=== PATIENT | female | born 1970 | race Caucasian/White ===

== ENCOUNTER 2019-03-19 10:24 | Observation (INO) | payer OTHER ==
[2019-03-19] MEDS ORDERED: SODIUM CHLORIDE 0.9% 1,000 ML IV STA (11:52)
[2019-03-19] MEDS ORDERED: SODIUM CHLORIDE 0.9% 500 ML 500 ML IV STA (11:52)
[2019-03-19] MEDS ORDERED: ONDANSETRON 4 MG/2 ML VIAL IVP STA (11:52)
[2019-03-19] MEDS ORDERED: PANTOPRAZOLE 40 MG/10 ML VIAL IVP STA (11:52)
[2019-03-19] MEDS ORDERED: HYDROmorphone 0.5 MG/0.5 ML SYRINGE IVP STA (11:59)
[2019-03-19 12:10] LABS: Appearance,Urine Cloudy (Clear); Bacteria,Urine Rare /hpf; Bilirubin,Urine Negative (Negative); Blood,Urine Negative (Negative); Color,Urine Yellow; Glucose,Urine (UA) 4+ (Negative); Ketones,Urine 1+ (Negative); Leukocyte Esterase,Urine Negative (Negative); Mucus,Urine Occasional /hpf; Nitrite,Urine Negative (Negative); Protein,Urine Negative (Negative); Specific Gravity,Urine 1.034 (1.001-1.035); Squamous Epithelial Cell,Urine 2 /hpf (0-4); Urobilinogen,Urine <2.0 mg/dL (<2.0)
[2019-03-19 12:21] LABS: Basophils % (A) 0 %; Eosinophils % (A) 0 %; HCT 47.5 % (34.0-46.0); HGB 15.7 gm/dL (11.4-16.0); Lymphocytes # (A) 0.5 k/uL (1.0-4.8); Lymphocytes % (A) 5 %; MCH 28.5 pg (25.0-35.0); MCV 86.3 fL (80.0-100.0); Mean Platelet Volume 8.6; Monocytes # (A) 0.2 k/uL (0-1.0); Monocytes % (A) 2 %; Neutrophils # (A) 7.9 k/uL (1.3-7.7); Neutrophils % (A) 92 %; Platelet Count 178 k/uL (150-450); RBC 5.51 m/uL (3.80-5.40); RDW 14.3 % (11.5-15.5); WBC 8.7 k/uL (3.8-10.6)
--- NOTE | 2019-03-19 12:24 | ED ---
Nausea/Vomiting/Diarrhea HPI - General Chief complaint: Nausea/Vomiting/Diarrhea Stated complaint: N/V/D Time Seen by Provider: 03/19/19 11:15 Source: patient, RN notes reviewed, old records reviewed Mode of arrival: wheelchair Limitations: no limitations - History of Present Illness Initial comments: This is a 48-year-old female the ER for evaluation she presents today for evaluation regards to nausea vomiting. Severe nausea vomiting abdominal pain. No current diarrhea. No fevers. All 5 hours of similar complaints. Patient is unable to keep down anything here in the ER with active vomiting here in the ER. Patient denies travel history or sick contacts. Bowel pain is improved is related to vomiting per patient. MD complaint: nausea, vomiting -: days(s) Description of Vomiting: food contents, watery Description of Diarrhea: water, mucous Associated Abdominal Pain: Yes Location: diffuse Radiation: none Severity: mild Quality: cramping, aching Consistency: intermittent Improves with: none Worsens with: none Context: sick contacts Associated Symptoms: denies other symptoms - Related Data Home Medications Medication Instructions Recorded Confirmed Clindamycin HCl 600 mg PO ONCE PRN 05/28/15 03/19/19 Cyclobenzaprine [Flexeril] 10 mg PO HS PRN 05/28/15 03/19/19 Insulin Aspart [NovoLOG Flexpen] See Protocol SQ AC-TID 05/28/15 03/19/19 Latanoprost 1 drop BOTH EYES HS 05/28/15 03/19/19 Levothyroxine Sodium [Synthroid] 50 mcg PO DAILY 05/28/15 03/19/19 Omeprazole 20 mg PO DAILY 05/28/15 03/19/19 Pregabalin [Lyrica] 75 mg PO BID 05/28/15 03/19/19 Propranolol [Inderal] 40 mg PO BID 05/28/15 03/19/19 DULoxetine HCL [Cymbalta] 30 mg PO HS 03/19/19 03/19/19 Insulin Degludec [Tresiba 120 units SQ HS 03/19/19 03/19/19 Flextouch U-200] metFORMIN HCL ER [Glucophage Xr] 500 mg PO PC-SUPPER 03/19/19 03/19/19 Allergies Allergy/AdvReac Type Severity Reaction Status Date / Time ciprofloxacin [From Cipro] Allergy Itching Verified 03/19/19 11:13 ciprofloxacin HCl Allergy Itching Verified 03/19/19 11:13 [From Cipro] erythromycin base Allergy Swelling Verified 03/19/19 11:13 Penicillins Allergy CHEST PAIN Verified 03/19/19 11:13 AND RASH codeine AdvReac Nausea & Verified 03/19/19 11:13 Vomiting morphine AdvReac HARD TIME Verified 03/19/19 11:13 WAKING UP AND B/P DROPS VERY LOW sulfamethoxazole AdvReac Nausea & Verified 03/19/19 11:13 [From Bactrim] Vomiting tramadol HCl [From Ultram] AdvReac Nausea & Verified 03/19/19 11:13 Vomiting trimethoprim [From Bactrim] AdvReac Nausea & Verified 03/19/19 11:13 Vomiting Review of Systems ROS Statement: Those systems with pertinent positive or pertinent negative responses have been documented in the HPI. ROS Other: All systems not noted in ROS Statement are negative. Past Medical History Past Medical History: Diabetes Mellitus, Hyperlipidemia, Seizure Disorder, Thyroid Disorder Additional Past Medical History / Comment(s): endometriostis, History of Any Multi-Drug Resistant Organisms: None Reported Past Surgical History: Cholecystectomy Additional Past Surgical History / Comment(s): breast reduction, bladder suspension Past Psychological History: Depression Smoking Status: Never smoker Past Alcohol Use History: Occasional Past Drug Use History: None Reported General Exam Limitations: no limitations General appearance: alert, in no apparent distress Head exam: Present: atraumatic, normocephalic, normal inspection Eye exam: Present: normal appearance, PERRL, EOMI. Absent: scleral icterus, conjunctival injection, periorbital swelling ENT exam: Present: normal exam, mucous membranes dry Neck exam: Present: normal inspection. Absent: tenderness, meningismus, lymphadenopathy Respiratory exam: Present: normal lung sounds bilaterally. Absent: respiratory distress, wheezes, rales, rhonchi, stridor Cardiovascular Exam: Present: normal rhythm, tachycardia, normal heart sounds. Absent: systolic murmur, diastolic murmur, rubs, gallop, clicks GI/Abdominal exam: Present: soft, normal bowel sounds. Absent: distended, tenderness, guarding, rebound, rigid Extremities exam: Present: normal inspection, full ROM, normal capillary refill. Absent: tenderness, pedal edema, joint swelling, calf tenderness Back exam: Present: normal inspection Neurological exam: Present: alert, oriented X3, CN II-XII intact Psychiatric exam: Present: normal affect, normal mood Skin exam: Present: warm, dry, intact, normal color. Absent: rash Course Vital Signs 03/19/19 03/19/19 10:52 11:45 Temperature 99.0 F Pulse Rate 114 H 103 H Respiratory 18 20 Rate Blood Pressure 119/73 125/75 O2 Sat by Pulse 95 95 Oximetry - Reevaluation(s) Reevaluation #1: 03/19/19 13:45 Medical record is reviewed Reevaluation #2: 03/19/19 13:45 Improvement in symptoms Medical Decision Making - Medical Decision Making 78 female the ER was significant nausea vomiting. Patient be admitted for intractable nausea vomiting here in the emergency room. Patient denies significant abdominal pain currently pain is improved. Patient has history of back pain secondary to chronic back pain. No fevers. Labwork shows dehydration and patient will be admitted - Lab Data Result diagrams: 03/19/19 12:00 03/19/19 12:00 Lab Results 03/19/19 03/19/19 03/19/19 Range/Units 11:50 12:00 12:00 WBC 8.7 (3.8-10.6) k/uL RBC 5.51 H (3.80-5.40) m/uL Hgb 15.7 (11.4-16.0) gm/dL Hct 47.5 H (34.0-46.0) % MCV 86.3 (80.0-100.0) fL MCH 28.5 (25.0-35.0) pg MCHC 33.0 (31.0-37.0) g/dL RDW 14.3 (11.5-15.5) % Plt Count 178 (150-450) k/uL Neutrophils % 92 % Lymphocytes % 5 % Monocytes % 2 % Eosinophils % 0 % Basophils % 0 % Neutrophils # 7.9 H (1.3-7.7) k/uL Lymphocytes # 0.5 L (1.0-4.8) k/uL Monocytes # 0.2 (0-1.0) k/uL Eosinophils # 0.0 (0-0.7) k/uL Basophils # 0.0 (0-0.2) k/uL Sodium 142 (137-145) mmol/L Potassium 4.0 (3.5-5.1) mmol/L Chloride 105 (98-107) mmol/L Carbon Dioxide 24 (22-30) mmol/L Anion Gap 13 mmol/L BUN 14 (7-17) mg/dL Creatinine 0.72 (0.52-1.04) mg/dL Est GFR (CKD-EPI)AfAm >90 (>60 ml/min/1.73 sqM) Est GFR (CKD-EPI)NonAf >90 (>60 ml/min/1.73 sqM) Glucose 258 H (74-99) mg/dL Plasma Lactic Acid Ilia (0.7-2.0) mmol/L Calcium 9.5 (8.4-10.2) mg/dL Phosphorus 3.8 (2.5-4.5) mg/dL Magnesium 1.6 (1.6-2.3) mg/dL Total Bilirubin 2.4 H (0.2-1.3) mg/dL AST 26 (14-36) U/L ALT 31 (9-52) U/L Alkaline Phosphatase 105 (38-126) U/L Creatine Kinase 47 (30-135) U/L Troponin I (0.000-0.034) ng/mL Total Protein 7.0 (6.3-8.2) g/dL Albumin 4.6 (3.5-5.0) g/dL Lipase (23-300) U/L Urine Color Yellow Urine Appearance Cloudy H (Clear) Urine pH 5.0 (5.0-8.0) Ur Specific [place] 1.034 (1.001-1.035) Urine Protein Negative (Negative) Urine Glucose (UA) 4+ H (Negative) Urine Ketones 1+ H (Negative) Urine Blood Negative (Negative) Urine Nitrite Negative (Negative) Urine Bilirubin Negative (Negative) Urine Urobilinogen <2.0 (<2.0) mg/dL Ur Leukocyte Esterase Negative (Negative) Urine WBC 1 (0-5) /hpf Ur Squamous Epith Cells 2 (0-4) /hpf Urine Bacteria Rare H (None) /hpf Urine Mucus Occasional H (None) /hpf 03/19/19 03/19/19 03/19/19 Range/Units 12:00 12:00 12:00 WBC (3.8-10.6) k/uL RBC (3.80-5.40) m/uL Hgb (11.4-16.0) gm/dL Hct (34.0-46.0) % MCV (80.0-100.0) fL MCH (25.0-35.0) pg MCHC (31.0-37.0) g/dL RDW (11.5-15.5) % Plt Count (150-450) k/uL Neutrophils % % Lymphocytes % % Monocytes % % Eosinophils % % Basophils % % Neutrophils # (1.3-7.7) k/uL Lymphocytes # (1.0-4.8) k/uL Monocytes # (0-1.0) k/uL Eosinophils # (0-0.7) k/uL Basophils # (0-0.2) k/uL Sodium (137-145) mmol/L Potassium (3.5-5.1) mmol/L Chloride (98-107) mmol/L Carbon Dioxide (22-30) mmol/L Anion Gap mmol/L BUN (7-17) mg/dL Creatinine (0.52-1.04) mg/dL Est GFR (CKD-EPI)AfAm (>60 ml/min/1.73 sqM) Est GFR (CKD-EPI)NonAf (>60 ml/min/1.73 sqM) Glucose (74-99) mg/dL Plasma Lactic Acid Ilia 2.5 H* (0.7-2.0) mmol/L Calcium (8.4-10.2) mg/dL Phosphorus (2.5-4.5) mg/dL Magnesium (1.6-2.3) mg/dL Total Bilirubin (0.2-1.3) mg/dL AST (14-36) U/L ALT (9-52) U/L Alkaline Phosphatase (38-126) U/L Creatine Kinase (30-135) U/L Troponin I <0.012 (0.000-0.034) ng/mL Total Protein (6.3-8.2) g/dL Albumin (3.5-5.0) g/dL Lipase 94 (23-300) U/L Urine Color Urine Appearance (Clear) Urine pH (5.0-8.0) Ur Specific [place] (1.001-1.035) Urine Protein (Negative) Urine Glucose (UA) (Negative) Urine Ketones (Negative) Urine Blood (Negative) Urine Nitrite (Negative) Urine Bilirubin (Negative) Urine Urobilinogen (<2.0) mg/dL Ur Leukocyte Esterase (Negative) Urine WBC (0-5) /hpf Ur Squamous Epith Cells (0-4) /hpf Urine Bacteria (None) /hpf Urine Mucus (None) /hpf - EKG Data -: EKG Interpreted by Me (EKG shows sinus rhythm rate of 97, SD 186, QRS 90, QTc 467) Disposition Clinical Impression: Dehydration, Gastroenteritis, Nausea & vomiting Disposition: ADMITTED IP TO THIS HOSP Condition: Fair Is patient prescribed a controlled substance at d/c from ED?: No Referrals: Nataly Jones DO [Primary Care Provider] - 1-2 days
[2019-03-19 12:34] LABS: ALT 31 U/L (9-52); AST 26 U/L (14-36); African American GFR (CKD) >90 (>60 ml/min/1.73 sqM); Albumin 4.6 g/dL (3.5-5.0); Alkaline Phosphatase 105 U/L (38-126); Anion Gap 13 mmol/L; Blood Urea Nitrogen 14 mg/dL (7-17); Calcium 9.5 mg/dL (8.4-10.2); Carbon Dioxide 24 mmol/L (22-30); Chloride 105 mmol/L (98-107); Creatine Kinase 47 U/L (30-135); Glucose 258 mg/dL (74-99); Magnesium 1.6 mg/dL (1.6-2.3); Phosphorus 3.8 mg/dL (2.5-4.5); Sodium 142 mmol/L (137-145); Total Bilirubin 2.4 mg/dL (0.2-1.3)
--- NOTE | 2019-03-19 12:39 | XR ---
EXAMINATION TYPE: XR chest 2V DATE OF EXAM: 03/19/2019 COMPARISON: Chest x-ray February 22, 2013 HISTORY: Weakness. TECHNIQUE: Frontal and lateral views of the chest are obtained. FINDINGS: There is mild chronic parenchymal change without suspicious focal air space opacity, pleur al effusion, or pneumothorax seen. The cardiac silhouette size is stable and upper limits of normal. The osseous structures are intact. Cholecystectomy clips are seen on lateral view. IMPRESSION: No acute cardiopulmonary process. No significant change from prior.
[2019-03-19] MEDS ORDERED: ONDANSETRON 4 MG/2 ML VIAL IVP PRN (13:47)
[2019-03-19] MEDS ORDERED: HYDROmorphone 1 MG/ML 1 ML SYRINGE IVP PRN (13:47)
[2019-03-19] MEDS ORDERED: diphenhydrAMINE 50 MG/ML 1 ML VIAL IVP STA (13:47)
[2019-03-19] MEDS ORDERED: METOCLOPRAMIDE 5 MG/ML 2 ML VIAL IVP STA (13:47)
--- NOTE | 2019-03-19 14:44 | CT ---
EXAMINATION TYPE: CT abdomen pelvis w con DATE OF EXAM: 03/19/2019 HISTORY: Nausea, vomiting and diarrhea. CT DLP: 907.4mGycm Automated Exposure Control for Dose Reduction was Utilized. CONTRAST: CT scan of the abdomen and pelvis is performed with IV Contrast, patient injected with 100 mL of Isov ue M300. COMPARISON: CT abdomen and pelvis May 15, 2015 FINDINGS: LUNG BASES: Bibasilar linear scarring and/or atelectasis. LIVER/GB: Cholecystectomy clips are redemonstrated. PANCREAS: No significant abnormality is seen. SPLEEN: No significant abnormality is seen. ADRENALS: No significant abnormality is seen. KIDNEYS: There is stable 4 mm calculus mid pole level left kidney axial image 38. There is symmetric cortical medullary uptake and excretion without hydronephrosis seen bilaterally. A few small simple a ppearing thin-walled cysts are scattered throughout the right kidney laterally. Scattered bilateral p elvic phleboliths are redemonstrated. No intraluminal calculus and bladder is seen. BOWEL: Evaluation bowel suboptimal secondary to lack of enteric contrast. No suspicious small or larg e bowel dilatation. Mild wall thickening proximal to mid transverse colon through the rectum presumed product of poor distention, mild colitis is not entirely excluded UTERUS/ADNEXA: No gross abnormality seen. LYMPH NODES: No greater than 1cm abdominal or pelvic lymph nodes are appreciated. OSSEOUS STRUCTURES: Multilevel facet arthropathy mid to lower lumbar spine. OTHER: No significant additional abnormality is seen. IMPRESSION: No significant new or acute finding is seen to account for patient's clinical symptoms.
[2019-03-19] MEDS ORDERED: CYCLOBENZAPRINE 10 MG TAB PO PRN (15:02)
[2019-03-19] MEDS ORDERED: ACETAMINOPHEN TAB 325 MG TAB PO PRN (15:07)
--- NOTE | 2019-03-19 15:23 | P.HPIM ---
History of Present Illness H&P Date: 03/19/19 Chief Complaint: Vomiting and diarrhea 1 day This is a 48-year-old female, a patient of [facility]. She has a known past medical history of diabetes mellitus, hyperlipidemia, hypothyroidism, seizure disorder in which she is no longer on any medications and last seizure was 3-4 years ago. Patient presents to the emergency room with complaints of vomiting and diarrhea that started yesterday. She is unable to keep any fluids or foods down. She does have family members at home with similar symptoms. Patient had a low-grade temp of 99.3 heart rate of 114 and lactic level of 2.5 magnesium is 1.6. She's been given IV fluids Protonix and IV Zofran in the ER. Stool studies have been ordered. Computed tomography scan the abdomen and pelvis is negative. Chest x-ray is negative. UTI negative for infection. EKG normal sinus rhythm with a prolonged QT interval with QTC 467. Patient admits to having some chills. Denies any chest pain or shortness of breath. Denies any urinary symptoms. Complains of some epigastric discomfort. LFTs and lipase are normal. Review of Systems Please refer to HPI otherwise unremarkable Past Medical History Past Medical History: Diabetes Mellitus, Hyperlipidemia, Seizure Disorder, Thyroid Disorder Additional Past Medical History / Comment(s): endometriostis, History of Any Multi-Drug Resistant Organisms: None Reported Past Surgical History: Cholecystectomy Additional Past Surgical History / Comment(s): breast reduction, bladder suspension Past Psychological History: Depression Smoking Status: Never smoker Past Alcohol Use History: Occasional Past Drug Use History: None Reported Medications and Allergies Home Medications Medication Instructions Recorded Confirmed Type Clindamycin HCl 600 mg PO ONCE PRN 05/28/15 03/19/19 History Cyclobenzaprine [Flexeril] 10 mg PO HS PRN 05/28/15 03/19/19 History Insulin Aspart [NovoLOG Flexpen] See Protocol SQ AC-TID 05/28/15 03/19/19 History Latanoprost 1 drop BOTH EYES HS 05/28/15 03/19/19 History Levothyroxine Sodium [Synthroid] 50 mcg PO DAILY 05/28/15 03/19/19 History Omeprazole 20 mg PO DAILY 05/28/15 03/19/19 History Pregabalin [Lyrica] 75 mg PO BID 05/28/15 03/19/19 History Propranolol [Inderal] 40 mg PO BID 05/28/15 03/19/19 History DULoxetine HCL [Cymbalta] 30 mg PO HS 03/19/19 03/19/19 History Insulin Degludec [Tresiba 120 units SQ HS 03/19/19 03/19/19 History Flextouch U-200] metFORMIN HCL ER [Glucophage Xr] 500 mg PO PC-SUPPER 03/19/19 03/19/19 History Allergies Allergy/AdvReac Type Severity Reaction Status Date / Time ciprofloxacin [From Cipro] Allergy Itching Verified 03/19/19 15:03 ciprofloxacin HCl Allergy Itching Verified 03/19/19 15:03 [From Cipro] erythromycin base Allergy Swelling Verified 03/19/19 15:03 Penicillins Allergy CHEST PAIN Verified 03/19/19 15:03 AND RASH codeine AdvReac Nausea & Verified 03/19/19 15:03 Vomiting morphine AdvReac HARD TIME Verified 03/19/19 15:03 WAKING UP AND B/P DROPS VERY LOW sulfamethoxazole AdvReac Nausea & Verified 03/19/19 15:03 [From Bactrim] Vomiting tramadol HCl [From Ultram] AdvReac Nausea & Verified 03/19/19 15:03 Vomiting trimethoprim [From Bactrim] AdvReac Nausea & Verified 03/19/19 15:03 Vomiting Physical Exam Vitals: Vital Signs Temp Pulse Resp BP Pulse Ox 03/19/19 14:57 99.0 F 82 18 110/69 99 03/19/19 13:30 99.3 F 95 18 109/69 95 03/19/19 11:45 103 H 20 125/75 95 03/19/19 10:52 99.0 F 114 H 18 119/73 95 Intake and Output 03/19/19 03/19/19 03/19/19 06:59 14:59 22:59 Other: Weight 81.647 kg Head normocephalic Neck supple Lungs clear to auscultation bilaterally no wheezing or crackles Heart regular rate and rhythm S1-S2, no rub or gallop Abdomen is soft epigastric tenderness nondistended positive bowel sounds no hepatosplenomegaly Extremities no edema Neuro alert and orientated to 3 Results CBC & Chem 7: 03/19/19 12:00 03/19/19 12:00 Labs: Abnormal Lab Results - Last 24 Hours (Table) 03/19/19 03/19/19 03/19/19 Range/Units 11:50 12:00 12:00 RBC 5.51 H (3.80-5.40) m/uL Hct 47.5 H (34.0-46.0) % Neutrophils # 7.9 H (1.3-7.7) k/uL Lymphocytes # 0.5 L (1.0-4.8) k/uL Glucose 258 H (74-99) mg/dL Plasma Lactic Acid Ilia (0.7-2.0) mmol/L Total Bilirubin 2.4 H (0.2-1.3) mg/dL Urine Appearance Cloudy H (Clear) Urine Glucose (UA) 4+ H (Negative) Urine Ketones 1+ H (Negative) Urine Bacteria Rare H (None) /hpf Urine Mucus Occasional H (None) /hpf 03/19/19 Range/Units 12:00 RBC (3.80-5.40) m/uL Hct (34.0-46.0) % Neutrophils # (1.3-7.7) k/uL Lymphocytes # (1.0-4.8) k/uL Glucose (74-99) mg/dL Plasma Lactic Acid Ilia 2.5 H* (0.7-2.0) mmol/L Total Bilirubin (0.2-1.3) mg/dL Urine Appearance (Clear) Urine Glucose (UA) (Negative) Urine Ketones (Negative) Urine Bacteria (None) /hpf Urine Mucus (None) /hpf Assessment and Plan Assessment: 1. Intractable vomiting and diarrhea 1 day: Computed tomography scan abdomen and pelvis is negative. Continue IV Protonix and IV Zofran as needed. continue with IV fluid hydration. Check stool studies 2. Elevated lactic acid level likely related to dehydration: Continue with IV fluids. Repeat lactic acid level. 3. Diabetes mellitus type 2: Add sliding scale coverage. Check hemoglobin A1c. Resume patient's home insulin. Hold metformin during patient's hospitalization. 4. Hypomagnesemia magnesium level I.6. We'll give magnesium supplement. Repeat magnesium level in a.m. 5. Hypothyroidism continue Synthroid 6. Past history of a seizure disorder. Seizure medications were discontinued by her neurologist. Patient hasn't not had any seizure activity over the last 3-4 years. Medications discontinued 3-4 years ago. 7. EKG normal sinus rhythm with prolonged QT interval QTC of 467. Repeat EKG in a.m. GI prophylaxis Protonix and DVT prophylaxis Lovenox Time with Patient: Greater than 30 (Greater than 50% of the total time spent in counseling and coordination of care.I performed an examination of the patient and discussed their management with the physician Executive Assistant To General Counsel. I have reviewed the Physician Executive Assistant To General Counsel's notes and agree with the documented findings and plan of care)
[2019-03-19] MEDS ORDERED: MAGNESIUM SULFATE-D5W PMX 1 GM in DEXTROSE/WATER 1 100ML.BAG IVPB ONE (15:30)
[2019-03-19 18:10] LABS: Glucose,Whole Blood 141 mg/dL (75-99)
[2019-03-19] MEDS: INSULIN ASPART (NovoLOG) 100 UNIT/ML VIAL SQ SCH ×2 (18:24→21:51)
[2019-03-19] MEDS ORDERED: LATANOPROST 0.005% OPHTH DROPS 2.5 ML BTL BOTH EYES SCH (21:00)
[2019-03-19] MEDS ORDERED: INSULIN DETEMIR (LEVEMIR) 100 UNIT/ML SYR SQ SCH ×2 (21:00)
[2019-03-19] MEDS ORDERED: DULoxetine HCL 30 MG CAPSULE.DR PO SCH (21:00)
[2019-03-19 21:28] LABS: Glucose,Whole Blood 81 mg/dL (75-99)
[2019-03-19] MEDS: PROPRANOLOL 40 MG TAB PO SCH (21:55)
[2019-03-19] MEDS: PREGABALIN 75 MG CAP PO SCH (21:55)
[2019-03-20 01:21] LABS: Hemoglobin A1C 8.6 % (4.0-6.0)
[2019-03-20] MEDS: ACETAMINOPHEN TAB 500 MG TAB PO PRN ×2 (05:14→12:25)
[2019-03-20] MEDS ORDERED: LEVOTHYROXINE 50 MCG TAB PO SCH (06:30)
[2019-03-20 06:57] LABS: Glucose,Whole Blood 73 mg/dL (75-99)
[2019-03-20] MEDS: INSULIN ASPART (NovoLOG) 100 UNIT/ML VIAL SQ SCH ×2 (07:15→12:21)
[2019-03-20] MEDS: PROPRANOLOL 40 MG TAB PO SCH (08:53)
[2019-03-20] MEDS: PREGABALIN 75 MG CAP PO SCH (08:53)
[2019-03-20] MEDS ORDERED: PANTOPRAZOLE 40 MG/10 ML VIAL IVP SCH (09:00)
[2019-03-20] MEDS ORDERED: ENOXAPARIN 40 MG/0.4 ML SYRINGE SQ SCH (09:00)
[2019-03-20 09:35] VITALS: RESP 16
[2019-03-20 11:42] LABS: ALT 38 U/L (9-52); AST 27 U/L (14-36); African American GFR (CKD) >90 (>60 ml/min/1.73 sqM); Albumin 3.2 g/dL (3.5-5.0); Alkaline Phosphatase 74 U/L (38-126); Anion Gap 5 mmol/L; Blood Urea Nitrogen 9 mg/dL (7-17); Calcium 8.4 mg/dL (8.4-10.2); Carbon Dioxide 26 mmol/L (22-30); Chloride 110 mmol/L (98-107); Glucose 146 mg/dL (74-99); Magnesium 1.9 mg/dL (1.6-2.3); Potassium 3.5 mmol/L (3.5-5.1); Sodium 141 mmol/L (137-145); Total Bilirubin 2.6 mg/dL (0.2-1.3); Total Protein 5.3 g/dL (6.3-8.2)
[2019-03-20 11:55] LABS: Basophils % (A) 0 %; Eosinophils # (A) 0.1 k/uL (0-0.7); Eosinophils % (A) 1 %; HCT 39.4 % (34.0-46.0); Lymphocytes # (A) 1.3 k/uL (1.0-4.8); Lymphocytes % (A) 25 %; MCHC 31.8 g/dL (31.0-37.0); MCV 87.9 fL (80.0-100.0); Mean Platelet Volume 8.2; Monocytes # (A) 0.3 k/uL (0-1.0); Monocytes % (A) 6 %; Neutrophils # (A) 3.3 k/uL (1.3-7.7); Neutrophils % (A) 66 %; Platelet Count 147 k/uL (150-450); RBC 4.48 m/uL (3.80-5.40); RDW 14.2 % (11.5-15.5)
[2019-03-20 12:05] LABS: HGB 12.5 gm/dL (11.4-16.0)
[2019-03-20 12:17] LABS: Glucose,Whole Blood 140 mg/dL (75-99)
[2019-03-20 12:39] VITALS: BP 104/65; PULSE 72; TEMP 97.7
[2019-03-20] MEDS ORDERED: POTASSIUM CHLORIDE ER 20 MEQ TAB.ER PO STA (13:12)
--- NOTE | 2019-03-20 13:16 | P.DS ---
Providers Date of admission: 03/19/19 13:46 Expected date of discharge: 03/20/19 Attending physician: Osbaldo Noel Primary care physician: Nataly Jones [facility] Course: Discharge diagnosis 1. Intractable vomiting and diarrhea 1 day: Symptoms haven't resolved. Likely secondary to a viral gastroenteritis or food poisoning. Patient treated with IV fluids, Protonix and Zofran as needed. Computed tomography scan abdomen and pelvis is negative. Tolerated advancement of diet. 2. Elevated lactic acid level likely related to dehydration: Resolved with IV fluids 3. Diabetes mellitus type 2: Hemoglobin A1c 8.6. Continue with home insulin 4. Hypomagnesemia : Magnesium level I.9 at discharge improved with supplement 5. Hypothyroidism continue Synthroid 6. Past history of a seizure disorder. Seizure medications were discontinued by her neurologist. Patient hasn't not had any seizure activity over the last 3-4 years. Medications discontinued 3-4 years ago. 7. EKG normal sinus rhythm with prolonged QT interval QTC of 467. Repeat EKG showing a normal QTC Of 457 no longer having a prolonged QT interval 8. Hypokalemia potassium 3.5 at discharge. Patient received K-Dur 20 milliequivalents prior to discharge Hospital course This is a 48-year-old female, a patient of [facility]. She has a known past medical history of diabetes mellitus, hyperlipidemia, hypothyroidism, seizure disorder in which she is no longer on any medications and last seizure was 3-4 years ago. Patient presents to the emergency room with complaints of vomiting and diarrhea that started yesterday. She is unable to keep any fluids or foods down. She does have family members at home with similar symptoms. Patient had a low-grade temp of 99.3 heart rate of 114 and lactic level of 2.5 magnesium is 1.6. She's been given IV fluids Protonix and IV Zofran in the ER. Stool studies have been ordered. Computed tomography scan the abdomen and pelvis is negative. Chest x-ray is negative. UTI negative for infection. EKG normal sinus rhythm with a prolonged QT interval with QTC 467. Patient admits to having some chills. Denies any chest pain or shortness of breath. Denies any urinary symptoms. Complains of some epigastric discomfort. LFTs and lipase are normal. 03/20/2019 patient's symptoms have resolved. No longer having any diarrhea and therefore was unable to collect stool study. Vomiting also has resolved. She was treated with IV fluids, IV Protonix and Zofran as needed. Is no longer require the Zofran has tolerated advancement of diet. Symptoms resolved. Computed tomography scan of the abdomen showing no acute changes. Patient's epigastric level has also normalized. Patient's symptoms have improved she is medically stable for discharge. We'll have her follow-up with PCP in 1 week. Recommend checking BMP and magnesium level in 1 week. I performed an examination of the patient and discussed their management with the physician Supervisory Clerk. I have reviewed the Physician Supervisory Clerk's notes and agree with the documented findings and plan of care Patient Condition at Discharge: Stable Plan - Discharge Summary New Discharge Prescriptions: New Omeprazole 20 mg PO DAILY #30 tablet.dr Continue Propranolol [Inderal] 40 mg PO BID Cyclobenzaprine [Flexeril] 10 mg PO HS PRN PRN Reason: MUSCLE SPASMS Pregabalin [Lyrica] 75 mg PO BID Levothyroxine Sodium [Synthroid] 50 mcg PO DAILY Latanoprost 1 drop BOTH EYES HS Insulin Aspart [NovoLOG Flexpen] See Protocol SQ AC-TID Clindamycin HCl 600 mg PO ONCE PRN PRN Reason: DENTAL APPOINTMENTS metFORMIN HCL ER [Glucophage Xr] 500 mg PO PC-SUPPER Insulin Degludec [Tresiba Flextouch U-200] 100 units SQ HS DULoxetine HCL [Cymbalta] 30 mg PO HS Discontinued Omeprazole 20 mg PO DAILY Discharge Medication List Clindamycin HCl 600 mg PO ONCE PRN 05/28/15 [History] Cyclobenzaprine [Flexeril] 10 mg PO HS PRN 05/28/15 [History] Insulin Aspart [NovoLOG Flexpen] See Protocol SQ AC-TID 05/28/15 [History] Latanoprost 1 drop BOTH EYES HS 05/28/15 [History] Levothyroxine Sodium [Synthroid] 50 mcg PO DAILY 05/28/15 [History] Pregabalin [Lyrica] 75 mg PO BID 05/28/15 [History] Propranolol [Inderal] 40 mg PO BID 05/28/15 [History] DULoxetine HCL [Cymbalta] 30 mg PO HS 03/19/19 [History] Insulin Degludec [Tresiba Flextouch U-200] 100 units SQ HS 03/19/19 [History] metFORMIN HCL ER [Glucophage Xr] 500 mg PO PC-SUPPER 03/19/19 [History] Omeprazole 20 mg PO DAILY #30 tablet. 03/20/19 [Rx] Follow up Appointment(s)/Referral(s): Nataly Jones DO [Primary Care Provider] - 1 Week Activity/Diet/Wound Care/Special Instructions: Diet: bland and advance as tolerated over the next 3 days Activity: as tolerated Discharge Disposition: HOME SELF-CARE
== END 2019-03-20 14:17 | disposition home or self-care (01) ==
LOC: EC 10:24 → 6PED 13:46
PROVIDERS: ADMIT Internal Medicine; ATTEND Internal Medicine
DX: R11.2 Nausea with vomiting, unspecified (principal); E86.0 Dehydration; E83.42 Hypomagnesemia; R10.9 Unspecified abdominal pain; R19.7 Diarrhea, unspecified; R74.0 Nonspecific elevation of levels of transaminase and lactic acid dehydrogenase [LDH]; E11.9 Type 2 diabetes mellitus without complications; E03.9 Hypothyroidism, unspecified; E87.6 Hypokalemia; R68.83 Chills (without fever); E78.5 Hyperlipidemia, unspecified; F32.9 Major depressive disorder, single episode, unspecified; M54.9 Dorsalgia, unspecified; G89.29 Other chronic pain; Z79.4 Long term (current) use of insulin; Z79.890 Hormone replacement therapy; Z79.899 Other long term (current) drug therapy; Z88.0 Allergy status to penicillin; Z88.1 Allergy status to other antibiotic agents; Z88.2 Allergy status to sulfonamides; Z88.5 Allergy status to narcotic agent; Z90.49 Acquired absence of other specified parts of digestive tract; Z87.42 Personal history of other diseases of the female genital tract; Z86.69 Personal history of other diseases of the nervous system and sense organs
CPT/HCPCS: 96361 ×3; 96372; 96376; 96365; 96375; 99285; 36415; 93005 ×2; 80053 ×2; 82550; 83605; 83690; 83735 ×2; 84100; 84484; 85025 ×2; 81001; 83036; 71046; 74177; G0378 ×2; J1200; J2765; J2405; J1650; J3475; C9113 ×2; J1170; Q9967

== ENCOUNTER 2019-07-03 18:52 | Emergency (ER) | payer OTHER ==
[2019-07-03 19:27] VITALS: RESP 18
[2019-07-03] MEDS ORDERED: HYDROmorphone 0.5 MG/0.5 ML SYRINGE IVP STA (19:39)
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
[2019-07-03 20:28] LABS: Glucose,Whole Blood 113 mg/dL (75-99)
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
[2019-07-03] MEDS ORDERED: ONDANSETRON 4 MG/2 ML VIAL IVP STA (21:04)
[2019-07-03 22:28] VITALS: BP 115/83; PULSE 64; TEMP 97.5
== END 2019-07-03 22:28 | disposition home or self-care (01) ==
LOC: EC 18:52
DX: S16.1XXA Strain of muscle, fascia and tendon at neck level, initial encounter (principal); R51 Headache; E11.9 Type 2 diabetes mellitus without complications; G40.909 Epilepsy, unspecified, not intractable, without status epilepticus; H40.9 Unspecified glaucoma; F32.9 Major depressive disorder, single episode, unspecified; Z88.0 Allergy status to penicillin; Z88.1 Allergy status to other antibiotic agents; Z88.2 Allergy status to sulfonamides; Z88.5 Allergy status to narcotic agent; Z79.4 Long term (current) use of insulin; Z79.899 Other long term (current) drug therapy; V59.49XA Driver of pick-up truck or van injured in collision with other motor vehicles in traffic accident, initial encounter; Y92.410 Unspecified street and highway as the place of occurrence of the external cause
CPT/HCPCS: 36415; 72125; 70450; 99285; 96374; 96375; J2405; J1170

== ENCOUNTER 2019-07-31 07:04 | Emergency (ER) | payer OTHER ==
[2019-07-31] MEDS ORDERED: FAMOTIDINE 20 MG/2 ML VIAL IV STA (07:19)
[2019-07-31] MEDS ORDERED: diphenhydrAMINE 50 MG/ML 1 ML VIAL IVP STA (07:19)
[2019-07-31] MEDS ORDERED: methylPREDNISolone SOD SUCCI 125 MG/2 ML VIAL IV STA (07:20)
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
[2019-07-31 07:32] VITALS: RESP 18
[2019-07-31 08:00] LABS: Basophils % (A) 0 %; Eosinophils # (A) 0.1 k/uL (0-0.7); Eosinophils % (A) 1 %; HCT 48.4 % (34.0-46.0); HGB 16.2 gm/dL (11.4-16.0); Lymphocytes # (A) 2.3 k/uL (1.0-4.8); Lymphocytes % (A) 20 %; MCH 29.4 pg (25.0-35.0); MCHC 33.4 g/dL (31.0-37.0); MCV 87.9 fL (80.0-100.0); Mean Platelet Volume 6.6; Monocytes # (A) 0.2 k/uL (0-1.0); Monocytes % (A) 2 %; Neutrophils # (A) 9.1 k/uL (1.3-7.7); Neutrophils % (A) 77 %; Platelet Count 269 k/uL (150-450); RBC 5.51 m/uL (3.80-5.40); RDW 13.2 % (11.5-15.5); WBC 11.8 k/uL (3.8-10.6)
[2019-07-31 08:09] LABS: Albumin 3.8 g/dL (3.5-5.0); Calcium 9.2 mg/dL (8.4-10.2); Potassium 3.5 mmol/L (3.5-5.1); Total Bilirubin 1.8 mg/dL (0.2-1.3); Total Protein 6.3 g/dL (6.3-8.2)
[2019-07-31] MEDS ORDERED: SODIUM CHLORIDE 0.9% 500 ML 500 ML IV STA (08:49)
--- NOTE | 2019-07-31 08:58 | CT ---
EXAMINATION TYPE: CT brain tab wo con DATE OF EXAM: 07/31/2019 COMPARISON: 07/03/2019 HISTORY: 48-year-old female with head pain, confusion, altered mental status post fall CT DLP: 1459.3 mGycm Automated exposure control for dose reduction was used. Technique: Examination of the head was done in axial plane without intravenous contrast. Coronal and sagittal reconstructions performed. CT of the cervical spine was obtained in axial plane without intravenous injection of contrast mater ial. Coronal and sagittal reformatted images were obtained from the axial views for evaluation of f ractures, spinal alignment and canal. FINDINGS: Head: There is no evidence of acute intracranial hemorrhage, acute ischemic changes, mass, mass-effect, or extra-axial fluid collection. There is no effacement of cerebral sulci or basal subarachnoid cister ns. There is no hydrocephalus. There is no midline shift. Weller-white matter distinction is preserv ed. Benign basal ganglionic calcifications. Mastoid air cells well pneumatized. Orbits and globes are int act. No calvarial fracture. Paranasal sinuses and mastoid air cells well pneumatized. Rightward nasal sep david deviation. Cervical spine: Small amount of venous air within the left supraclavicular fossa likely relating to peripheral line p lacement. The alignment of the cervical spine is normal on coronal and reformatted images. There is n o cranial vertebral abnormality. Fracture of the cervical spine is not seen. Assessment of the spinal canal from C4-C5 and below is limited due to artifact from patient's shoulders. Mild degenerative di sc disease mid to lower cervical spine. No significant neuroforaminal stenosis seen. Sagittal and cor onal reformatted images confirm above findings. COMBINED IMPRESSION: 1. No acute intracranial abnormality seen. 2. No acute fracture or malalignment of the cervical spine.
--- NOTE | 2019-07-31 09:28 | XR ---
EXAMINATION TYPE: AP view pelvis and 2 views left hip DATE OF EXAM: 07/31/2019 COMPARISON: NONE HISTORY: 48-year-old female with fall and left hip pain FINDINGS: Mild marginal spurring along the acetabular margin. No acute fracture, subluxation, or dislocation is seen. Multiple pelvic phleboliths. IMPRESSION: No acute osseous abnormality seen.
--- NOTE | 2019-07-31 09:30 | XR ---
EXAMINATION TYPE: XR chest 2V DATE OF EXAM: 07/31/2019 COMPARISON: 03/19/2019 HISTORY: Weakness and hypoxemia TECHNIQUE: Frontal and lateral views of the chest are obtained. FINDINGS: New somewhat nodular density in the right lower lung. Strand-like left basilar atelectasis is seen. No suspicious focal consolidation, pleural effusion or pneumothorax. Cardiomediastinal silh ouette is upper limits of normal size. Cholecystectomy clips are seen. IMPRESSION: New somewhat nodular density in the right lower lung. Short-term follow-up chest x-ray w ith good inspiration is recommended as this nodular density was not seen on the exam of 03/19/2019 and therefore may simply represent atelectasis versus small pulmonary nodule. Linear atelectasis at the left lung base is also seen, subsegmental.
[2019-07-31 10:10] VITALS: BP 117/79; PULSE 66; TEMP 97.4
== END 2019-07-31 10:10 | disposition home or self-care (01) ==
LOC: EC 07:04
DX: R60.0 Localized edema (principal); T50.905A Adverse effect of unspecified drugs, medicaments and biological substances, initial encounter; R68.89 Other general symptoms and signs; R53.83 Other fatigue; E11.9 Type 2 diabetes mellitus without complications; H40.9 Unspecified glaucoma; G40.909 Epilepsy, unspecified, not intractable, without status epilepticus; F32.9 Major depressive disorder, single episode, unspecified; Z88.0 Allergy status to penicillin; Z88.1 Allergy status to other antibiotic agents; Z88.2 Allergy status to sulfonamides; Z88.5 Allergy status to narcotic agent; Z79.4 Long term (current) use of insulin; Z79.891 Long term (current) use of opiate analgesic; Z79.899 Other long term (current) drug therapy
CPT/HCPCS: 99285; 96374; 96375 ×2; 36415; 93005; 80053; 82550; 83690; 83735; 84484; 85025; 73502; 71046; 72125; 70450; J1200; J2930

== ENCOUNTER 2019-11-08 06:44 | Day surgery (SDC) | payer OTHER ==
[2019-11-05 14:08] VITALS: BMI 28.1
[~2019-11-08 06:44] MED LIST: LACTATED RINGERS 1,000 ML IV SCH; LIDOCAINE 1% 20 ML VIAL (10MG/ML) FOR IV START INTRADERMA PRN
[2019-11-08 07:19] VITALS: TEMP 97.8
[2019-11-08 07:26] LABS: Glucose,Whole Blood 215 mg/dL (75-99)
[2019-11-08] MEDS ORDERED: LIDOCAINE 1% INJ 10MG/ML (20 ML MDV) ONE (07:40)
[2019-11-08] MEDS ORDERED: PROPOFOL 10 MG/ML 20 ML VIAL IV ONE (07:40)
--- NOTE | 2019-11-08 07:52 | P.GSHP ---
History of Present Illness H&P Date: 11/08/19 Chief Complaint: GERD, diarrhea This a 49-year-old female who presents today for EGD and colonoscopy. She is issues with GERD and diarrhea. Past Medical History Past Medical History: Diabetes Mellitus, Hyperlipidemia, Seizure Disorder, Thyroid Disorder Additional Past Medical History / Comment(s): endometriosis, glaucoma. taken off seizure meds. 2016 no seizure activity since History of Any Multi-Drug Resistant Organisms: None Reported Past Surgical History: Bladder Surgery, Breast Surgery, Cholecystectomy, Hysterectomy Additional Past Surgical History / Comment(s): breast reduction, bladder suspension Past Anesthesia/Blood Transfusion Reactions: No Reported Reaction Additional Past Anesthesia/Blood Transfusion Reaction / Comment(s): never had Past Psychological History: Depression Smoking Status: Never smoker Past Alcohol Use History: Rare Past Drug Use History: None Reported - Past Family History Mother Family Medical History: Coronary Artery Disease (CAD), Hypertension Father Family Medical History: Blood Disorder, Coronary Artery Disease (CAD), Myocardial Infarction ([place]) Additional Family Medical History / Comment(s): polycythemia blood disorder Medications and Allergies Home Medications Medication Instructions Recorded Confirmed Type Insulin Aspart [NovoLOG Flexpen] See Protocol SQ AC-TID PRN 05/28/15 11/08/19 History Latanoprost 1 drop BOTH EYES HS 05/28/15 11/08/19 History Pregabalin [Lyrica] 75 mg PO HS 05/28/15 11/08/19 History Propranolol [Inderal] 40 mg PO HS 05/28/15 11/08/19 History DULoxetine HCL [Cymbalta] 30 mg PO HS 03/19/19 11/08/19 History Insulin Degludec [Tresiba 100 units SQ HS 03/19/19 11/08/19 History Flextouch U-200] metFORMIN HCL ER [Glucophage Xr] 500 mg PO HS 03/19/19 11/08/19 History Magnesium 200 mg PO HS 07/03/19 11/08/19 History diphenhydrAMINE HCL [Benadryl] 25 mg PO HS 07/03/19 11/08/19 History Cyclobenzaprine [Flexeril] 10 mg PO TID PRN 11/05/19 11/08/19 History EPINEPHrine (Auto Inject) [Epipen] 0.3 mg IM ONCE PRN 11/05/19 11/08/19 History Levothyroxine Sodium [Synthroid] 50 mcg PO DAILY 11/05/19 11/08/19 History Timolol 0.25% Ophth Soln [Timoptic 1 drops BOTH EYES HS 11/08/19 11/08/19 History 0.25% Ophth Soln] Allergies Allergy/AdvReac Type Severity Reaction Status Date / Time ciprofloxacin [From Cipro] Allergy Itching Verified 11/05/19 13:55 ciprofloxacin HCl Allergy Itching Verified 11/05/19 13:55 [From Cipro] erythromycin base Allergy Swelling Verified 11/05/19 13:55 naproxen Allergy Anaphylaxis Verified 11/05/19 13:55 Penicillins Allergy CHEST PAIN Verified 11/05/19 13:55 AND RASH codeine AdvReac Nausea & Verified 11/05/19 13:55 Vomiting morphine AdvReac HARD TIME Verified 11/05/19 13:55 WAKING UP AND B/P DROPS VERY LOW sulfamethoxazole AdvReac Nausea & Verified 11/05/19 13:55 [From Bactrim] Vomiting tramadol HCl [From Ultram] AdvReac Nausea & Verified 11/05/19 13:55 Vomiting trimethoprim [From Bactrim] AdvReac Nausea & Verified 11/05/19 13:55 Vomiting Surgical - Exam Vital Signs Temp Pulse Resp BP Pulse Ox 97.8 F 107 H 20 125/92 95 11/08/19 07:13 11/08/19 07:13 11/08/19 07:13 11/08/19 07:13 11/08/19 07:13 - General well developed, well nourished, no distress - Eyes PERRL - ENT normal pinna - Neck no masses - Respiratory normal expansion - Cardiovascular Rhythm: regular - Abdomen Abdomen: soft Results - Labs Abnormal Lab Results - Last 24 Hours (Table) 11/08/19 Range/Units 07:17 POC Glucose (mg/dL) 215 H (75-99) mg/dL Assessment and Plan Assessment: GERD. We'll perform EGD and colonoscopy
--- NOTE | 2019-11-08 08:07 | P.OP ---
Date of Procedure: 11/08/19 Preoperative Diagnosis: GERD Diarrhea Postoperative Diagnosis: Antral gastritis No evidence of hiatal hernia Procedure(s) Performed: EGD Anesthesia: MAC Surgeon: Tu Pena Pathology: other (Antrum) Condition: stable Disposition: PACU Description of Procedure: The patient's placed on the endoscopy table in the lateral position. She received IV sedation. The gastroscope placed oropharynx and passed in the esophagus and into the stomach. Scope was then placed through the pylorus. The first and second portion of the duodenum appeared normal. Scope was then brought back the antrum and this is mildly inflamed. A biopsies performed. Scope was then retroflexed and remainder of the stomach appeared normal. The GE junction was at 40 cm. The distal esophagus appeared normal. There is no significant hiatal hernia. The proximal esophagus appeared normal. Scope withdrawn for patient. Next digital rectal exam was performed. There were no abnormalities. The possible colonoscope was then placed patient anus passed throughout the entire colon. The ileocecal valve was visualized. The cecum, ascending and transverse colon appeared normal. The descending and sigmoid colon appeared normal. The scope was then brought back the rectum this appeared normal. There is known to any inflammatory changes or any evidence of colitis. Scope was withdrawn for patient.
[2019-11-08 08:25] VITALS: BP 104/66; PULSE 80; RESP 16
== END 2019-11-08 09:03 | disposition home or self-care (01) ==
LOC: ORWHC2ENDO 06:44
PROVIDERS: ATTEND Surgery
DX: K29.50 Unspecified chronic gastritis without bleeding (principal); K21.9 Gastro-esophageal reflux disease without esophagitis; R19.7 Diarrhea, unspecified; E11.9 Type 2 diabetes mellitus without complications; E78.5 Hyperlipidemia, unspecified; E07.9 Disorder of thyroid, unspecified; N80.9 Endometriosis, unspecified; H40.9 Unspecified glaucoma; F32.9 Major depressive disorder, single episode, unspecified; K08.89 Other specified disorders of teeth and supporting structures; Z86.69 Personal history of other diseases of the nervous system and sense organs; Z98.890 Other specified postprocedural states; Z90.49 Acquired absence of other specified parts of digestive tract; Z90.710 Acquired absence of both cervix and uterus; Z79.4 Long term (current) use of insulin; Z79.899 Other long term (current) drug therapy; Z79.890 Hormone replacement therapy; Z88.1 Allergy status to other antibiotic agents; Z88.6 Allergy status to analgesic agent; Z88.0 Allergy status to penicillin; Z88.5 Allergy status to narcotic agent; Z88.2 Allergy status to sulfonamides; Z97.2 Presence of dental prosthetic device (complete) (partial); Z82.49 Family history of ischemic heart disease and other diseases of the circulatory system; Z83.2 Family history of diseases of the blood and blood-forming organs and certain disorders involving the immune mechanism
CPT/HCPCS: 88305; 45378; 43239; J2001; J2704

== ENCOUNTER → 2019-12-06 | Outpatient (CLI) | payer OTHER ==
[2019-12-06 11:50] LABS: African American GFR (CKD) >90 (>60 ml/min/1.73 sqM); Basophils % (A) 1 %; Blood Urea Nitrogen 16 mg/dL (7-17); Eosinophils # (A) 0.2 k/uL (0-0.7); Eosinophils % (A) 3 %; HCT 45.5 % (34.0-46.0); HGB 14.2 gm/dL (11.4-16.0); Lymphocytes % (A) 28 %; MCH 28.2 pg (25.0-35.0); MCHC 31.2 g/dL (31.0-37.0); MCV 90.5 fL (80.0-100.0); Mean Platelet Volume 8.5; Monocytes # (A) 0.3 k/uL (0-1.0); Monocytes % (A) 4 %; Neutrophils # (A) 4.6 k/uL (1.3-7.7); Neutrophils % (A) 64 %; Non-African American GFR(CKD) >90 (>60 ml/min/1.73 sqM); Platelet Count 248 k/uL (150-450); Potassium 4.3 mmol/L (3.5-5.1); RBC 5.03 m/uL (3.80-5.40); RDW 13.1 % (11.5-15.5); WBC 7.1 k/uL (3.8-10.6)
== END | disposition home or self-care (01) ==
LOC: LABPAT 10:02
PROVIDERS: ATTEND Surgery
DX: Z01.812 Encounter for preprocedural laboratory examination (principal); K21.0 Gastro-esophageal reflux disease with esophagitis; F17.200 Nicotine dependence, unspecified, uncomplicated; D64.9 Anemia, unspecified
CPT/HCPCS: 36415; 82565; 84132; 84520; 85025

== ENCOUNTER 2019-12-07 08:35 | Observation (INO) | payer OTHER ==
[~2019-12-07 08:35] MED LIST changes: +DEXAMETHASONE SOD PHOSPHATE 10 MG/ML 1 ML VIAL IV ONE; +HEPARIN SODIUM,PORCINE 5,000 UNIT/ML 1 ML VIAL SQ ONE; +HYDROmorphone 0.5 MG/0.5 ML SYRINGE IVP PRN; -LACTATED RINGERS 1,000 ML IV SCH; +LIDOCAINE 1% (10MG/ML) FOR IV START INTRADERMA PRN; -LIDOCAINE 1% 20 ML VIAL (10MG/ML) FOR IV START INTRADERMA PRN; +MIDAZOLAM 2 MG/2 ML VIAL IV PRN; +ONDANSETRON 4 MG/2 ML VIAL IVP ONE
[2019-12-07] MEDS: LACTATED RINGERS 1,000 ML IV SCH ×2 (09:06→22:10)
[2019-12-07 09:07] LABS: Glucose,Whole Blood 75 mg/dL (75-99)
[2019-12-07] MEDS ORDERED: DEXTROSE 50% SYRINGE 50 ML IVP ONE (09:48)
[2019-12-07 10:05] LABS: Glucose,Whole Blood 150 mg/dL (75-99)
--- NOTE | 2019-12-07 10:13 | P.GSHP ---
History of Present Illness H&P Date: 12/07/19 Chief Complaint: GERD This is a 49-year-old female referred from [facility] Woo np. The patient has had long-standing problems with reflux esophagitis. The patient underwent recent EGD is found have evidence of esophagitis. Patient has been well informe d on the procedure of laparoscopic Ale fundoplication. The patient is aware the risk of the conversion to the open procedure, risk of injury to the stomach, liver and spleen. The patient is also a risk of recurrent GERD and dysphagia symptoms. The patient understands there is a postoperative diet of full liquids for 2 weeks after surgery. Past Medical History Past Medical History: Diabetes Mellitus, GERD/Reflux, Hyperlipidemia, Seizure Disorder, Thyroid Disorder Additional Past Medical History / Comment(s): endometritis, glaucoma. last seizure 2007 does not take meds now History of Any Multi-Drug Resistant Organisms: None Reported Past Surgical History: Bladder Surgery, Breast Surgery, Cholecystectomy Additional Past Surgical History / Comment(s): breast reduction, bladder suspension Additional Past Anesthesia/Blood Transfusion Reaction / Comment(s): "come out a little slower" Smoking Status: Never smoker - Past Family History Mother Family Medical History: Coronary Artery Disease (CAD), CVA/TIA, Hypertension Father Family Medical History: Cancer, Coronary Artery Disease (CAD), Myocardial Infarction ([place]) Additional Family Medical History / Comment(s): polycythemia. from massive heart attack Medications and Allergies Home Medications Medication Instructions Recorded Confirmed Type Insulin Aspart [NovoLOG Flexpen] See Protocol SQ AC-TID PRN 05/28/15 12/07/19 History Latanoprost 1 drop BOTH EYES HS 05/28/15 12/07/19 History Pregabalin [Lyrica] 75 mg PO HS 05/28/15 12/07/19 History Propranolol [Inderal] 40 mg PO HS 05/28/15 12/07/19 History DULoxetine HCL [Cymbalta] 30 mg PO HS 03/19/19 12/07/19 History Insulin Degludec [Tresiba 100 units SQ HS 03/19/19 12/07/19 History Flextouch U-200] metFORMIN HCL ER [Glucophage Xr] 500 mg PO HS 03/19/19 12/07/19 History Magnesium 200 mg PO HS 07/03/19 12/07/19 History diphenhydrAMINE HCL [Benadryl] 25 mg PO HS 07/03/19 12/07/19 History EPINEPHrine (Auto Inject) [Epipen] 0.3 mg IM ONCE PRN 11/05/19 12/07/19 History Levothyroxine Sodium [Synthroid] 50 mcg PO HS 11/05/19 12/07/19 History Timolol 0.25% Ophth Soln [Timoptic 1 drops BOTH EYES DAILY 11/08/19 12/07/19 History 0.25% Ophth Soln] Soy Isofla/Blk Cohosh/Mag Bark 155 mg PO HS 12/04/19 12/07/19 History [Estroven 155 mg Capsule] Allergies Allergy/AdvReac Type Severity Reaction Status Date / Time ciprofloxacin [From Cipro] Allergy Itching Verified 12/07/19 08:53 ciprofloxacin HCl Allergy Itching Verified 12/07/19 08:53 [From Cipro] erythromycin base Allergy Swelling Verified 12/07/19 08:53 naproxen Allergy Anaphylaxis Verified 12/07/19 08:53 Penicillins Allergy CHEST PAIN Verified 12/07/19 08:53 AND RASH codeine AdvReac Nausea & Verified 12/07/19 08:53 Vomiting morphine AdvReac HARD TIME Verified 12/07/19 08:53 WAKING UP AND B/P DROPS VERY LOW sulfamethoxazole AdvReac Nausea & Verified 12/07/19 08:53 [From Bactrim] Vomiting tramadol HCl [From Ultram] AdvReac Nausea & Verified 12/07/19 08:53 Vomiting trimethoprim [From Bactrim] AdvReac Nausea & Verified 12/07/19 08:53 Vomiting Surgical - Exam Vital Signs Temp Pulse Resp BP Pulse Ox 97.4 F L 67 16 133/80 93 L 12/07/19 08:56 12/07/19 08:56 12/07/19 08:56 12/07/19 08:56 12/07/19 08:56 - General well developed, well nourished, no distress - Eyes PERRL - ENT normal pinna - Neck no masses - Respiratory normal expansion - Cardiovascular Rhythm: regular - Abdomen Abdomen: soft, non tender Results - Labs Abnormal Lab Results - Last 24 Hours (Table) 12/07/19 Range/Units 10:04 POC Glucose (mg/dL) 150 H (75-99) mg/dL Assessment and Plan Assessment: GERD. We'll perform laparoscopic Ale fundoplication.
[2019-12-07] MEDS ORDERED: NEOSTIGMINE 1 MG/ML 10 ML VIAL ONE (10:41)
[2019-12-07] MEDS ORDERED: SUCCINYLCHOLINE CHLORIDE 100 MG/5 ML SYR IV ONE (10:41)
[2019-12-07] MEDS ORDERED: KETOROLAC 30 MG/ML 1 ML VIAL ONE (10:41)
[2019-12-07] MEDS ORDERED: ePHEDrine SULFATE/0.9% NACL/PF 50 MG/5 ML SYRINGE IV ONE (10:41)
[2019-12-07] MEDS ORDERED: ROCURONIUM BROMIDE 10 MG/ML 5 ML VIAL IV ONE (10:41)
[2019-12-07] MEDS ORDERED: fentaNYL (PF) 50 MCG/ML 2 ML AMP ONE (10:41)
[2019-12-07] MEDS ORDERED: PROPOFOL 10 MG/ML 20 ML VIAL IV ONE (10:41)
[2019-12-07] MEDS ORDERED: GLYCOPYRROLATE 0.2 MG/ML 2 ML VIAL ONE (10:41)
[2019-12-07] MEDS ORDERED: MIDAZOLAM 2 MG/2 ML VIAL ONE (10:41)
[2019-12-07] MEDS ORDERED: LIDOCAINE 1% INJ 10MG/ML (20 ML MDV) ONE (10:41)
[2019-12-07] MEDS ORDERED: LACTATED RINGERS 1,000 ML IV ONE (10:56)
[2019-12-07] MEDS ORDERED: LIDOCAINE 1%-EPI 1:100,000 20 ML VIAL SQ ONE (11:11)
[2019-12-07] MEDS ORDERED: ONDANSETRON 4 MG/2 ML VIAL IVP PRN (11:49)
--- NOTE | 2019-12-07 11:49 | P.OP ---
Date of Procedure: 12/07/19 Preoperative Diagnosis: gERD Postoperative Diagnosis: Gerd Procedure(s) Performed: Laparoscopic Ale fundal plication Anesthesia: THALIA Surgeon: Tu Pena Estimated Blood Loss (ml): 5 Pathology: none sent Condition: stable Disposition: PACU Description of Procedure: HThe patient was placed on the operating table in the supine position. The patient received general anesthesia. And was placed in dorsal lithotomy position. The patient was prepped and draped in the usual sterile fashion. The skin incision sites were anesthetized with 1% local Xylocaine. The skin was incised in the left periumbilical area and then using a blade less 5 mm trocar under direct visualization panel cavity was entered. After adequate insufflation the laparoscope was then placed into the peritoneal cavity. Next a 5 mm trochars placed in the right epigastric position. Another 5 millimeter trocar the right lateral position. Another 5 millimeter trocar in the left lateral position a 5 mm trocar is placed in the left epigastric position. And then the initial 5 mm trocar was exchanged for a 10 mm trocar. The left lateral lobe liver was retracted. The hernia was seen. The crural defect was then dissected using the Harmonic scissors device. A 360 crural dissection was performed the esophagus stomach was reduced back into the peritoneal Cavity. The crural defect was then closed using 2-0 Ethibond suture. Next the fundus of the stomach was mobilized using the [place] scissors device. and then a 58- [place] bougie dilator was placed oropharynx passed into the esophagus and stomach the fundal plication wrap was then performed by grasping the fundus pos teriorly and bringing it around the esophagus and stomach fundoplication was then performed using 2-0 Ethibond suture. Care was taken that the fundal location rested over top of the intra-abdominal esophagus. There was no injury seen to the stomach or esophagus. The dilator was then withdrawn. The abdomen was irrigated there is no bleeding seen. The trochars were then withdrawn and then skin incision sites were closed using 3-0 Monocryl suture Steri-Strips are applied. Patient thought procedure well and sent to recovery room in stable condition.
[2019-12-07 13:16] LABS: Glucose,Whole Blood 106 mg/dL (75-99)
--- NOTE | 2019-12-07 14:39 | FL ---
EXAMINATION TYPE: FL esophagus cervic/pharynx DATE OF EXAM: 12/07/2019 LIMITED UGI-ESOPHAGRAM: CLINICAL HISTORY: Post Kareem fundoplication TECHNIQUE: Limited esophagram is performed utilizing Isovue 370. A total of 0.33 minutes of fluorosc opic time was utilized during procedure. FINDINGS: The patient swallowed contrast without difficulty or delay. Esophageal peristalsis and mo tility are within normal limits. There is good flow of contrast to the gastroesophageal junction. The re is some mild hesitancy at the postsurgical site. No obstruction is evident. Note is made of some mild free air present during the examination which can be postoperative. IMPRESSION: 1. Normal postop Kareem fundoplication. No extravasation or obstruction of contrast is evident.
[2019-12-07] MEDS: D5-0.45% NACL WITH KCL 20MEQ/L 1,000 ML IV SCH ×2 (14:52→22:01)
[2019-12-07] MEDS: HYDROmorphone 1 MG/ML 1 ML SYRINGE IVP PRN ×2 (16:25→22:09)
[2019-12-07 17:20] LABS: Glucose,Whole Blood 172 mg/dL (75-99)
[2019-12-07] MEDS: INSULIN ASPART (NovoLOG) 100 UNIT/ML VIAL SQ SCH ×3 (17:48→21:35)
[2019-12-07] MEDS ORDERED: PROPRANOLOL 40 MG TAB PO SCH (21:00)
[2019-12-07] MEDS ORDERED: PREGABALIN 75 MG CAP PO SCH (21:00)
[2019-12-07] MEDS ORDERED: LATANOPROST 0.005% OPHTH DROPS 2.5 ML BTL BOTH EYES SCH (21:00)
[2019-12-07] MEDS ORDERED: LEVOTHYROXINE 50 MCG TAB PO SCH (21:00)
[2019-12-07] MEDS ORDERED: MAGNESIUM OXIDE 400 MG TAB PO SCH (21:00)
[2019-12-07] MEDS ORDERED: DULoxetine HCL 30 MG CAPSULE.DR PO SCH (21:00)
[2019-12-07 21:38] LABS: Glucose,Whole Blood 239 mg/dL (75-99)
[2019-12-08 02:27] LABS: Glucose,Whole Blood 164 mg/dL (75-99)
[2019-12-08] MEDS: HYDROmorphone 1 MG/ML 1 ML SYRINGE IVP PRN (03:50)
[2019-12-08] MEDS: LACTATED RINGERS 1,000 ML IV SCH ×2 (06:57→06:58)
[2019-12-08] MEDS: D5-0.45% NACL WITH KCL 20MEQ/L 1,000 ML IV SCH (06:58)
[2019-12-08 07:35] VITALS: RESP 15
[2019-12-08] MEDS: INSULIN ASPART (NovoLOG) 100 UNIT/ML VIAL SQ SCH (07:35)
[2019-12-08 07:39] LABS: Glucose,Whole Blood 126 mg/dL (75-99)
[2019-12-08] MEDS ORDERED: TIMOLOL 0.25% OPHTH DROPS 5 ML BTL BOTH EYES SCH (09:00)
[2019-12-08] MEDS ORDERED: ENOXAPARIN 40 MG/0.4 ML SYRINGE SQ SCH (09:00)
[2019-12-08 10:32] VITALS: BMI 27.2
[2019-12-08] MEDS ORDERED: ACETAMINOPHEN TAB 500 MG TAB PO PRN (11:54)
--- NOTE | 2019-12-08 13:50 | P.PN ---
Subjective Progress Note Date: 12/08/19 CHIEF COMPLAINT: Status post Ale fundoplication HISTORY OF PRESENT ILLNESS: The patient is a 49-year-old female postop day 1 status post Ale fundoplasty, 12/07/2019. She tolerated her diet and had seen the dietitian. She feels well. ROS: No reports of nausea and vomiting. No fevers or chills. No new chest pain. No productive sputum PHYSICAL EXAM: VITAL SIGNS: Reviewed CONSTITUTIONAL: Well developed and in no acute distress. EYES: Conjuctivae without sclera icterus. Extraocular movements grossly intact. HEAD, EARS, NOSE, THROAT: Moist buccal mucosa. Head is atraumatic, normocephalic. Hears conversational speech. No nasal drainage. Edentulous. NECK: Supple. No thyroidomegaly. RESPIRATORY: Non-labored respirations and equal bilateral excursions. CARDIOVASCULAR: Palpable 2+ radial pulses. Regular rate. Regular rhythm. ABDOMEN: Incisions clean dry and intact. Soft. No peritonitis. MUSCULOSKELETAL: No gross deformity of the lower extremities noted. No clubbing. No cyanosis. SKIN: Good skin turgor. Well perfused. NEUROLOGIC: Cranial nerves I through XII grossly intact. No focal or lateralizing signs. PSYCH: Appropriate affect. Alert and oriented to person, place and time. CLINICAL LABS: Blood sugar glucose 106 at 239. IMAGES: Esophagram reviewed independently demonstrating no leaks. RADIOLOGY: Esophagram report reviewed demonstrating mild hesitancy along GE junction. ASSESSMENT: 1. Gastroesophageal reflux disease 2. Status post fundoplasty PLAN: 1. Recommend Ale diet 2. Stable for discharge 3. Education with dietitian performed. Objective - Vital Signs Vital signs: Vital Signs Temp 97.6 F 12/08/19 07:33 Pulse 92 12/08/19 07:33 Resp 15 12/08/19 07:33 BP 119/79 12/08/19 07:33 Pulse Ox 92 L 12/08/19 07:33 Intake & Output 12/07/19 12/08/19 12/08/19 18:59 06:59 18:59 Intake Total 1750 Output Total 5 Balance 1745 Weight 79 kg 79 kg Intake: IV 1750 Output: Estimated Blood Loss 5 Other: # Voids 1 - Labs Labs: Abnormal Lab Results - Last 24 Hours (Table) 12/07/19 12/07/19 12/07/19 Range/Units 13:15 17:18 21:24 POC Glucose (mg/dL) 106 H 172 H 239 H (75-99) mg/dL 12/08/19 12/08/19 Range/Units 02:21 07:27 POC Glucose (mg/dL) 164 H 126 H (75-99) mg/dL Assessment and Plan (1) Gastroesophageal reflux disease Current Visit: Yes Status: Acute Code(s): K21.9 - GASTRO-ESOPHAGEAL REFLUX DISEASE WITHOUT ESOPHAGITIS SNOMED Code(s): 792751142 (2) Status post Ale fundoplication Current Visit: Yes Status: Acute Code(s): Z98.890 - OTHER SPECIFIED POSTPROCEDURAL STATES SNOMED Code(s): 115865355 (3) Diabetes type 2, controlled Current Visit: Yes Status: Acute Code(s): E11.9 - TYPE 2 DIABETES MELLITUS WITHOUT COMPLICATIONS SNOMED Code(s): 40831629
--- NOTE | 2019-12-08 13:51 | P.DS ---
Providers Date of admission: 12/08/19 00:42 Expected date of discharge: 12/08/19 Attending physician: Tu Pena Consults: 12/07/19 11:49 Consult Physician Routine Consulting Provider: Mikey Lindsey Consult Reason/Comments: Management Do you want consulting provider notified?: Yes Primary care physician: Nataly Jones - Discharge Diagnosis(es) (1) Gastroesophageal reflux disease Current Visit: Yes Status: Acute (2) Status post Ale fundoplication Current Visit: Yes Status: Acute (3) Diabetes type 2, controlled Current Visit: Yes Status: Acute Hospital Course: CHIEF COMPLAINT: Status post Ale fundoplication HISTORY OF PRESENT ILLNESS: The patient is a 49-year-old female postop day 1 status post Ale fundoplasty, 12/07/2019. She tolerated her diet and had seen the dietitian. She feels well. ROS: No reports of nausea and vomiting. No fevers or chills. No new chest pain. No productive sputum PHYSICAL EXAM: VITAL SIGNS: Reviewed CONSTITUTIONAL: Well developed and in no acute distress. EYES: Conjuctivae without sclera icterus. Extraocular movements grossly intact. HEAD, EARS, NOSE, THROAT: Moist buccal mucosa. Head is atraumatic, normocephalic. Hears conversational speech. No nasal drainage. Edentulous. NECK: Supple. No thyroidomegaly. RESPIRATORY: Non-labored respirations and equal bilateral excursions. CARDIOVASCULAR: Palpable 2+ radial pulses. Regular rate. Regular rhythm. ABDOMEN: Incisions clean dry and intact. Soft. No peritonitis. MUSCULOSKELETAL: No gross deformity of the lower extremities noted. No clubbing. No cyanosis. SKIN: Good skin turgor. Well perfused. NEUROLOGIC: Cranial nerves I through XII grossly intact. No focal or lateralizing signs. PSYCH: Appropriate affect. Alert and oriented to person, place and time. CLINICAL LABS: Blood sugar glucose 106 at 239. IMAGES: Esophagram reviewed independently demonstrating no leaks. RADIOLOGY: Esophagram report reviewed demonstrating mild hesitancy along GE junction. ASSESSMENT: 1. Gastroesophageal reflux disease 2. Status post fundoplasty PLAN: 1. Recommend Ale diet 2. Stable for discharge 3. Education with dietitian performed. Patient Condition at Discharge: Stable Plan - Discharge Summary Discharge Rx Participant: Yes New Discharge Prescriptions: New Hydrocodone/Acetaminophen [[place] 5-325] 1 tab PO Q6HR PRN #10 tab PRN Reason: Pain No Action Propranolol [Inderal] 40 mg PO HS Pregabalin [Lyrica] 75 mg PO HS Latanoprost 1 drop BOTH EYES HS Insulin Aspart [NovoLOG Flexpen] See Protocol SQ AC-TID PRN PRN Reason: Blood Sugar - High metFORMIN HCL ER [Glucophage Xr] 500 mg PO HS Insulin Degludec [Tresiba Flextouch U-200] 100 units SQ HS DULoxetine HCL [Cymbalta] 30 mg PO HS diphenhydrAMINE HCL [Benadryl] 25 mg PO HS Magnesium 200 mg PO HS Levothyroxine Sodium [Synthroid] 50 mcg PO HS EPINEPHrine (Auto Inject) [Epipen] 0.3 mg IM ONCE PRN PRN Reason: Anaphylaxis Timolol 0.25% Ophth Soln [Timoptic 0.25% Ophth Soln] 1 drops BOTH EYES DAILY Soy Isofla/Blk Cohosh/Mag Bark [Estroven 155 mg Capsule] 155 mg PO HS Discharge Medication List Insulin Aspart [NovoLOG Flexpen] See Protocol SQ AC-TID PRN 05/28/15 [History] Latanoprost 1 drop BOTH EYES HS 05/28/15 [History] Pregabalin [Lyrica] 75 mg PO HS 05/28/15 [History] Propranolol [Inderal] 40 mg PO HS 05/28/15 [History] DULoxetine HCL [Cymbalta] 30 mg PO HS 03/19/19 [History] Insulin Degludec [Tresiba Flextouch U-200] 100 units SQ HS 03/19/19 [History] metFORMIN HCL ER [Glucophage Xr] 500 mg PO HS 03/19/19 [History] Magnesium 200 mg PO HS 07/03/19 [History] diphenhydrAMINE HCL [Benadryl] 25 mg PO HS 07/03/19 [History] EPINEPHrine (Auto Inject) [Epipen] 0.3 mg IM ONCE PRN 11/05/19 [History] Levothyroxine Sodium [Synthroid] 50 mcg PO HS 11/05/19 [History] Timolol 0.25% Ophth Soln [Timoptic 0.25% Ophth Soln] 1 drops BOTH EYES DAILY 11/08/19 [History] Soy Isofla/Blk Cohosh/Mag Bark [Estroven 155 mg Capsule] 155 mg PO HS 12/04/19 [History] Hydrocodone/Acetaminophen [[place] 5-325] 1 tab PO Q6HR PRN #10 tab 12/07/19 [Rx] Follow up Appointment(s)/Referral(s): Tu Pena MD [STAFF PHYSICIAN] - 1 Week Patient Instructions/Handouts: *Surgery [facility] - ([facility]) Luke Ale Fundiplication Post-Op Instructions Discharge Disposition: HOME SELF-CARE
[2019-12-08 18:11] VITALS: BP 126/74; PULSE 62; TEMP 97.8
--- NOTE | 2019-12-08 21:49 | CONS ---
CONSULTATION DATE OF SERVICE: 12/08/2019 REASON FOR CONSULTATION: Advice regarding diabetes and other medical issues requested by Dr. Pena. HISTORY OF PRESENT ILLNESS: This 49-year-old woman with a past medical history of multiple medical problems including history of diabetes, GERD, hyperlipidemia, history of hypothyroidism, seizure disorder, endometriosis, glaucoma, being followed by Dr. Nataly Jones in the outpatient setting underwent laparoscopic Ale fundoplication by Dr. Pena for severe GERD. There is no history of chest pain. No palpitations. No headache, loss consciousness, nausea, diarrhea, fever, rigors or chills at this time. PAST MEDICAL HISTORY: History of diabetes type 2, history of GERD, hyperlipidemia, seizure disorder, hypothyroidism, endometritis, glaucoma. MEDICATIONS: Home medications are: 1. Benadryl 25 mg q.h.s. 2. Timoptic 1 drop 1 drop daily. 4. NovoLog FlexPen t.i.d. p.r.n. 5. EpiPen 0.3 p.r.n. 6. Glucophage XR 500 mg q.h.s.. 7. Inderal 40 mg q.h.s. 8. Lyrica 75 mg p.o. q.h.s. 9. Magnesium 200 mg q.h.s. 10.Synthroid 50 mcg p.o. q.h.s. 11.Latanoprost 1 drop both eyes q.h.s. 12.Tresiba 100 units q.h.s. 13.Cymbalta 30 mg q.h.s. 14.[place] 1 tablet q.6 p.r.n. ALLERGIES: CIPRO, ERYTHROMYCIN BASE, NAPROSYN, PENICILLIN, CODEINE, MORPHINE, BACTRIM, ULTRAM. FAMILY HISTORY: History of CAD, CVA, hypertension, polycythemia, massive heart attack in the family. SOCIAL HISTORY: No history of smoking. No history of alcohol. REVIEW OF SYSTEMS: ENT: No diminished vision. No diminished hearing. CARDIOVASCULAR: No angina or palpitations. RESPIRATORY: As mentioned earlier. GASTROINTESTINAL: As mentioned earlier. no dysuria. Nervous system: No numbness or weakness. ALLERGY/IMMUNOLOGY: No asthma or hayfever. MUSCULOSKELETAL as mentioned earlier. HEMATOLOGY: No history of anemia. ENDOCRINE: History of diabetes and hypothyroidism. CONSTITUTIONAL: As mentioned earlier. DERMATOLOGY: Negative. RHEUMATOLOGY negative. PSYCHIATRY as mentioned earlier. PHYSICAL EXAMINATION: Alert and oriented times three. Pulse is 65. Blood pressure 103/64, respiration 14, temperature 97.4, pulse ox 94% on 0.5 L nasal cannula. HEENT: Conjunctivae normal. Oral mucosa moist. NECK is no jugular venous distention. No carotid bruit. No lymph node enlargement. Cardiovascular systems: S1, S2 muffled. Respiration: Breath sounds diminished in the bases. Scattered rhonchi and crackles. ABDOMEN: Soft, status post surgery. LEGS: No edema. No swelling. Nervous system: Higher functions as mentioned earlier. Moves all 4 limbs. No focal motor or sensory deficits. LYMPHATICS: No lymph nodes palpable in the neck, axillae or groin. SKIN: No ulcer, rash or bleeding. JOINTS: No active deforming arthropathy. LABS: At this time shows glucose 161, 126. Other labs are including recent hematology is normal. Chemistry is also unremarkable. ASSESSMENT: 1. Status post laparoscopic Ale fundoplication for gastroesophageal reflux disease. 2. Diabetes mellitus type 2. 3. Hyperlipidemia. 4. Seizure disorder. 5. Hypothyroidism. 6. History endometritis. 7. History of glaucoma. 8. History of seizure disorder. 9. History of bladder surgery. 10.History of cholecystectomy. 11.History of depression. RECOMMENDATIONS AND DISCUSSION: This 49-year-old woman who presented with multiple medical issues, at this time I recommend to continue the current medications, management and symptomatic treatment. Continue the home medications and monitor blood sugars closely. DVT prophylaxis. Incentive spirometry. The patient may be asked to follow up with Dr. Nataly Jones after discharge. Thank you Dr. Pena for letting us participate in the care of this patient. MMODL / IJN: [id number] / [facility] MEDICAL CENTERFernando
== END 2019-12-08 14:10 | disposition home or self-care (01) ==
LOC: OR 08:35 → 4FBP 13:14 → OR 12-08 00:42 → 4FBP 12-08 00:42
PROVIDERS: ADMIT Surgery; ATTEND Surgery
DX: K21.0 Gastro-esophageal reflux disease with esophagitis (principal); E11.9 Type 2 diabetes mellitus without complications; E78.5 Hyperlipidemia, unspecified; G40.909 Epilepsy, unspecified, not intractable, without status epilepticus; E03.9 Hypothyroidism, unspecified; H40.9 Unspecified glaucoma; Z88.0 Allergy status to penicillin; Z88.1 Allergy status to other antibiotic agents; Z88.2 Allergy status to sulfonamides; Z88.5 Allergy status to narcotic agent; Z79.4 Long term (current) use of insulin; Z79.890 Hormone replacement therapy; Z79.899 Other long term (current) drug therapy; Z90.49 Acquired absence of other specified parts of digestive tract; Z82.49 Family history of ischemic heart disease and other diseases of the circulatory system; Z82.3 Family history of stroke; Z83.2 Family history of diseases of the blood and blood-forming organs and certain disorders involving the immune mechanism
CPT/HCPCS: 74210; 43280; G0378; J2250; J1644; J1100; J2710; J0690; J2405; J2001; J1650; J3010; J1885; J1170 ×3; J0330; J2704; Q9967

== ENCOUNTER → 2020-04-23 | Outpatient (CLI) | payer OTHER ==
--- NOTE | 2020-04-23 21:58 | CT ---
EXAMINATION TYPE: CT abdomen pelvis wo con DATE OF EXAM: 04/23/2020 HISTORY: flank pain, hematuria CT DLP: 448.10 mGycm. Automated Exposure Control for Dose Reduction was Utilized. TECHNIQUE: CT scan of the abdomen and pelvis is performed without oral or IV contrast. COMPARISON: CT abdomen and pelvis March 19, 2019 FINDINGS: Within the limitations of a non-contrast study, the following observations are made. LUNG BASES: No significant abnormality is appreciated. LIVER/GB: Cholecystectomy clips are redemonstrated. PANCREAS: No significant abnormality is seen. SPLEEN: No significant abnormality is seen. ADRENALS: No significant abnormality is seen. KIDNEYS: Stable 4 to 5 mm nonobstructing calculus left kidney posteriorly upper to midpole level axia l image 58. No new renal stones or hydronephrosis seen bilaterally. BOWEL: Suboptimal evaluation bowel without enteric contrast. No suspicious small or large bowel dilat ation. GENITAL ORGANS: Uterus surgically absent or markedly atrophic. Scattered bilateral pelvic phleboliths redemonstrated. LYMPH NODES: No greater than 1cm abdominal or pelvic lymph nodes are appreciated. OSSEOUS STRUCTURES: Facet arthropathy lower lumbar spine redemonstrated. OTHER: No significant additional abnormality is seen. IMPRESSION: Stable 4 to 5 mm nonobstructing left renal calculus. No new Renal stones or hydronephrosi s noted bilaterally.
== END | disposition home or self-care (01) ==
LOC: RADCTMAIN 18:31
PROVIDERS: ATTEND Nurse Practitioner Family
DX: N20.0 Calculus of kidney (principal)
CPT/HCPCS: 74176

== ENCOUNTER 2020-07-11 16:37 | Emergency (ER) | payer OTHER ==
[2020-07-11 16:41] VITALS: TEMP 98
--- NOTE | 2020-07-11 17:24 | ED ---
Upper Extremity HPI - General Chief Complaint: Extremity Injury, Upper Stated Complaint: fall/arm injury Time Seen by Provider: 07/11/20 16:42 Source: patient, RN notes reviewed Mode of arrival: ambulatory Limitations: no limitations - History of Present Illness Initial Comments: 49-year-old female presented to the emergency Department with chief complaint of a fall right wrist fracture. Patient was seen in urgent care sent here for evaluation. Patient states that she has some tingling of her thumb which resolved. Patient denies any head injury. Patient denies any current paresthesias patient offers no elbow pain. - Related Data Home Medications Medication Instructions Recorded Confirmed Insulin Aspart [NovoLOG Flexpen] See Protocol SQ AC-TID PRN 05/28/15 12/07/19 Latanoprost 1 drop BOTH EYES HS 05/28/15 12/07/19 Pregabalin [Lyrica] 75 mg PO HS 05/28/15 12/07/19 Propranolol [Inderal] 40 mg PO HS 05/28/15 12/07/19 DULoxetine HCL [Cymbalta] 30 mg PO HS 03/19/19 12/07/19 Insulin Degludec [Tresiba 100 units SQ HS 03/19/19 12/07/19 Flextouch U-200] metFORMIN HCL ER [Glucophage Xr] 500 mg PO HS 03/19/19 12/07/19 Magnesium 200 mg PO HS 07/03/19 12/07/19 diphenhydrAMINE HCL [Benadryl] 25 mg PO HS 07/03/19 12/07/19 EPINEPHrine (Auto Inject) [Epipen] 0.3 mg IM ONCE PRN 11/05/19 12/07/19 Levothyroxine Sodium [Synthroid] 50 mcg PO HS 11/05/19 12/07/19 Timolol 0.25% Ophth Soln [Timoptic 1 drops BOTH EYES DAILY 11/08/19 12/07/19 0.25% Ophth Soln] Soy Isofla/Blk Cohosh/Mag Bark 155 mg PO HS 12/04/19 12/07/19 [Estroven 155 mg Capsule] Previous Rx's Medication Instructions Recorded Hydrocodone/Acetaminophen [[place] 1 tab PO Q6HR PRN #10 tab 12/07/19 5-325] Allergies Allergy/AdvReac Type Severity Reaction Status Date / Time ciprofloxacin [From Cipro] Allergy Itching Verified 07/11/20 16:41 ciprofloxacin HCl Allergy Itching Verified 07/11/20 16:41 [From Cipro] erythromycin base Allergy Swelling Verified 07/11/20 16:41 naproxen Allergy Anaphylaxis Verified 07/11/20 16:41 Penicillins Allergy CHEST PAIN Verified 07/11/20 16:41 AND RASH codeine AdvReac Nausea & Verified 07/11/20 16:41 Vomiting morphine AdvReac HARD TIME Verified 07/11/20 16:41 WAKING UP AND B/P DROPS VERY LOW sulfamethoxazole AdvReac Nausea & Verified 07/11/20 16:41 [From Bactrim] Vomiting tramadol HCl [From Ultram] AdvReac Nausea & Verified 07/11/20 16:41 Vomiting trimethoprim [From Bactrim] AdvReac Nausea & Verified 07/11/20 16:41 Vomiting Review of Systems ROS Statement: Those systems with pertinent positive or pertinent negative responses have been documented in the HPI. ROS Other: All systems not noted in ROS Statement are negative. Past Medical History Past Medical History: Diabetes Mellitus, GERD/Reflux, Hyperlipidemia, Seizure Disorder, Thyroid Disorder Additional Past Medical History / Comment(s): endometritis, glaucoma. last seizure 2007 does not take meds now History of Any Multi-Drug Resistant Organisms: None Reported Past Surgical History: Bladder Surgery, Breast Surgery, Cholecystectomy Additional Past Surgical History / Comment(s): breast reduction, bladder suspension Additional Past Anesthesia/Blood Transfusion Reaction / Comment(s): "come out a little slower" Past Psychological History: Depression Smoking Status: Never smoker Past Alcohol Use History: Occasional Past Drug Use History: None Reported - Past Family History Mother Family Medical History: Coronary Artery Disease (CAD), CVA/TIA, Hypertension Father Family Medical History: Cancer, Coronary Artery Disease (CAD), Myocardial Infarction ([place]) Additional Family Medical History / Comment(s): polycythemia. from massive heart attack General Exam Limitations: no limitations General appearance: alert, in no apparent distress Head exam: Present: atraumatic, normocephalic, normal inspection Respiratory exam: Present: normal lung sounds bilaterally. Absent: respiratory distress, wheezes, rales, rhonchi, stridor Cardiovascular Exam: Present: regular rate, normal rhythm, normal heart sounds. Absent: systolic murmur, diastolic murmur, rubs, gallop, clicks Extremities exam: Present: other (Splint was removed from the right wrist, there is no significant deformity patient's Reflux 2 seconds. She has equal sensation in all digits. There is no ecchymosis. No proximal forearm tenderness) Course Vital Signs 07/11/20 16:38 Temperature 98.0 F Pulse Rate 68 Respiratory 18 Rate Blood Pressure 119/75 O2 Sat by Pulse 99 Oximetry - Reevaluation(s) Reevaluation #1: 07/11/20 17:22 Patient was offered pain medication patient declined. Patient states she has multiple ALLERGIES. Procedures - Orthopedic Splinting/Casting Injury #1 Side: right Upper Extremity Injury Location: short arm, wrist Upper Extremity Immobilizer: volar splint, synthetic pre-padded splint Medical Decision Making - Medical Decision Making Splint was applied x-ray was reviewed there is distal radius fracture with mild volar displacement she has neurovascular intact was splinted and was splinted in a volar splint patient will follow-up with orthopedics. Disposition Clinical Impression: Distal radius fracture, right Disposition: HOME SELF-CARE Condition: Stable Instructions (If sedation given, give patient instructions): Arm Fracture in Adults (ED) Additional Instructions: Please return to the Emergency Department if symptoms worsen or any other concerns. Is patient prescribed a controlled substance at d/c from ED?: No Referrals: Nataly Jones DO [Primary Care Provider] - 1-2 days Josh Rodriguez DO [Doctor of Osteopathic Medicine] - 1-2 days Time of Disposition: 17:23
[2020-07-11 18:56] VITALS: BP 117/78; PULSE 64; RESP 16
== END 2020-07-11 17:45 | disposition home or self-care (01) ==
LOC: EC 16:37
DX: S52.501A Unspecified fracture of the lower end of right radius, initial encounter for closed fracture (principal); F32.9 Major depressive disorder, single episode, unspecified; E11.9 Type 2 diabetes mellitus without complications; K21.9 Gastro-esophageal reflux disease without esophagitis; E78.5 Hyperlipidemia, unspecified; E07.9 Disorder of thyroid, unspecified; G40.909 Epilepsy, unspecified, not intractable, without status epilepticus; Z79.4 Long term (current) use of insulin; Z79.890 Hormone replacement therapy; Z79.899 Other long term (current) drug therapy; Z88.0 Allergy status to penicillin; Z88.1 Allergy status to other antibiotic agents; Z88.2 Allergy status to sulfonamides; Z88.5 Allergy status to narcotic agent; W18.30XA Fall on same level, unspecified, initial encounter; Y92.009 Unspecified place in unspecified non-institutional (private) residence as the place of occurrence of the external cause
CPT/HCPCS: 29125; 99283

== ENCOUNTER → 2020-07-23 | Outpatient (CLI) | payer OTHER ==
[~2020-07-23] MED LIST changes: -DEXAMETHASONE SOD PHOSPHATE 10 MG/ML 1 ML VIAL IV ONE; -HEPARIN SODIUM,PORCINE 5,000 UNIT/ML 1 ML VIAL SQ ONE; -HYDROmorphone 0.5 MG/0.5 ML SYRINGE IVP PRN; -LIDOCAINE 1% (10MG/ML) FOR IV START INTRADERMA PRN; -MIDAZOLAM 2 MG/2 ML VIAL IV PRN; -ONDANSETRON 4 MG/2 ML VIAL IVP ONE; +REGADENOSON 0.4 MG/5 ML SYRINGE IV ONE
--- NOTE | 2020-07-23 13:36 | NM ---
EXAMINATION TYPE: NM stress lexiscan cardiolite DATE OF EXAM: 07/23/2020 COMPARISON: Prior study February 23, 2013 HISTORY: History of coronary artery disease and abnormal EKG. History of diabetes and hypercholestero lemia. TECHNIQUE: After the intravenous administration of 9 mCi Tc 99m Sestamibi - Cardiolite resting SPECT images acquired 45 minutes post injection. The patient received 0.4mg Lexiscan, 26.2 mCi Tc 99m Sestamibi - Stress images obtained [address] injection FINDINGS: Review of stress and rest SPECT images demonstrates diminished radiotracer uptake involving anterior left ventricular wall short axis and vertical long axis stress images versus rest images. Acute ische sharon is level cannot be excluded. Gated analysis shows normal overall left ventricular ejection fracti on of 59 %. IMPRESSION: Possible acute ischemia involving the anterior left ventricular wall. Need to further pro ceed by direct catheter angiogram should be based on clinical and EKG correlation. A Yellow level critical message alert has been initiated for Nataly Jones DO via the [employer] Critical Results System on 07/23/2020 1:34 PM. This message alert has been sent to Nataly [facility] DO fabian via the preferences provided by the clinician for the receipt of Radiology Critical Findings . Message ID [id number].
--- NOTE | 2020-07-23 13:54 | P.STRESS ---
- Stress Test Note Stress Test Results/Findings: Exam Performed: NM stress lexiscan cardiolite Exam Date: 07/23/20 Reason for Exam: CAD, ABN ECG Height: 5 ft 7 in Weight: 75 kg Protocol: LEXISCAN CARDIOLITE Stage: NA Duration of Exercise: NA Resting Heart Rate: 71 Resting Blood Pressure: 117/92 Maximum Achieved Heart Rate: 98 Maximum Achieved Blood Pressure: 117/92 85% PMHR: 144 100% PMHR: 169 METS: NA Technologist Comment: Stress Test Results/Findings: At baseline EKG showed normal sinus rhythm, normal axis, nonspecific T waves in V1 and V2. Patient recieved IV infusion of Lexiscan 0.4mg and at peak infusion EKG showed no significant change from baseline. Conclusions: 1. Normal EKG response to Lexiscan infusion 2. Nuclear imaging to be reported separately.
== END | disposition home or self-care (01) ==
LOC: RADNMMAIN 08:32
PROVIDERS: ATTEND Family Medicine
DX: I25.10 Atherosclerotic heart disease of native coronary artery without angina pectoris (principal)
CPT/HCPCS: 93017; 78452; A9500; J2785

== ENCOUNTER → 2020-08-15 | Outpatient (CLI) | payer OTHER ==
[2020-08-15 09:53] LABS: HCT 47.5 % (34.0-46.0); HGB 15.8 gm/dL (11.4-16.0); MCH 29.8 pg (25.0-35.0); MCHC 33.2 g/dL (31.0-37.0); MCV 89.8 fL (80.0-100.0); Mean Platelet Volume 8.3; Platelet Count 260 k/uL (150-450); RBC 5.29 m/uL (3.80-5.40); RDW 12.7 % (11.5-15.5); WBC 7.7 k/uL (3.8-10.6)
[2020-08-15 10:06] LABS: African American GFR (CKD) >90 (>60 ml/min/1.73 sqM); Anion Gap 4 mmol/L; Blood Urea Nitrogen 12 mg/dL (7-17); Carbon Dioxide 30 mmol/L (22-30); Chloride 105 mmol/L (98-107); Non-African American GFR(CKD) >90 (>60 ml/min/1.73 sqM); Potassium 4.7 mmol/L (3.5-5.1); Sodium 139 mmol/L (137-145)
== END | disposition home or self-care (01) ==
LOC: LABPAT 08:53
PROVIDERS: ATTEND Internal Medicine
DX: Z01.818 Encounter for other preprocedural examination (principal); R94.31 Abnormal electrocardiogram [ECG] [EKG]
CPT/HCPCS: 36415; 80051; 82565; 84520; 85027

== ENCOUNTER 2020-08-18 06:22 | Day surgery (SDC) | payer OTHER ==
[2020-08-14 11:10] VITALS: BMI 25.8
[~2020-08-18 06:22] MED LIST changes: +ALPRAZolam 0.25 MG TAB PO PRN; +ALPRAZolam 0.5 MG TAB PO PRN; +NITROGLYCERIN SL TABS 0.4 MG TAB SUBLINGUAL PRN; -REGADENOSON 0.4 MG/5 ML SYRINGE IV ONE; +SODIUM CHLORIDE 0.9% 1,000 ML in EMPTY BAG 1 BAG IV ONE
[2020-08-18 06:51] LABS: Glucose,Whole Blood 156 mg/dL (75-99)
[2020-08-18] MEDS ORDERED: ASPIRIN 325 MG TAB PO ONE (07:00)
[2020-08-18 07:04] VITALS: RESP 18; TEMP 98.2
[2020-08-18] MEDS ORDERED: MIDAZOLAM 2 MG/2 ML VIAL IV ONE (07:35)
[2020-08-18] MEDS ORDERED: LIDOCAINE 1% INJ 10MG/ML (20 ML MDV) SQ ONE (07:37)
[2020-08-18] MEDS ORDERED: fentaNYL (PF) 50 MCG/ML 2 ML AMP IV ONE (07:38)
[2020-08-18] MEDS: VERAPAMIL SYRINGE (5 MG/10 ML) INTRAARTER ONE ×2 (07:39→07:55)
[2020-08-18] MEDS ORDERED: IOPAMIDOL-370 125ML BTL INJ ONE (07:52)
[2020-08-18 07:53] LABS: Basophils # (A) 0.1 k/uL (0-0.2); Basophils % (A) 1 %; Eosinophils # (A) 0.3 k/uL (0-0.7); Eosinophils % (A) 4 %; HCT 45.7 % (34.0-46.0); HGB 15.2 gm/dL (11.4-16.0); Lymphocytes # (A) 2.5 k/uL (1.0-4.8); Lymphocytes % (A) 32 %; MCH 29.2 pg (25.0-35.0); MCHC 33.2 g/dL (31.0-37.0); Mean Platelet Volume 7.9; Monocytes # (A) 0.3 k/uL (0-1.0); Monocytes % (A) 4 %; Neutrophils # (A) 4.5 k/uL (1.3-7.7); Neutrophils % (A) 58 %; Platelet Count 228 k/uL (150-450); RBC 5.19 m/uL (3.80-5.40); RDW 12.5 % (11.5-15.5); WBC 7.7 k/uL (3.8-10.6)
[2020-08-18 08:00] LABS: African American GFR (CKD) >90 (>60 ml/min/1.73 sqM); Anion Gap 9 mmol/L; Blood Urea Nitrogen 11 mg/dL (7-17); Calcium 9.8 mg/dL (8.4-10.2); Carbon Dioxide 25 mmol/L (22-30); Chloride 107 mmol/L (98-107); Glucose 182 mg/dL (74-99); Non-African American GFR(CKD) >90 (>60 ml/min/1.73 sqM); Potassium 4.3 mmol/L (3.5-5.1); Sodium 141 mmol/L (137-145)
[2020-08-18] MEDS ORDERED: RX INFO: IV CONTRAST WAS GIVEN 1 EACH MISC MISCELLANE PRN (08:02)
--- NOTE | 2020-08-18 08:02 | P.CARDCATH ---
Date of Procedure: 08/18/20 Description of Procedure: PROCEDURES PERFORMED: Left heart catheterization, bilateral coronary angiography INDICATION: Normal stress test, angina HISTORY: Patient is a pleasant 49-year-old female with history of diabetes mellitus who presents for workup of abnormal stress test. She stated initially she had more of a musculoskeletal pain and therefore a stress test was ordered which showed a anterior perfusion defect concerning for ischemia. She additionally has been having episodes of feeling chest pressure and tightness mainly when she is agitated or stressed out. Options were discussed with patient and patient chose a heart catheterization to further workup her chest pain. CONSENT:I have discussed the risks, benefits and alternative therapies for the above-mentioned procedure and for both sedation/analgesia as well as necessary blood product administration, if indicated, as they pertain to this patient. The patient has indicated understanding and acceptance of the risks and procedures discussed. PROCEDURE: After the risks, benefits and alternatives of the above mentioned procedure explained in detail with the patient, informed consent was obtained. Patient was taken to the catheterization lab and prepped and draped in usual fashion. 1% lidocaine was used to anesthetize the left radial artery secondary to recent right radial fracture. A 6-Vietnamese sheath was placed in the left radial artery using modified Seldinger technique. Left coronary angiography was performed with a 5-Vietnamese JL 3.5 catheter and right coronary angiography was performed with a 5-Vietnamese JR5 catheter in various views. A 5-Vietnamese pigtail catheter was inserted into the left ventricle and pressure measurements were obtained. The left radial sheath was removed and a TR band was placed with hemostasis achieved. The patient tolerated the procedure well. Patient was transported back to the post catheterization holding area in stable condition. Conscious Sedation: Patient was monitored under the direct supervision of vision of myself for conscious sedation using 1 mg Versed and 25 mcg fentanyl for a total duration of 19 minutes HEMODYNAMICS: Aortic: 105/58 LV: 106/3, LVEDP 7 SELECTIVE CORONARY ARTERIOGRAPHY: LEFT MAIN: The left main is a large caliber vessel which bifurcates into the LAD and circumflex. There is no significant stenosis. LEFT ANTERIOR DESCENDING CORONARY ARTERY: LAD is a large caliber vessel which wraps around to the apex. There is no significant stenosis. LEFT CIRCUMFLEX CORONARY ARTERY: Left circumflex is a moderate caliber vessel without significant stenosis. RIGHT CORONARY ARTERY: The right coronary artery is a large caliber vessel which gives off a PDA and PLV branch and is the dominant vessel. There is no significant stenosis. FINAL IMPRESSION: 1. Normal coronary arteries as described above. PLAN: 1. Aggressive risk factor modification per most recent ACC/AHA guidelines. 2. Follow-up in the office in 1-2 weeks.
[2020-08-18] MEDS ORDERED: SODIUM CHLORIDE 0.9% 1,000 ML IV SCH (08:15)
[2020-08-18 10:47] VITALS: BP 117/76; PULSE 69
== END 2020-08-18 11:22 | disposition home or self-care (01) ==
LOC: CATHCVL 06:22
PROVIDERS: ATTEND Internal Medicine
DX: I20.9 Angina pectoris, unspecified (principal); E11.9 Type 2 diabetes mellitus without complications; E78.5 Hyperlipidemia, unspecified; I73.9 Peripheral vascular disease, unspecified; Z88.5 Allergy status to narcotic agent; Z88.1 Allergy status to other antibiotic agents; Z88.0 Allergy status to penicillin; R00.0 Tachycardia, unspecified; Z79.4 Long term (current) use of insulin; Z79.899 Other long term (current) drug therapy; Z79.890 Hormone replacement therapy; Z82.49 Family history of ischemic heart disease and other diseases of the circulatory system
CPT/HCPCS: 93458; 80048; 85025; C1769; C1894; J2250; J2001; J3010; J1644; Q9967

== ENCOUNTER → 2020-12-12 | Outpatient (CLI) | payer OTHER ==
[2020-12-12 11:43] LABS: African American GFR (CKD) >90 (>60 ml/min/1.73 sqM); Blood Urea Nitrogen 22 mg/dL (7-17); Non-African American GFR(CKD) 83 (>60 ml/min/1.73 sqM)
--- NOTE | 2020-12-12 12:21 | CT ---
EXAMINATION TYPE: CT soft tissue neck w con DATE OF EXAM: 12/12/2020 HISTORY: Lump on neck right submandibular level which has resolved per patient. COMPARISON: CT cervical spine July 31, 2019. CT neck February 25, 2012 CT DLP: 393.0 mGycm. Automated Exposure Control for Dose Reduction was Utilized. TECHNIQUE: CT scan of the neck is performed with IV Contrast, patient injected with 100 mL of Isovue 300, axial images are obtained, coronal and sagittal reformatted images are reviewed. FINDINGS: Airway: No gross abnormality seen. Parotid/submandibular glands: No gross abnormality seen. Carotid/Vascular Structures: No significant abnormality. Osseous Structures: Mild disc space narrowing and mild to moderate anterior spurring C6-C7 level rede monstrated. Other: Metallic BB placed at site of prior palpable abnormality left neck axial image 72. This is jus t below the level of the left zygomatic arch. This is near the anterior superior margin of the left p arotid gland. Normal clinical document improvement educator muscle tissue is present at this level. There is punctate 3 mm lymph node axial image 70 redemonstrated unchanged from 2012 CT axial image 25. No worrisome solid or cysti c mass or abnormal fluid collection is present. No greater than 1 cm adenopathy noted. IMPRESSION: No suspicious mass or adenopathy with particular attention to the left inferior maxillar y sinus level at area of patient concern. No significant change from prior studies.
== END | disposition home or self-care (01) ==
LOC: RADCTMAIN 10:12
PROVIDERS: ATTEND Family Medicine
DX: R22.1 Localized swelling, mass and lump, neck (principal); E11.9 Type 2 diabetes mellitus without complications
CPT/HCPCS: 82565; 84520; 70491; 36415; Q9967

== ENCOUNTER 2021-06-21 00:55 | Emergency (ER) | payer OTHER ==
[2021-06-21 01:00] VITALS: BP 148/89; PULSE 79; RESP 19; TEMP 97.8
[2021-06-21] MEDS ORDERED: HYDROmorphone 1 MG/ML 1 ML SYRINGE IM STA (01:24)
--- NOTE | 2021-06-21 02:15 | ED ---
General Adult HPI - General Chief complaint: Dental/Oral Stated complaint: Dental Pain Time Seen by Provider: 06/21/21 01:03 Source: patient, RN notes reviewed Mode of arrival: ambulatory - History of Present Illness Initial comments: Patient is a 50-year-old female that presents emergency, complaining of mouth pain after getting 26 directed on . She notes she was not given any pain medications for post procedure. She notes she is still taking her antibiotics as prescribed patient was she needs symptomatic control for the pain today. She denied any other issues or complaints at this time. She did have some bruising to her face from the procedure. She denied any issues or complaints. She was otherwise a well-appearing 50-year-old female no apparent distress or pain. She denied chest pain first breath headache nausea vomiting diarrhea constipation fever fatigue chills. - Related Data Home Medications Medication Instructions Recorded Confirmed Insulin Aspart [NovoLOG Flexpen] See Protocol SQ AC-TID PRN 05/28/15 08/18/20 Pregabalin [Lyrica] 75 mg PO HS 05/28/15 08/18/20 Propranolol [Inderal] 40 mg PO HS 05/28/15 08/18/20 DULoxetine HCL [Cymbalta] 30 mg PO HS 03/19/19 08/18/20 Insulin Degludec [Tresiba 50 units SQ HS 03/19/19 08/18/20 Flextouch U-200 Pen] Magnesium 200 mg PO HS 07/03/19 08/18/20 diphenhydrAMINE HCL [Benadryl] 1 - 2 tab PO HS 07/03/19 08/18/20 EPINEPHrine (Auto Inject) [Epipen] 0.3 mg IM ONCE PRN 11/05/19 08/18/20 Levothyroxine Sodium [Synthroid] 50 mcg PO HS 11/05/19 08/18/20 Timolol 0.25% Ophth Soln [Timoptic 1 drops BOTH EYES DAILY 11/08/19 08/18/20 0.25% Ophth Soln] Soy Isofla/Blk Cohosh/Mag Bark 155 mg PO HS 12/04/19 08/18/20 [Estroven 155 mg Capsule] Ascorbic Acid [Vitamin C] 3 tab PO HS 08/14/20 08/18/20 Aspirin [Adult Low Dose Aspirin EC] 81 mg PO DAILY 08/14/20 08/18/20 Ezetimibe/Simvastatin [Vytorin 1 tab PO HS 08/14/20 08/18/20 10-20 mg] Latanoprost/Pf [Latanoprost 0.005% 1 drop BOTH EYES HS 08/14/20 08/18/20 Eye Drop] Previous Rx's Medication Instructions Recorded Hydrocodone/Acetaminophen [[place] 1 tab PO Q6HR PRN #10 tab 12/07/19 5-325] HYDROcodone/APAP 10-325MG [[place] 1 tab PO Q6HR PRN 3 Days #12 tab 06/21/21 10-325] Allergies Allergy/AdvReac Type Severity Reaction Status Date / Time amoxicillin Allergy Anaphylaxis Verified 06/21/21 01:00 ciprofloxacin [From Cipro] Allergy Itching Verified 06/21/21 01:00 ciprofloxacin HCl Allergy Itching Verified 06/21/21 01:00 [From Cipro] erythromycin base Allergy Swelling Verified 06/21/21 01:00 naproxen Allergy Anaphylaxis Verified 06/21/21 01:00 Penicillins Allergy CHEST PAIN Verified 06/21/21 01:00 AND RASH codeine AdvReac Nausea & Verified 06/21/21 01:00 Vomiting morphine AdvReac HARD TIME Verified 06/21/21 01:00 WAKING UP AND B/P DROPS VERY LOW sulfamethoxazole AdvReac Nausea & Verified 06/21/21 01:00 [From Bactrim] Vomiting tramadol HCl [From Ultram] AdvReac Nausea & Verified 06/21/21 01:00 Vomiting trimethoprim [From Bactrim] AdvReac Nausea & Verified 06/21/21 01:00 Vomiting Review of Systems ROS Statement: Those systems with pertinent positive or pertinent negative responses have been documented in the HPI. ROS Other: All systems not noted in ROS Statement are negative. Past Medical History Past Medical History: Diabetes Mellitus, GERD/Reflux, Hyperlipidemia, Seizure Disorder, Thyroid Disorder Additional Past Medical History / Comment(s): endometritis, glaucoma. last seizure 2007 does not take meds now. fx rt wrist 07/11/20 History of Any Multi-Drug Resistant Organisms: None Reported Past Surgical History: Bladder Surgery, Breast Surgery, Cholecystectomy, Hysterectomy Additional Past Surgical History / Comment(s): breast reduction, bladder suspension Past Anesthesia/Blood Transfusion Reactions: Previous Problems w/ Anesthesia Additional Past Anesthesia/Blood Transfusion Reaction / Comment(s): "come out a little slower" Past Psychological History: Depression Smoking Status: Never smoker Past Alcohol Use History: None Reported Past Drug Use History: None Reported - Past Family History Mother Family Medical History: Coronary Artery Disease (CAD), CVA/TIA, Hypertension Father Family Medical History: Cancer, Coronary Artery Disease (CAD), Myocardial Infarction ([place]) Additional Family Medical History / Comment(s): polycythemia. from massive heart attack age 66 General Exam General appearance: alert, in no apparent distress Head exam: Present: atraumatic, normocephalic, normal inspection, other (Some ecchymosis to the face and right thigh most likely from the dental procedure.) Eye exam: Present: normal appearance, PERRL, EOMI. Absent: scleral icterus, conjunctival injection, periorbital swelling ENT exam: Present: normal exam, mucous membranes moist, other (No exposed bone in the mouth from the dental extraction.) Neck exam: Present: normal inspection Respiratory exam: Present: normal lung sounds bilaterally. Absent: respiratory distress, wheezes, rales, rhonchi, stridor Cardiovascular Exam: Present: regular rate, normal rhythm, normal heart sounds. Absent: systolic murmur, diastolic murmur, rubs, gallop, clicks Extremities exam: Present: normal inspection, full ROM, normal capillary refill. Absent: tenderness, pedal edema, joint swelling, calf tenderness Neurological exam: Present: alert, oriented X3 Psychiatric exam: Present: normal affect, normal mood Skin exam: Present: warm, dry, intact, normal color. Absent: rash Course Vital Signs 06/21/21 00:57 Temperature 97.8 F Pulse Rate 79 Respiratory 19 Rate Blood Pressure 148/89 O2 Sat by Pulse 98 Oximetry Medical Decision Making - Medical Decision Making 50-year-old female complaining of mouth pain after dental extraction on . On physical exam there is no visible bone. We will milligram of Dilaudid ordered for pain control. Patient is agreeable to discharge home with Tylenol 3 starter pack and follow-up to dentist as soon as possible. Patient will continue her antibiotics as prescribed. Case discussed with Dr. Sams, patient discharge home. Disposition Clinical Impression: Pain, dental Disposition: HOME SELF-CARE Condition: Stable Additional Instructions: Please return to the Emergency Department if symptoms worsen or any other concerns. Follow-up with primary care 1-2 days. Follow-up with dentist as soon as possible. Take pain medications as prescribed. Is patient prescribed a controlled substance at d/c from ED?: Yes When asked, does pt state using other controlled substances?: No If prescribed controlled substance>3 days was MAPS reviewed?: No If opioid is for acute pain is fill amount 7 days or less?: Yes If Rx opioid, was Start Talking consent form obtained?: No Referrals: Mikey Lindsey MD [Primary Care Provider] - 1-2 days Time of Disposition: 02:13
== END 2021-06-21 02:31 | disposition home or self-care (01) ==
LOC: EC 00:55
DX: K08.89 Other specified disorders of teeth and supporting structures (principal); E11.9 Type 2 diabetes mellitus without complications; E78.5 Hyperlipidemia, unspecified; G40.909 Epilepsy, unspecified, not intractable, without status epilepticus; K21.9 Gastro-esophageal reflux disease without esophagitis; Z79.4 Long term (current) use of insulin; Z79.82 Long term (current) use of aspirin
CPT/HCPCS: 99282; 96372; J1170

== ENCOUNTER → 2021-09-15 | Outpatient (CLI) | payer OTHER ==
--- NOTE | 2021-09-15 09:39 | NM ---
Nuclear medicine hepatobiliary scan. HISTORY: Pain. DOSAGE: The patient received 4.4 mCi of Technetium 99m Choletec. FINDINGS: There is normal hepatic extraction. The gallbladder is not seen at 60 minutes. Biliary to b owel clearance is seen at 30 minutes. Patient has a history of previous cholecystectomy. IMPRESSION: 1. Both postcholecystectomy changes with radiotracer seen involving the small bowel at 30 minutes. Th ere is a linear band of uptake seen along the lower margin of the left lobe of the liver. This could represent uptake within the duodenum. Recommend ultrasound of the abdomen to assess for free fluid\bi le leak which is felt less likely.
== END | disposition home or self-care (01) ==
LOC: RADNMMAIN 07:14
PROVIDERS: ATTEND Family Medicine
DX: R10.9 Unspecified abdominal pain (principal); Z90.49 Acquired absence of other specified parts of digestive tract
CPT/HCPCS: 78226; A9537

== ENCOUNTER → 2021-10-08 | Outpatient (CLI) | payer OTHER ==
--- NOTE | 2021-10-08 11:18 | FL ---
EXAMINATION TYPE: FL UGI air w small bowel DATE OF EXAM: 10/08/2021 COMPARISON: CT abdomen and pelvis April 23, 2020 HISTORY: History of Kareem fundoplication surgical repair in 2020 results with epigastric pain and di arrhea. TECHNIQUE: A single contrast UGI study is performed with small bowel follow through due to surgical history. A total of 50 seconds of fluoroscopic time was utilized during procedure and 56 images obta ined. FINDINGS: Technical Instructor image of the abdomen shows cholecystectomy clips and overall nonobstructive bowel ga s pattern. The esophagus shows normal motility and emptying into the stomach. Low diverticulum appreciated. No evidence of recurrent hiatal hernia or stricture noted. Surgical change at level of diaphragmatic hi atus is present. The stomach shows satisfactory distention for single contrast study. Normal mucosal folds identified. No evidence of any focal ulcer disease. No significant esophageal reflux was seen during real time performance of this study. The duodenal bulb and sweep are within normal limits. The small bowel study shows normal transit to the colon in less than 90 minutes. There is normal muc osal fold pattern throughout the small bowel. There is no evidence of any stricture or filling defec t noted. The terminal ileum is spotted and appears within normal limits. IMPRESSION: Postsurgical changes diaphragmatic hiatus without recurrent hiatal hernia. No new signif icant findings seen to account for patient's clinical symptoms.
== END | disposition home or self-care (01) ==
LOC: RADFLMAIN 07:56
PROVIDERS: ATTEND Family Medicine
DX: R10.13 Epigastric pain (principal); R10.84 Generalized abdominal pain; R19.7 Diarrhea, unspecified
CPT/HCPCS: 74240; 74248

== ENCOUNTER → 2021-10-30 | Outpatient (CLI) | payer OTHER ==
[2021-10-30 18:35] LABS: HGB 15.3 g/dL (12.0-15.0); MCH 28.9 pg (27.0-32.0); MCHC 32.6 g/dL (32.0-37.0); MCV 88.8 fL (80.0-97.0); Mean Platelet Volume 10.6 fL (9.5-12.2); Platelet Count 246 X 10*3/uL (140-440); RBC 5.29 X 10*6/uL (4.10-5.20); RDW 12.3 % (11.5-14.5); WBC 7.99 X 10*3/uL (4.50-10.00)
[2021-10-30 19:29] LABS: Erythrocyte Sedimentation Rate 3 mm/Hr (0-30)
== END | disposition home or self-care (01) ==
LOC: LABWHC1 14:50
PROVIDERS: ATTEND Internal Medicine Gastroenterology
DX: K52.9 Noninfective gastroenteritis and colitis, unspecified (principal)
CPT/HCPCS: 36415; 83516; 85027; 85652; 86140

== ENCOUNTER 2021-11-06 07:17 | Day surgery (SDC) | payer OTHER ==
[2021-11-04 15:15] VITALS: BMI 23.8
[~2021-11-06 07:17] MED LIST changes: -ALPRAZolam 0.25 MG TAB PO PRN; -ALPRAZolam 0.5 MG TAB PO PRN; +LACTATED RINGERS 1,000 ML IV SCH; -NITROGLYCERIN SL TABS 0.4 MG TAB SUBLINGUAL PRN; -SODIUM CHLORIDE 0.9% 1,000 ML in EMPTY BAG 1 BAG IV ONE
[2021-11-06 07:55] LABS: Glucose,Whole Blood 248 mg/dL (75-99)
[2021-11-06 07:56] VITALS: TEMP 98.1
[2021-11-06] MEDS ORDERED: INSULIN ASPART (NovoLOG) 100 UNIT/ML VIAL SQ ONE (08:04)
[2021-11-06] MEDS ORDERED: LIDOCAINE 1% INJ 10MG/ML (20 ML MDV) ONE (08:31)
[2021-11-06] MEDS ORDERED: PROPOFOL 10 MG/ML 20 ML VIAL IV ONE (08:31)
--- NOTE | 2021-11-06 08:41 | P.PCN ---
Date of Procedure: 11/06/21 Procedure(s) Performed: BRIEF HISTORY: Patient is a 51-year-old, pleasant, white female scheduled for an upper endoscopy as a part of evaluation of dysphagia to solids for the last 1 year duration. She had a Ale fundoplication in 2019 and since then has been having worsening symptoms of progressive weight loss.. PROCEDURE PERFORMED: Esophagogastroduodenoscopy with biopsy and dilation. PREOPERATIVE DIAGNOSIS: Intermittent dysphagia to solids cirrhosis of fundoplication in 2019 and progressive weight loss. IV sedation per anesthesia. PROCEDURE: After informed consent was obtained, the patient was brought into the endoscopy unit. IV sedation was administered by Anesthesia under continuous monitoring. Initially the Olympus GIF-140 video endoscope was inserted into the mouth. Esophagus intubated without any difficulty. It was gradually advanced into the stomach and duodenum and carefully examined. The bulb and the second part of the duodenum appeared normal. The scope at this time was withdrawn to the stomach, adequately insufflated with air, and upon careful examination, mucosa of the antrum, had mild gastritis and biopsies were done from this area. The body, cardia and the fundus appeared normal. The scope was then withdrawn into the esophagus. The GE junction was located at 41 cm from the incisors. It appeared very tight from the distal fundoplication. At this time I proceeded with empiric dilation with 18-20 mm TTS balloon for 90 seconds. The rest of the esophagus appeared normal. There were no erosions or ulcerations seen , biopsies were done from the distal esophagus and the patient tolerated the procedure well. IMPRESSION: 1. Tight lower esophageal sphincter secondary to some fundoplication status post empiric dilation with 18-20 mm TTS balloon as described above. 2. Mild antral gastritis. RECOMMENDATIONS: The findings of this examination were discussed with the patient as well as a family. She was advised to continue with her current medications and follow antireflux measures. She will follow with the biopsy results and she'll be seen in office in 2 months.
[2021-11-06 08:49] LABS: Glucose,Whole Blood 239 mg/dL (75-99)
[2021-11-06 09:00] VITALS: BP 112/77; PULSE 77; RESP 18
== END 2021-11-06 09:25 | disposition home or self-care (01) ==
LOC: ORWHC2ENDO 07:17
PROVIDERS: ATTEND Internal Medicine Gastroenterology
DX: K29.70 Gastritis, unspecified, without bleeding (principal); K22.9 Disease of esophagus, unspecified
CPT/HCPCS: 43239; 43249; J2001; J2704; C1726; 88305

== ENCOUNTER 2022-06-16 16:03 | Emergency (ER) | payer OTHER ==
[2022-06-16 16:35] VITALS: TEMP 97.8
--- NOTE | 2022-06-16 19:05 | XR ---
EXAMINATION TYPE: XR KUB DATE OF EXAM: 06/16/2022 COMPARISON: NONE HISTORY: Constipation TECHNIQUE: 3 views FINDINGS: There are multiple intestinal fluid levels in the upper abdomen that could be some small alexey wel ileus. No evidence of free air. Lung bases are clear. No evidence of abdominal mass. There are cl ips from cholecystectomy. IMPRESSION: Small bowel fluid levels could relate to some mild ileus. No free air. No significant dil ated loops.
[2022-06-16] MEDS ORDERED: SODIUM CHLORIDE 0.9% 1,000 ML IV STA (19:14)
[2022-06-16] MEDS ORDERED: diphenhydrAMINE 50 MG/ML 1 ML VIAL IVP STA (19:42)
[2022-06-16] MEDS ORDERED: METOCLOPRAMIDE 5 MG/ML 2 ML VIAL IVP STA (19:42)
[2022-06-16] MEDS ORDERED: ACETAMINOPHEN IV (For NPO) 1,000 MG in EMPTY BAG 1 BAG IVPB STA (19:43)
--- NOTE | 2022-06-16 19:49 | ED ---
Headache HPI - General Chief Complaint: Headache Stated Complaint: Blockage Time Seen by Provider: 06/16/22 19:10 Source: RN notes reviewed Mode of arrival: ambulatory Limitations: no limitations - History of Present Illness Initial Comments: This is a pleasant 51-year-old female with multiple medical comorbidities as listed. Patient also has a history of tachycardia which she takes propanolol 4. Apparently the patient just had a procedure to look at her esophagus and hiatal hernia. Patient previous had dilatation of this. At that time she had x-rays done showing that she might have some constipation. Patient has been taking constipation medication since last week when she was sent [facility] for that procedure. However, patient states that she developed a headache at 5:30 AM this morning. She states this is mostly in the frontal region. Patient has had nausea. No confusion. No focal deficits. No gait disturbance. No dizziness, some lightheadedness. Patient does have photophobia. Patient states that she used to have migraine headaches in the past but not in several years. Denied neck stiffness. no fever or chills, no changes in vision or hearing, no sore throat or difficulty with speech, no neck pain, no chest pain or shortness of breath, no abdominal pain, no vomiting, some constipation with intermittent loose stools, no changes in urination or bowel movements, no numbness or tingling, no extremity pain, no skin rashes or lesions. Past medical, surgical, social, and family history reviewed. - Related Data Home Medications Medication Instructions Recorded Confirmed Insulin Aspart [NovoLOG Flexpen] 10 unit SQ DAILY PRN 05/28/15 06/16/22 Pregabalin [Lyrica] 75 mg PO HS 05/28/15 06/16/22 Propranolol [Inderal] 40 mg PO HS 05/28/15 06/16/22 Insulin Degludec [Tresiba 55 units SQ HS 03/19/19 06/16/22 Flextouch U-200 Pen] Latanoprost/Pf [Latanoprost 0.005% 1 drop BOTH EYES HS 08/14/20 06/16/22 Eye Drop] DULoxetine HCL [Cymbalta] 60 mg PO HS 06/16/22 06/16/22 Simvastatin [Zocor] 40 mg PO HS 06/16/22 06/16/22 icosapent ethyL [Icosapent Ethyl] 1 gm PO BID 06/16/22 06/16/22 Allergies Allergy/AdvReac Type Severity Reaction Status Date / Time amoxicillin Allergy Anaphylaxis Verified 06/16/22 21:20 ciprofloxacin HCl Allergy Itching Verified 06/16/22 21:20 [From Cipro] erythromycin base Allergy Swelling Verified 06/16/22 21:20 naproxen Allergy Anaphylaxis Verified 06/16/22 21:20 Penicillins Allergy CHEST PAIN Verified 06/16/22 21:21 AND RASH codeine AdvReac Nausea & Verified 06/16/22 21:20 Vomiting morphine AdvReac HARD TIME Verified 06/16/22 21:20 WAKING UP AND B/P DROPS VERY LOW sulfamethoxazole AdvReac Nausea & Verified 06/16/22 21:20 [From Bactrim] Vomiting tramadol HCl [From Ultram] AdvReac Nausea & Verified 06/16/22 21:20 Vomiting trimethoprim [From Bactrim] AdvReac Nausea & Verified 06/16/22 21:20 Vomiting Review of Systems ROS Statement: Those systems with pertinent positive or pertinent negative responses have been documented in the HPI. ROS Other: All systems not noted in ROS Statement are negative. Past Medical History Past Medical History: Diabetes Mellitus, GERD/Reflux, Hyperlipidemia, Seizure Disorder, Thyroid Disorder Additional Past Medical History / Comment(s): endometritis, glaucoma. last seizure 2007 does not take meds now. fx rt wrist 07/11/20. Tachycardia. Previous headaches History of Any Multi-Drug Resistant Organisms: None Reported Past Surgical History: Bladder Surgery, Breast Surgery, Cholecystectomy, Hysterectomy Additional Past Surgical History / Comment(s): breast reduction, bladder suspension Past Anesthesia/Blood Transfusion Reactions: Previous Problems w/ Anesthesia Additional Past Anesthesia/Blood Transfusion Reaction / Comment(s): "come out a little slower" Past Psychological History: Depression Smoking Status: Never smoker Past Alcohol Use History: None Reported Past Drug Use History: None Reported - Past Family History Mother Family Medical History: Coronary Artery Disease (CAD), CVA/TIA, Hypertension Father Family Medical History: Cancer, Coronary Artery Disease (CAD), Myocardial Infarction ([place]) Additional Family Medical History / Comment(s): polycythemia. from massive heart attack age 66 General Exam - General Exam Comments Initial Comments: Patient appears to be in distress secondary headache. Does not appear to be ill or toxic. Cranial nerves II through XII are intact. Patient holding the front of her head and keep her eyes closed due to photophobia. Vital signs reviewed. Limitations: no limitations General appearance: alert, in distress Head exam: Present: atraumatic, normocephalic, normal inspection Eye exam: Present: normal appearance, PERRL, EOMI. Absent: scleral icterus, conjunctival injection, periorbital swelling ENT exam: Present: normal exam, mucous membranes moist Neck exam: Present: normal inspection. Absent: tenderness, meningismus, lymphadenopathy Respiratory exam: Present: normal lung sounds bilaterally. Absent: respiratory distress, wheezes, rales, rhonchi, stridor Cardiovascular Exam: Present: regular rate, normal rhythm, normal heart sounds. Absent: systolic murmur, diastolic murmur, rubs, gallop, clicks GI/Abdominal exam: Present: soft, normal bowel sounds. Absent: distended, tenderness, guarding, rebound, rigid Extremities exam: Present: normal inspection, full ROM, normal capillary refill. Absent: tenderness, pedal edema, joint swelling, calf tenderness Back exam: Present: normal inspection Neurological exam: Present: alert, oriented X3, CN II-XII intact Psychiatric exam: Present: normal affect, normal mood Skin exam: Present: warm, dry, intact, normal color. Absent: rash Course Vital Signs 06/16/22 06/17/22 16:31 00:40 Temperature 97.8 F Pulse Rate 100 74 Respiratory 16 15 Rate Blood Pressure 140/92 133/68 O2 Sat by Pulse 98 99 Oximetry - Reevaluation(s) Reevaluation #1: 06/16/22 22:43 Medical record is reviewed Symptoms are improved here in the emergency department We are still awaiting results of the CT of the brain with and without contrast. I did review this film myself. No definitive evidence of acute pathology as read by me. Reevaluation #2: 06/17/22 01:31 Patient reevaluated and states she feels much better. Headache is essentially resolved. Patient able hold down fluids. No vomiting. Patient neurologically intact. Alert night 4. Cranial nerves Reevaluation #3: 06/17/22 02:04 Patient and have doing well with the by mouth fluid challenge. No vomiting. Patient went to the bathroom twice to include bowel movement. I suspected air- fluid levels noted on plain x-rays are related the patient's chronic abdominal issues. Repeat abdominal examination was benign. No pain. No tenderness. Soft. Noted the patient did have some hyperactive bowel sounds. Medical Decision Making - Medical Decision Making Patient presents with a significant headache acetify 30 a.m. States this is a worse headache she's had many years. This is a change from the patient's baseline. I'm going to order a CT of the head with and without contrast. Patient also having some abdominal discomfort which has been ongoing. Denying any chest pain. We'll order a general abdominal labs to include EKG. CT of the brain with and without contrast did not show any acute findings. Patient was much improved after treatment. Patient able to hold down fluids despite air-fluid levels noted on KUB. Suspected noted ileus may be related the patient's chronic abdominal issues. Patient had no abdominal pain or tenderness on reevaluation. Suggested MiraLAX daily for constipation. Patient to follow- up with her regular physician as soon as possible. Patient was told to return to the ER for any signs or symptoms worsen. Told to return immediately if any other problems arise. All questions answered. Treatment plan discussed. Patient in agreement Every effort has been made to ensure accuracy of this dictation. However, due to the limitations of electronic medical records and dictation devices, errors in charting still occur. I did offer a computed tomography scan of abdomen based on air-fluid levels. However the patient was in no distress had no abdominal pain. Patient is deferring this stating that she feels better and just wants to be discharged. Patient is lucid, alert 4, able to make her own medical decisions. The case was discussed in detail with ED attending physician. Presentation, findings, treatment plan discussed in detail. Title Assistant Dr. Bell - Lab Data Result diagrams: 06/16/22 19:35 06/16/22 19:35 Lab Results 06/16/22 06/16/22 06/16/22 Range/Units 19:35 19:35 19:35 WBC 8.4 (3.8-10.6) k/uL RBC 5.45 H (3.80-5.40) m/uL Hgb 15.5 (11.4-16.0) gm/dL Hct 48.1 H (34.0-46.0) % MCV 88.4 (80.0-100.0) fL MCH 28.4 (25.0-35.0) pg MCHC 32.1 (31.0-37.0) g/dL RDW 13.1 (11.5-15.5) % Plt Count 210 (150-450) k/uL MPV 7.9 Neutrophils % 75 % Lymphocytes % 19 % Monocytes % 3 % Eosinophils % 2 % Basophils % 0 % Neutrophils # 6.3 (1.3-7.7) k/uL Lymphocytes # 1.6 (1.0-4.8) k/uL Monocytes # 0.2 (0-1.0) k/uL Eosinophils # 0.1 (0-0.7) k/uL Basophils # 0.0 (0-0.2) k/uL Sodium 141 (137-145) mmol/L Potassium 4.0 (3.5-5.1) mmol/L Chloride 105 (98-107) mmol/L Carbon Dioxide 23 (22-30) mmol/L Anion Gap 13 mmol/L BUN 9 (7-17) mg/dL Creatinine 0.57 (0.52-1.04) mg/dL Est GFR (CKD-EPI)AfAm >90 (>60 ml/min/1.73 sqM) Est GFR (CKD-EPI)NonAf >90 (>60 ml/min/1.73 sqM) Glucose 142 H (74-99) mg/dL Plasma Lactic Acid Ilia 0.7 (0.7-2.0) mmol/L Calcium 9.7 (8.4-10.2) mg/dL Total Bilirubin 2.0 H (0.2-1.3) mg/dL AST 30 (14-36) U/L ALT 44 H (4-34) U/L Alkaline Phosphatase 88 (38-126) U/L Troponin I (0.000-0.034) ng/mL Total Protein 6.8 (6.3-8.2) g/dL Albumin 4.6 (3.5-5.0) g/dL Lipase 91 (23-300) U/L Urine Color Urine Appearance (Clear) Urine pH (5.0-8.0) Ur Specific [place] (1.001-1.035) Urine Protein (Negative) Urine Glucose (UA) (Negative) Urine Ketones (Negative) Urine Blood (Negative) Urine Nitrite (Negative) Urine Bilirubin (Negative) Urine Urobilinogen (<2.0) mg/dL Ur Leukocyte Esterase (Negative) Coronavirus (PCR) (Not Detectd) 06/16/22 06/16/22 06/17/22 Range/Units 19:35 20:17 01:44 WBC (3.8-10.6) k/uL RBC (3.80-5.40) m/uL Hgb (11.4-16.0) gm/dL Hct (34.0-46.0) % MCV (80.0-100.0) fL MCH (25.0-35.0) pg MCHC (31.0-37.0) g/dL RDW (11.5-15.5) % Plt Count (150-450) k/uL MPV Neutrophils % % Lymphocytes % % Monocytes % % Eosinophils % % Basophils % % Neutrophils # (1.3-7.7) k/uL Lymphocytes # (1.0-4.8) k/uL Monocytes # (0-1.0) k/uL Eosinophils # (0-0.7) k/uL Basophils # (0-0.2) k/uL Sodium (137-145) mmol/L Potassium (3.5-5.1) mmol/L Chloride (98-107) mmol/L Carbon Dioxide (22-30) mmol/L Anion Gap mmol/L BUN (7-17) mg/dL Creatinine (0.52-1.04) mg/dL Est GFR (CKD-EPI)AfAm (>60 ml/min/1.73 sqM) Est GFR (CKD-EPI)NonAf (>60 ml/min/1.73 sqM) Glucose (74-99) mg/dL Plasma Lactic Acid Ilia (0.7-2.0) mmol/L Calcium (8.4-10.2) mg/dL Total Bilirubin (0.2-1.3) mg/dL AST (14-36) U/L ALT (4-34) U/L Alkaline Phosphatase (38-126) U/L Troponin I <0.012 (0.000-0.034) ng/mL Total Protein (6.3-8.2) g/dL Albumin (3.5-5.0) g/dL Lipase (23-300) U/L Urine Color Yellow Urine Appearance Clear (Clear) Urine pH 5.5 (5.0-8.0) Ur Specific [place] 1.023 (1.001-1.035) Urine Protein Trace H (Negative) Urine Glucose (UA) Negative (Negative) Urine Ketones Trace H (Negative) Urine Blood Negative (Negative) Urine Nitrite Negative (Negative) Urine Bilirubin Negative (Negative) Urine Urobilinogen <2.0 (<2.0) mg/dL Ur Leukocyte Esterase Negative (Negative) Coronavirus (PCR) Not Detected (Not Detectd) - EKG Data EKG Comments: EKG done at 1929 and read by the ED attending physician reveals sinus rhythm with a rate of 94. Normal intervals. Normal axis. No evidence of acute ST elevation or depression. Some baseline artifact. Possible inverted T-wave in lead 3 otherwise no evidence of any acute changes. - Radiology Data Radiology results: report reviewed, image reviewed Disposition Clinical Impression: Frontal headache, Chronic abdominal pain Narrative: Esophageal Disposition: HOME SELF-CARE Condition: Good Instructions (If sedation given, give patient instructions): Acute Headache (ED), Constipation (ED) Additional Instructions: Follow-up with your regular physician as directed. Return to the ER immediately if any symptoms worsen, new symptoms arise, or any other problems develop. Make an appointment with your regular doctor. Call at 8 AM. Try [id number] MiraLAX once a day for 3 days for constipation. Is patient prescribed a controlled substance at d/c from ED?: No Referrals: Jeronimo Nolasco MD [Primary Care Provider] - As Soon As Possible Time of Disposition: 02:04
[2022-06-16 20:08] LABS: Basophils % (A) 0 %; Eosinophils # (A) 0.1 k/uL (0-0.7); Eosinophils % (A) 2 %; HCT 48.1 % (34.0-46.0); HGB 15.5 gm/dL (11.4-16.0); Lymphocytes # (A) 1.6 k/uL (1.0-4.8); Lymphocytes % (A) 19 %; MCH 28.4 pg (25.0-35.0); MCHC 32.1 g/dL (31.0-37.0); MCV 88.4 fL (80.0-100.0); Mean Platelet Volume 7.9; Monocytes # (A) 0.2 k/uL (0-1.0); Monocytes % (A) 3 %; Neutrophils # (A) 6.3 k/uL (1.3-7.7); Neutrophils % (A) 75 %; Platelet Count 210 k/uL (150-450); RBC 5.45 m/uL (3.80-5.40); RDW 13.1 % (11.5-15.5); WBC 8.4 k/uL (3.8-10.6)
[2022-06-16 20:18] LABS: ALT 44 U/L (4-34); AST 30 U/L (14-36); African American GFR (CKD) >90 (>60 ml/min/1.73 sqM); Albumin 4.6 g/dL (3.5-5.0); Alkaline Phosphatase 88 U/L (38-126); Anion Gap 13 mmol/L; Blood Urea Nitrogen 9 mg/dL (7-17); Calcium 9.7 mg/dL (8.4-10.2); Carbon Dioxide 23 mmol/L (22-30); Chloride 105 mmol/L (98-107); Glucose 142 mg/dL (74-99); Lipase 91 U/L (23-300); Non-African American GFR(CKD) >90 (>60 ml/min/1.73 sqM); Sodium 141 mmol/L (137-145); Total Protein 6.8 g/dL (6.3-8.2)
--- NOTE | 2022-06-16 22:52 | XR ---
EXAM: XR Chest, 2 Views CLINICAL HISTORY: ITS.REASON XR Reason: abd pain TECHNIQUE: Frontal and lateral views of the chest. COMPARISON: 07/31/2019. FINDINGS: Lungs: No consolidative changes. Minimal scarring at the right upper lobe. Pleural space: No pleural effusions. No pneumothorax. Heart: Cardiomegaly. Mediastinum: Unremarkable. Bones/joints: The osseous structures are unremarkable. Soft tissues: Soft tissues are within normal limits. IMPRESSION: 1. Cardiomegaly be 2. Minimal scarring at the right upper lobe. 3. No pleural effusions.
[2022-06-16] MEDS ORDERED: SODIUM CHLORIDE 0.9% 1,000 ML IV ONE (23:42)
[2022-06-17 00:41] VITALS: PULSE 74; RESP 15
--- NOTE | 2022-06-17 01:04 | CT ---
EXAM: CT Head Without and With Intravenous Contrast CLINICAL HISTORY: ITS.REASON CT Reason: Headache TECHNIQUE: Axial computed tomography images of the head/brain without and with intravenous contrast. CTDI is 97.77 mGy and DLP is 2304.4 mGy-cm. This CT exam was performed using one or more of the following dose reduction techniques: automated exposure control, adjustment of the mA and/or kV according to patient size, and/or use of iterative reconstruction technique. COMPARISON: No relevant prior studies available. FINDINGS: Brain: Unremarkable. No hemorrhage. No significant white matter disease. No edema. No pathologic enhancement. Ventricles: Unremarkable. No ventriculomegaly. Bones/joints: Unremarkable. No acute fracture. Soft tissues: Unremarkable. Sinuses: Unremarkable as visualized. No acute sinusitis. Mastoid air cells: Unremarkable as visualized. No mastoid effusion. IMPRESSION: Normal head/brain CT.
[2022-06-17 01:58] LABS: Appearance,Urine Clear (Clear); Bilirubin,Urine Negative (Negative); Blood,Urine Negative (Negative); Color,Urine Yellow; Glucose,Urine (UA) Negative (Negative); Ketones,Urine Trace (Negative); Leukocyte Esterase,Urine Negative (Negative); Nitrite,Urine Negative (Negative); PH, Urine 5.5 (5.0-8.0); Protein,Urine Trace (Negative); Specific Gravity,Urine 1.023 (1.001-1.035); Urobilinogen,Urine <2.0 mg/dL (<2.0)
[2022-06-17 02:29] VITALS: BP 129/71
== END 2022-06-17 02:29 | disposition home or self-care (01) ==
LOC: EC 16:03
DX: R51.9 Headache, unspecified (principal); G89.29 Other chronic pain; R10.9 Unspecified abdominal pain; E11.9 Type 2 diabetes mellitus without complications; Z79.4 Long term (current) use of insulin; E78.5 Hyperlipidemia, unspecified; Z20.822 Contact with and (suspected) exposure to COVID-19; Z88.0 Allergy status to penicillin; Z88.8 Allergy status to other drugs, medicaments and biological substances; Z88.6 Allergy status to analgesic agent; Z88.2 Allergy status to sulfonamides
CPT/HCPCS: 93005; 80053; 83605; 83690; 84484; 85025; 87635; 71046; 74018; 70470; 99284; 96365; 96366; 96375; J1200; J2765; J0131; Q9967; 36415; 81003; 99285

== ENCOUNTER → 2022-08-06 | Outpatient (CLI) | payer OTHER ==
--- NOTE | 2022-08-06 08:59 | CT ---
EXAMINATION TYPE: CT facial bones wo con DATE OF EXAM: 08/06/2022 COMPARISON: 02/14/2012 HISTORY: Chronic sinusitis and jaw pain. CT DLP: 734.[address] of the paranasal sinuses was performed in the axial and coronal planes. Bone and soft tissue settings are submitted. The paranasal sinuses demonstrate normal aeration and development. The paranasal sinuses are free of mucosal thickening or air fluid level. The osteal meatal units are patent bilaterally. The nasal septum is midline. No bony destructive changes are seen within the field of view. IMPRESSION: Normal unenhanced CT of the paranasal sinuses.
== END | disposition home or self-care (01) ==
LOC: RADCTMAIN 07:54
PROVIDERS: ATTEND Family Medicine
DX: R68.84 Jaw pain (principal)
CPT/HCPCS: 70486

== ENCOUNTER → 2023-02-02 | Outpatient (CLI) | payer OTHER ==
--- NOTE | 2023-02-02 08:43 | CT ---
EXAMINATION TYPE: CT sinus wo con DATE OF EXAM: 02/02/2023 COMPARISON: 08/06/2022 HISTORY: Chronic sinusitis and deviated septum. CT DLP: 581.4 mGycm. Automated Exposure Control for Dose Reduction was Utilized. TECHNIQUE: CT scan of the sinuses is performed without contrast, axial images are obtained, coronal r eformatted images are also reviewed. There is a nasal septal deviation. FINDINGS: The paranasal sinuses including the frontal, ethmoid, sphenoid, and maxillary sinuses bila terally are well-aerated without abnormal opacification. The ostiomeatal complex is patent bilateral ly on the coronal images. Visualized portion of mastoid air cells show no abnormal opacification. The globes are intact bilate rally. IMPRESSION: 1. The sinuses are clear and the ostiomeatal complex is patent bilaterally. 2. Nasal septal deviation to the right
== END | disposition home or self-care (01) ==
LOC: RADCTMAIN 08:12
PROVIDERS: ATTEND Family Medicine
DX: J34.2 Deviated nasal septum (principal)
CPT/HCPCS: 70486

== ENCOUNTER → 2023-05-03 | Outpatient (CLI) | payer OTHER ==
--- NOTE | 2023-05-03 18:36 | BD ---
EXAMINATION TYPE: Axial Bone Density DATE OF EXAM: 05/03/2023 CLINICAL HISTORY: 52 years old Female. ICD-10 CODE: Z78.0 POST MENOPAUSAL WITHOUT HRT Height: 66.75" Weight: 176.2 FRAX RISK QUESTIONS: Alcohol (3 or more units per day): No Family History (Parent hip fracture): No Glucocorticoids (More than 3mos): No (Ex: prednisone, prednisolone, methylprednisolone, dexamethasone, and hydrocortisone). History of Fracture in Adulthood: Yes, right wrist and forearm Secondary Osteoporosis: 1. Type 1 Diabetes: No 2. Hyperthyroidism: No 3. Menopause before 45: Yes, hysterectomy at 25 4. Malnutrition: No 5. Chronic liver disease: No Rheumatoid Arthritis: No Current Tobacco Use: No RISK FACTORS HISTORY OF: Hip Fracture (Right/Left): No Spine Fracture: No History of Wrist Fracture: Yes When: Right wrist several years ago Surgery to Spine/Hip(right/left)/Wrist (right/left): No Family History of Osteoporosis: No Active: Yes Diet low in dairy products/other sources of calcium: Yes Postmenopausal woman: Yes Lost more than 2 inches in height since high school: No Frequent falls: No Poor Health: No Hyperparathyroidism: No Adrenal Insufficiency: No MEDICATIONS: Prednisone or other steroids: No Thyroid Medications: No Osteoporosis Medications: No Additional Medications: Vitamin C, Vitamin D3, cinnamon supplement, benadryl, Estroven, diabetic medi cine, eye drops for glaucoma, Lyrica, Cymbalta, heart medication Additional History: None EXAM MEASUREMENTS: Bone mineral densitometry was performed using the [employer]aplee System. Bone mineral density as measured about the Lumbar spine is: ----- L1-L4(G/cm2): 1.042 T Score Values are as follows: ----- L1: -1.7 ----- L2: -1.1 ----- L3: -1.2 ----- L4: -0.8 ----- L1-L4: -1.2 Z Score Values are as follows: ----- L1: -1.4 ----- L2: -0.9 ----- L3: -0.9 ----- L4: -0.6 ----- L1-L4: -0.9 Baseline @[facility] Bone mineral density about the R hip (g/cm2): 0.940 Bone mineral density about the L hip (g/cm2): 0.850 T Score values are as follows: -----R Neck: -1.1 -----L Neck: -1.4 -----R Total: -0.5 -----L Total: -1.3 Z Score values are as follows: -----R Neck: -0.5 -----L Neck: -0.7 -----R Total: -0.3 -----L Total: -1.0 Baseline @[facility] FRAX%s: The graph provided illustrates a 10.9% chance for a major osteoporotic fx and a 0.8% chance f or the hips probability for fx in 10 years time. IMPRESSION: Osteopenia (T Score between -2.5 and -1). There is slightly increased risk of fracture and the patient may be considered for treatment. Re-Screen 2-5 years. NOTE: T-SCORE=SD OF THE YOUNG ADULT MEAN.
--- NOTE | 2023-05-04 18:52 | MM ---
Reason for Exam: Screening (asymptomatic). Last mammogram was performed 8 year(s) and 0 month(s) ago. Patient History: Menarche at age 11. First Full-Term at age 23. Left ovary removed at age 33. Right ovary removed at age 33. Hysterectomy at age 25. Postmenopausal. Estrogen for 10 years from age 33 until age 43. 2001, Bilateral Reduction. 1989, Benign Excisional Biopsy on the left side. Benign Excisional Biopsy on the left side. Paternal grandfather had breast cancer, age 70. Risk Values: Brook 5 year model risk: 1.9%. NCI Lifetime model risk: 13.6%. Prior Study Comparison: 03/14/2012 Bilateral Diagnostic Mammogram, [facility]. 08/31/2013 Bilateral Diagnostic Mammogram, [facility]. 05/22/2015 Bilateral Diagnostic Mammogram, [facility]. Tissue Density: There are scattered fibroglandular densities. Findings: Analyzed By CAD. Pattern appears stable. Couple focal asymmetries are within the left breast. No significant interval changes are evident. No suspicious groups of microcalcifications, spiculated or lobular masses, architectural distortion or other secondary signs of malignancy are mammographically apparent. Overall Assessment: Benign, BI-RAD 2 Management: Screening Mammogram of both breasts in 1 year. A negative mammogram report should not preclude additional follow up of suspicious palpable abnormalities. Patient should continue monthly self breast exam. A clinical breast exam by your physician is recommended on an annual basis and results should be correlated with mammographic findings. Electronically signed and approved by: Klaus Frederick D.O. Radiologis
== END | disposition home or self-care (01) ==
LOC: RADMAMWWP 07:59
PROVIDERS: ATTEND Family Medicine
DX: Z12.31 Encounter for screening mammogram for malignant neoplasm of breast (principal); M85.89 Other specified disorders of bone density and structure, multiple sites; Z78.0 Asymptomatic menopausal state; Z80.3 Family history of malignant neoplasm of breast
CPT/HCPCS: 77063; 77067; 77080

== ENCOUNTER 2023-08-23 06:51 | Day surgery (SDC) | payer OTHER ==
[2023-08-22 08:57] VITALS: BMI 27.1
[2023-08-23 07:28] LABS: Glucose,Whole Blood 88 mg/dL (70-110)
[2023-08-23 07:30] VITALS: TEMP 97.9
[2023-08-23] MEDS ORDERED: PROPOFOL 10 MG/ML 20 ML VIAL IV ONE (08:14)
--- NOTE | 2023-08-23 08:31 | P.PCN ---
Date of Procedure: 08/23/23 Procedure(s) Performed: BRIEF HISTORY: Patient is a 52-year-old pleasant white female scheduled for an elective colonoscopy as a part of evaluation change in bowel habits. PROCEDURE PERFORMED: Colonoscopy with biopsy. PREOPERATIVE DIAGNOSIS: Change in bowel habits. IV sedation per Anesthesia. PROCEDURE: After informed consent was obtained, the patient, was brought into the endoscopy unit. IV sedation was administered by Anesthesia under continuous monitoring. Digital rectal examination was normal. Initially the Olympus CF-160 flexible video colonoscope was then inserted in the rectum, gradually advanced into the cecum without any difficulty. Careful examination was performed as the scope was gradually being withdrawn. Ileocecal valve and the appendiceal orifice were visualized and appeared normal. Prep was excellent. Mucosa of the cecum, ascending colon, appeared normal. The transverse colon there was a 3-4 mm sessile polyp that was removed by cold biopsy. transverse colon, descending colon, sigmoid colon, and rectum appeared normal. Retroflexion was performed in the rectum and no lesions were seen. The patient tolerated the procedure well. IMPRESSION: 3 to 4 mm sessile transverse colon polyp status post cold biopsy Rest of the colon appeared normal RECOMMENDATIONS: Findings of this examination were discussed with the patient as well as her family. She was advised to follow with the biopsy results. If the biopsy result adenoma she can have a repeat colonoscopy in 5 years. In the meantime she was advised to be a high-fiber diet and take fiber supplement a regular basis and use osmotic laxatives as needed..
[2023-08-23] MEDS: ONDANSETRON 4 MG/2 ML VIAL ONE ×2 (09:02→09:03)
[2023-08-23 09:15] LABS: Glucose,Whole Blood 94 mg/dL (70-110)
[2023-08-23 09:23] VITALS: BP 106/70; PULSE 75; RESP 18
== END 2023-08-23 09:36 | disposition home or self-care (01) ==
LOC: ORWHC2ENDO 06:51
PROVIDERS: ATTEND Internal Medicine Gastroenterology
DX: K63.5 Polyp of colon (principal); E78.5 Hyperlipidemia, unspecified; E11.9 Type 2 diabetes mellitus without complications; K21.9 Gastro-esophageal reflux disease without esophagitis; Z79.899 Other long term (current) drug therapy; Z88.0 Allergy status to penicillin; Z88.1 Allergy status to other antibiotic agents; Z88.5 Allergy status to narcotic agent; Z88.8 Allergy status to other drugs, medicaments and biological substances; Z79.4 Long term (current) use of insulin
CPT/HCPCS: 45380; J2405; J2704; 88305

== ENCOUNTER 2024-01-08 17:53 | Emergency (ER) | payer OTHER ==
--- NOTE | 2024-01-08 18:17 | ED ---
Nausea/Vomiting/Diarrhea HPI - General Chief complaint: Nausea/Vomiting/Diarrhea Stated complaint: Diabetic, high blood sugar Time Seen by Provider: 01/08/24 18:03 Source: patient Mode of arrival: ambulatory Limitations: no limitations - History of Present Illness Initial comments: 53-year-old female with history of diabetes, hyperlipidemia, seizure disorder, hypothyroidism presenting with chief complaint of nausea and vomiting. Symptoms have been ongoing since . Patient also states that her blood sugar has been consistently in the range of 250-300. She is a self admitted uncontrolled diabetic. She admits to diffuse abdominal soreness from her vomiting. Admits to diarrhea. Admits to some chest discomfort and shortness of breath as well. The patient feels extremely fatigued. She states "I am very dehydrated". - Related Data Home Medications Medication Instructions Recorded Confirmed Pregabalin [Lyrica] 75 mg PO HS 05/28/15 08/23/23 Propranolol [Inderal] 40 mg PO HS 05/28/15 08/23/23 Insulin Degludec [Tresiba 90 units SQ HS 03/19/19 08/23/23 Flextouch U-200 Pen] DULoxetine HCL [Cymbalta] 60 mg PO HS 06/16/22 08/23/23 Ascorbic Acid [Vitamin C chew] 250 mg PO HS 08/22/23 08/23/23 Calcium Gummie 1 dose PO DAILY 08/22/23 08/23/23 Cholecalciferol (Vitamin D3) 100 mcg PO HS 08/22/23 08/23/23 [Vitamin D3 (50 Mcg = 2000 Iu) Chew Tab] Cinnamon Bark [Cinnamon] 1,000 mg PO HS 08/22/23 08/23/23 Latanoprost Ophth [Xalatan 0.005%] 1 drops BOTH EYES HS 08/22/23 08/23/23 Melatonin 10 mg PO HS 08/22/23 08/23/23 Multivitamin Gummie W/ Probiot 1 dose PO DAILY 08/22/23 08/23/23 Mv-Mn/FA/Bl Coh/Isoflav/Jujube 1 each PO HS 08/22/23 08/23/23 [Estroven Menopause Caplet] diphenhydrAMINE [Benadryl] 25 mg PO HS 08/22/23 08/23/23 Previous Rx's Medication Instructions Recorded Benzonatate [Tessalon Perles] 100 mg PO TID PRN #9 capsule 01/09/24 Nitrofurantoin Monohyd/M-Cryst 100 mg PO Q12HR 5 Days #10 cap 01/09/24 [Macrobid] Ondansetron Odt [Zofran Odt] 4 mg PO Q8HR PRN #20 tab 01/09/24 Oseltamivir [Tamiflu] 75 mg PO Q12HR 5 Days #10 cap 01/09/24 Allergies Allergy/AdvReac Type Severity Reaction Status Date / Time amoxicillin Allergy Anaphylaxis Verified 01/08/24 17:59 ciprofloxacin HCl Allergy Itching Verified 01/08/24 17:59 [From Cipro] erythromycin base Allergy Swelling Verified 01/08/24 17:59 naproxen Allergy Anaphylaxis Verified 01/08/24 17:59 Penicillins Allergy CHEST PAIN Verified 01/08/24 17:59 AND RASH codeine AdvReac Nausea & Verified 01/08/24 17:59 Vomiting morphine AdvReac HARD TIME Verified 01/08/24 17:59 WAKING UP AND B/P DROPS VERY LOW sulfamethoxazole AdvReac Nausea & Verified 01/08/24 17:59 [From Bactrim] Vomiting tramadol HCl [From Ultram] AdvReac Nausea & Verified 01/08/24 17:59 Vomiting trimethoprim [From Bactrim] AdvReac Nausea & Verified 01/08/24 17:59 Vomiting Review of Systems ROS Statement: Those systems with pertinent positive or pertinent negative responses have been documented in the HPI. ROS Other: All systems not noted in ROS Statement are negative. 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 History of Any Multi-Drug Resistant Organisms: None Reported Past Surgical History: Bladder Surgery, Breast Surgery, Cholecystectomy, Hysterectomy Additional Past Surgical History / Comment(s): breast reduction, bladder suspension Past Anesthesia/Blood Transfusion Reactions: No Reported Reaction Additional Past Anesthesia/Blood Transfusion Reaction / Comment(s): "takes a little longer to wake up with anesthesia". no hx blood transfusion Past Psychological History: Depression Smoking Status: Never smoker Past Alcohol Use History: None Reported Past Drug Use History: None Reported - Past Family History Mother Family Medical History: Cancer, Coronary Artery Disease (CAD), CVA/TIA, Hypertension Additional Family Medical History / Comment(s): colon CA Father Family Medical History: Cancer, Coronary Artery Disease (CAD), Myocardial Infarction (NC) Additional Family Medical History / Comment(s): polycythemia. from massive heart attack age 66 General Exam Limitations: no limitations General appearance: alert, in no apparent distress Head exam: Present: atraumatic, normocephalic Eye exam: Present: normal appearance, EOMI Neck exam: Present: normal inspection. Absent: meningismus Respiratory exam: Present: normal lung sounds bilaterally. Absent: respiratory distress, wheezes, rales, rhonchi, stridor Cardiovascular Exam: Present: regular rate, normal rhythm, normal heart sounds. Absent: systolic murmur, diastolic murmur, rubs, gallop, clicks GI/Abdominal exam: Present: soft, tenderness (diffuse). Absent: distended, guarding, rebound, rigid Neurological exam: Present: alert, oriented X3 Psychiatric exam: Present: normal affect, normal mood Skin exam: Present: warm, dry Course Vital Signs 01/08/24 01/08/24 01/09/24 17:57 22:59 00:24 Temperature 99.0 F 100.6 F H 98 F Pulse Rate 112 H 104 H 96 Respiratory 20 17 17 Rate Blood Pressure 115/80 104/69 102/74 O2 Sat by Pulse 98 91 L 95 Oximetry Medical Decision Making - Medical Decision Making Was pt. sent in by a medical professional or institution (, PA, DRYER OPERATOR, urgent care, hospital, or correction...) When possible be specific @ -No Did you speak to anyone other than the patient for history (EMS, parent, family, police, friend...)? What history was obtained from this source @ -No Did you review nursing and triage notes (agree or disagree)? Why? @ -I reviewed and agree with nursing and triage notes Were old charts reviewed (outside hosp., previous admission, EMS record, old EKG, old radiological studies, urgent care reports/EKG's, correction records)? Report findings @ -No old charts were reviewed Differential Diagnosis (chest pain, altered mental status, abdominal pain women, abdominal pain men, vaginal bleeding, weakness, fever, dyspnea, syncope, headache, dizziness, GI bleed, back pain, seizure, CVA, palpatations, mental health, musculoskeletal)? @ -MDM Differential Weakness: Hypoglycemia, shock, sepsis, hyponatremia, anemia, infection, NC, ETOH, adverse medicine reaction, overdose, stroke. ... This is not meant to be an all- inclusive list EKG interpreted by me (3pts min.). @ -EKG shows sinus rhythm ventricular rate 99. WV interval 152. QRS 92. QT 367. QTc 423. X-rays interpreted by me (1pt min.). @ -Chest x-ray shows no evidence for acute pulmonary disease CT interpreted by me (1pt min.). @ -None done U/S interpreted by me (1pt. min.). @ -None done What testing was considered but not performed or refused? (CT, X-rays, U/S, labs)? Why? @ -None What meds were considered but not given or refused? Why? @ -None Did you discuss the management of the patient with other professionals (professionals i.e. , PA, DRYER OPERATOR, lab, RT, psych nurse, case management social worker, hospitality recruiter, teacher, transport corps officer, case work aide)? Give summary @ -No Was smoking cessation discussed for >3mins.? @ -No Was critical care preformed (if so, how long)? @ -No Were there social determinants of health that impacted care today? How? (Homelessness, low income, unemployed, alcoholism, drug addiction, transportation, low edu. Level, literacy, decrease access to med. care, [facility], rehab)? @ -No Was there de-escalation of care discussed even if they declined (Discuss DNR or withdrawal of care, Hospice)? DNR status @ -No What co-morbidities impacted this encounter? (DM, HTN, Smoking, COPD, CAD, Cancer, CVA, ARF, Chemo, Hep., AIDS, mental health diagnosis, sleep apnea, m orbid obesity)? @ -Diabetes Was patient admitted / discharged? Hospital course, mention meds given and route, prescriptions, significant lab abnormalities, going to OR and other pertinent info. @ -53-year-old female presenting with chief complaint of nausea, vomiting, weakness, fatigue. History and physical exam are conducted. No leukocytosis or anemia. Mild transaminitis. Lipase 482. Negative acetone. Patient is positive for influenza A. Chest x-ray shows no acute process. Urine shows large leukocytes with 12 WBCs. Patient is given IV fluids, antiemetics, antitussives, Tylenol. On reassessment she reports some improvement in her symptoms however she is still quite fatigued. She is educated on today's findings. She would like to be discharged home. She sent a prescription for Tessalon Perles, Zofran, and Tamiflu. While she is out of the traditional Tamiflu window given the severity of her symptoms I believe she could benefit from a course of Tamiflu. Sent Macrobid for UTI. Discharged home. Follow-up with PCP. Report back to ER with any new or worsening symptoms. Discussed return parameters and answered all questions. Patient conveyed verbal understanding and agreed to the plan. I discussed this case in detail with my attending Dr. Sams Undiagnosed new problem with uncertain prognosis? @ -No Drug Therapy requiring intensive monitoring for toxicity (Heparin, Nitro, Insulin, Cardizem)? @ -No Were any procedures done? @ -No Diagnosis/symptom? @ -Influenza, UTI Acute, or Chronic, or Acute on Chronic? @ -Acute Uncomplicated (without systemic symptoms) or Complicated (systemic symptoms)? @ -complicated Side effects of treatment? @ -No Exacerbation, Progression, or Severe Exacerbation? @ -No Poses a threat to life or bodily function? How? (Chest pain, USA, NC, pneumonia, PE, COPD, DKA, ARF, appy, cholecystitis, CVA, Diverticulitis, Homicidal, Suicidal, threat to staff... and all critical care pts) @ -Low likelihood - Lab Data Result diagrams: 01/08/24 18:30 01/08/24 18:30 Lab Results 01/08/24 01/08/24 01/08/24 Range/Units 18:30 18:30 18:30 WBC 4.5 (3.8-10.6) k/uL RBC 5.31 (3.80-5.40) m/uL Hgb 16.0 (11.4-16.0) gm/dL Hct 46.7 H (34.0-46.0) % MCV 88.0 (80.0-100.0) fL MCH 30.2 (25.0-35.0) pg MCHC 34.3 (31.0-37.0) g/dL RDW 13.7 (11.5-15.5) % Plt Count 156 (150-450) k/uL MPV 8.8 Neutrophils % 64 % Lymphocytes % 26 % Monocytes % 6 % Eosinophils % 0 % Basophils % 1 % Neutrophils # 2.9 (1.3-7.7) k/uL Lymphocytes # 1.2 (1.0-4.8) k/uL Monocytes # 0.3 (0-1.0) k/uL Eosinophils # 0.0 (0-0.7) k/uL Basophils # 0.0 (0-0.2) k/uL Sodium 134 L (137-145) mmol/L Potassium 3.5 (3.5-5.1) mmol/L Chloride 106 (98-107) mmol/L Carbon Dioxide 15 L (22-30) mmol/L Anion Gap 13 mmol/L BUN 21 H (7-17) mg/dL Creatinine 0.78 (0.52-1.04) mg/dL Est GFR (CKD-EPI)AfAm >90 (>60 ml/min/1.73 sqM) Est GFR (CKD-EPI)NonAf 86 (>60 ml/min/1.73 sqM) Glucose 239 H (74-99) mg/dL Plasma Lactic Acid Ilia 1.7 (0.7-2.0) mmol/L Calcium 9.0 (8.4-10.2) mg/dL Total Bilirubin 1.2 (0.2-1.3) mg/dL AST 57 H (14-36) U/L ALT 57 H (4-34) U/L Alkaline Phosphatase 72 (38-126) U/L Troponin I (0.000-0.034) ng/mL Total Protein 6.4 (6.3-8.2) g/dL Albumin 4.1 (3.5-5.0) g/dL Amylase 64 (30-110) U/L Lipase 482 H (23-300) U/L Urine Color Urine Appearance (Clear) Urine pH (5.0-8.0) Ur Specific Eminence (1.001-1.035) Urine Protein (Negative) Urine Glucose (UA) (Negative) Urine Ketones (Negative) Urine Blood (Negative) Urine Nitrite (Negative) Urine Bilirubin (Negative) Urine Urobilinogen (<2.0) mg/dL Ur Leukocyte Esterase (Negative) Urine RBC (0-5) /hpf Urine WBC (0-5) /hpf Ur Squamous Epith Cells (0-4) /hpf Urine Bacteria (None) /hpf Urine Mucus (None) /hpf Urine Yeast (Budding) (None) /hpf Acetone, Qual Negative (Negative) Influenza Type A (PCR) (Not Detectd) Influenza Type B (PCR) (Not Detectd) RSV (PCR) (Not Detectd) SARS-CoV-2 (PCR) (Not Detectd) 01/08/24 01/08/24 01/08/24 Range/Units 18:30 18:30 21:45 WBC (3.8-10.6) k/uL RBC (3.80-5.40) m/uL Hgb (11.4-16.0) gm/dL Hct (34.0-46.0) % MCV (80.0-100.0) fL MCH (25.0-35.0) pg MCHC (31.0-37.0) g/dL RDW (11.5-15.5) % Plt Count (150-450) k/uL MPV Neutrophils % % Lymphocytes % % Monocytes % % Eosinophils % % Basophils % % Neutrophils # (1.3-7.7) k/uL Lymphocytes # (1.0-4.8) k/uL Monocytes # (0-1.0) k/uL Eosinophils # (0-0.7) k/uL Basophils # (0-0.2) k/uL Sodium (137-145) mmol/L Potassium (3.5-5.1) mmol/L Chloride (98-107) mmol/L Carbon Dioxide (22-30) mmol/L Anion Gap mmol/L BUN (7-17) mg/dL Creatinine (0.52-1.04) mg/dL Est GFR (CKD-EPI)AfAm (>60 ml/min/1.73 sqM) Est GFR (CKD-EPI)NonAf (>60 ml/min/1.73 sqM) Glucose (74-99) mg/dL Plasma Lactic Acid Ilia (0.7-2.0) mmol/L Calcium (8.4-10.2) mg/dL Total Bilirubin (0.2-1.3) mg/dL AST (14-36) U/L ALT (4-34) U/L Alkaline Phosphatase (38-126) U/L Troponin I <0.012 (0.000-0.034) ng/mL Total Protein (6.3-8.2) g/dL Albumin (3.5-5.0) g/dL Amylase (30-110) U/L Lipase (23-300) U/L Urine Color Yellow Urine Appearance Cloudy H (Clear) Urine pH 5.5 (5.0-8.0) Ur Specific Eminence 1.027 (1.001-1.035) Urine Protein Trace H (Negative) Urine Glucose (UA) Negative (Negative) Urine Ketones Trace H (Negative) Urine Blood Negative (Negative) Urine Nitrite Negative (Negative) Urine Bilirubin Negative (Negative) Urine Urobilinogen <2.0 (<2.0) mg/dL Ur Leukocyte Esterase Large H (Negative) Urine RBC 4 (0-5) /hpf Urine WBC 12 H (0-5) /hpf Ur Squamous Epith Cells 3 (0-4) /hpf Urine Bacteria Moderate H (None) /hpf Urine Mucus Few H (None) /hpf Urine Yeast (Budding) Occasional H (None) /hpf Acetone, Qual (Negative) Influenza Type A (PCR) Detected A (Not Detectd) Influenza Type B (PCR) Not Detected (Not Detectd) RSV (PCR) Not Detected (Not Detectd) SARS-CoV-2 (PCR) Not Detected (Not Detectd) Disposition Clinical Impression: Influenza, UTI (urinary tract infection) Disposition: HOME SELF-CARE Condition: Fair Instructions (If sedation given, give patient instructions): Influenza (ED) Additional Instructions: Follow-up with your PCP. Report back to ER with any new or worsening symptoms. Prescriptions: Nitrofurantoin Monohyd/M-Cryst [Macrobid] 100 mg PO Q12HR 5 Days #10 cap Oseltamivir [Tamiflu] 75 mg PO Q12HR 5 Days #10 cap Benzonatate [Tessalon Perles] 100 mg PO TID PRN #9 capsule PRN Reason: Cough Ondansetron Odt [Zofran Odt] 4 mg PO Q8HR PRN #20 tab PRN Reason: Nausea Is patient prescribed a controlled substance at d/c from ED?: No Referrals: Nataly Jones DO [Primary Care Provider] - 1-2 days Time of Disposition: 00:14
[2024-01-08] MEDS: SODIUM CHLORIDE 0.9% 1,000 ML IV STA (18:25)
[2024-01-08] MEDS: ONDANSETRON 4 MG/2 ML VIAL IVP STA (18:25)
[2024-01-08 18:49] LABS: Basophils % (A) 1 %; Eosinophils % (A) 0 %; HCT 46.7 % (34.0-46.0); Lymphocytes # (A) 1.2 k/uL (1.0-4.8); Lymphocytes % (A) 26 %; MCH 30.2 pg (25.0-35.0); MCHC 34.3 g/dL (31.0-37.0); Mean Platelet Volume 8.8; Monocytes # (A) 0.3 k/uL (0-1.0); Monocytes % (A) 6 %; Neutrophils # (A) 2.9 k/uL (1.3-7.7); Neutrophils % (A) 64 %; Platelet Count 156 k/uL (150-450); RBC 5.31 m/uL (3.80-5.40); RDW 13.7 % (11.5-15.5); WBC 4.5 k/uL (3.8-10.6)
[2024-01-08 19:01] LABS: ALT 57 U/L (4-34); AST 57 U/L (14-36); African American GFR (CKD) >90 (>60 ml/min/1.73 sqM); Albumin 4.1 g/dL (3.5-5.0); Alkaline Phosphatase 72 U/L (38-126); Amylase 64 U/L (30-110); Anion Gap 13 mmol/L; Blood Urea Nitrogen 21 mg/dL (7-17); Carbon Dioxide 15 mmol/L (22-30); Chloride 106 mmol/L (98-107); Glucose 239 mg/dL (74-99); Lipase 482 U/L (23-300); Non-African American GFR(CKD) 86 (>60 ml/min/1.73 sqM); Potassium 3.5 mmol/L (3.5-5.1); Sodium 134 mmol/L (137-145); Total Bilirubin 1.2 mg/dL (0.2-1.3); Total Protein 6.4 g/dL (6.3-8.2)
[2024-01-08] MEDS: METOCLOPRAMIDE 5 MG/ML 2 ML VIAL IVP STA (20:57)
[2024-01-08] MEDS: BENZONATATE 100 MG CAP PO STA (21:23)
--- NOTE | 2024-01-08 21:24 | XR ---
EXAMINATION TYPE: XR chest 2V DATE OF EXAM: 01/08/2024 COMPARISON: 06/16/2022 HISTORY: Shortness of breath TECHNIQUE: Frontal and lateral views of the chest are obtained. FINDINGS: Scattered senescent parenchymal changes noted. Hyperinflation compatible with COPD. No evidence for infiltrate. No evidence for atelectasis. Heart size is stable. Mediastinal structures are stable and grossly unremarkable. No evidence for hilar prominence. Degenerative changes dorsal spine. IMPRESSION: 1. No evidence for acute pulmonary disease.
[2024-01-08 23:11] VITALS: RESP 17
[2024-01-08 23:16] LABS: Appearance,Urine Cloudy (Clear); Bacteria,Urine Moderate /hpf; Bilirubin,Urine Negative (Negative); Blood,Urine Negative (Negative); Budding Yeast,Urine Occasional /hpf; Color,Urine Yellow; Glucose,Urine (UA) Negative (Negative); Ketones,Urine Trace (Negative); Leukocyte Esterase,Urine Large (Negative); Mucus,Urine Few /hpf; Nitrite,Urine Negative (Negative); PH, Urine 5.5 (5.0-8.0); Protein,Urine Trace (Negative); RBC,Urine 4 /hpf (0-5); Specific Gravity,Urine 1.027 (1.001-1.035); Squamous Epithelial Cell,Urine 3 /hpf (0-4); Urobilinogen,Urine <2.0 mg/dL (<2.0); WBC,Urine 12 /hpf (0-5)
[2024-01-08] MEDS: OSELTAMIVIR 75 MG CAP PO STA (23:28)
[2024-01-08] MEDS: ACETAMINOPHEN TAB 500 MG TAB PO STA (23:28)
[2024-01-08] MEDS: SODIUM CHLORIDE 0.9% 1,000 ML IV ONE (23:31)
[2024-01-09] MEDS: ONDANSETRON 4 MG ODT STARTER PACK 2 TAB BTL PO STA (00:41)
[2024-01-09 00:46] VITALS: BP 102/74; PULSE 96; TEMP 98
== END 2024-01-09 00:41 | disposition home or self-care (01) ==
LOC: EC 17:53
DX: N39.0 Urinary tract infection, site not specified (principal); J10.1 Influenza due to other identified influenza virus with other respiratory manifestations; B95.0 Streptococcus, group A, as the cause of diseases classified elsewhere; Z88.0 Allergy status to penicillin; Z88.1 Allergy status to other antibiotic agents; Z88.2 Allergy status to sulfonamides; Z88.5 Allergy status to narcotic agent; Z88.8 Allergy status to other drugs, medicaments and biological substances; Z86.16 Personal history of COVID-19; Z90.49 Acquired absence of other specified parts of digestive tract
CPT/HCPCS: 36415; 93005; 80053; 82150; 82009; 83605; 83690; 84484; 85025; 81001; 87636; 71046; 99284; 96374; 96375; 96361 ×6; J2765; J2405; S0119

== ENCOUNTER → 2024-05-30 | Outpatient (CLI) | payer OTHER ==
[2024-05-30 15:17] LABS: HCT 48.6 % (37.2-46.3); HGB 15.5 g/dL (12.0-15.0); MCHC 31.9 g/dL (32.0-37.0); MCV 90.8 FL (80.0-97.0); Mean Platelet Volume 10.9 FL (9.5-12.2); NRBC Per 100 WBC 0 X 10*3/uL (0.00-0.01); Platelet Count 235 X 10*3/uL (140-440); RBC 5.35 X 10*6/uL (4.10-5.20); RDW 13.2 % (11.5-14.5); WBC 6.89 X 10*3/uL (4.50-10.00)
[2024-05-30 16:19] LABS: ALT 23 U/L (8-44); AST 19 U/L (13-35); Albumin 4.5 g/dL (3.8-4.9); Albumin/Globulin Ratio 2.25 Ratio (1.60-3.17); Alkaline Phosphatase 102 U/L (41-126); Blood Urea Nitrogen 10.8 mg/dL (9.0-27.0); Calcium 9.9 mg/dL (8.7-10.3); Carbon Dioxide 24.8 mmol/L (21.6-31.8); Chloride 108 mmol/L (96-109); Chol/HDL Ratio 4.42 Ratio; Glucose 76 mg/dL (70-110); LDL Cholesterol,Calculated 115.8 mg/dL (0.0-131.0); Potassium 4.6 mmol/L (3.5-5.5); Sodium 146 mmol/L (135-145); T4, Free (Free Thyroxine) 0.99 ng/dL (0.80-1.80); Total Bilirubin 0.9 mg/dL (0.3-1.2); Total Protein 6.5 g/dL (6.2-8.2)
== END ==
LOC: LABWHC1 11:05
PROVIDERS: ATTEND Family Medicine
DX: I10 Essential (primary) hypertension (principal); E03.9 Hypothyroidism, unspecified; E78.5 Hyperlipidemia, unspecified; E11.9 Type 2 diabetes mellitus without complications; M85.80 Other specified disorders of bone density and structure, unspecified site
CPT/HCPCS: 36415; 80053; 80061; 82043; 82306; 82570; 83036; 84439; 84443; 85027

== ENCOUNTER → 2024-08-08 | Outpatient (CLI) | payer OTHER ==
[2024-08-08 15:29] LABS: BUN/Creat Ratio 14.88 Ratio (12.00-20.00); Blood Urea Nitrogen 11.9 mg/dL (9.0-27.0); Calcium 9.7 mg/dL (8.7-10.3); Carbon Dioxide 27.9 mmol/L (21.6-31.8); Chloride 105 mmol/L (96-109); Glucose 200 mg/dL (70-110); Potassium 4.6 mmol/L (3.5-5.5); Sodium 143 mmol/L (135-145)
== END | disposition home or self-care (01) ==
LOC: LABWHC1 09:04
PROVIDERS: ATTEND Family Medicine
DX: E11.9 Type 2 diabetes mellitus without complications (principal)
CPT/HCPCS: 36415; 80048

== ENCOUNTER → 2024-10-01 | Outpatient (CLI) | payer OTHER ==
[2024-10-01 16:13] LABS: Appearance,Urine Clear (Clear); Bacteria,Urine None Seen (None Seen); Bilirubin,Urine Negative (Negative); Blood,Urine Negative (Negative); Color,Urine Yellow (Yellow); Ketones,Urine Negative (Negative); Nitrite,Urine Negative (Negative); Specific Gravity,Urine >1.035 (1.001-1.030); Urobilinogen,Urine 0.2; Yeast (UA) Present (None Seen)
== END | disposition home or self-care (01) ==
LOC: LABWHC1 10:52
PROVIDERS: ATTEND Family Medicine
DX: R30.0 Dysuria (principal)
CPT/HCPCS: 81001; 87086

== ENCOUNTER 2024-11-19 11:35 | Emergency (ER) | payer OTHER ==
[2024-11-19 12:19] LABS: Basophils % (A) 0 %; Eosinophils # (A) 0.1 k/uL (0-0.7); Eosinophils % (A) 1 %; HCT 45.7 % (34.0-46.0); HGB 15.3 gm/dL (11.4-16.0); Lymphocytes # (A) 0.9 k/uL (1.0-4.8); Lymphocytes % (A) 12 %; MCH 29.3 pg (25.0-35.0); MCHC 33.5 g/dL (31.0-37.0); MCV 87.6 fL (80.0-100.0); Mean Platelet Volume 7.9; Monocytes # (A) 0.4 k/uL (0-1.0); Monocytes % (A) 5 %; Neutrophils # (A) 5.9 k/uL (1.3-7.7); Neutrophils % (A) 80 %; Platelet Count 189 k/uL (150-450); RBC 5.22 m/uL (3.80-5.40); RDW 12.8 % (11.5-15.5); WBC 7.4 k/uL (3.8-10.6)
--- NOTE | 2024-11-19 12:27 | ED ---
Chest Pain HPI - General Chief Complaint: Chest Pain Stated Complaint: Chest pain,flu symptoms Time Seen by Provider: 11/19/24 12:27 Source: patient Mode of arrival: ambulatory Limitations: no limitations - History of Present Illness Initial Comments: 54-year-old female presenting with chief complaint of chest pain and epigastric pain. Pain started this morning. Seems it may be due to her hiatal hernia. Patient has also been experiencing nausea vomiting and diarrhea that started earlier today. Her friend came over and found that she was not feeling well so she called 911. Patient is curled up in a ball in pain. No blood in her emesis or stool. No known fever. She is also having flulike symptoms. No difficulty breathing. - Related Data Home Medications Medication Instructions Recorded Confirmed Propranolol [Inderal] 40 mg PO HS 05/28/15 11/19/24 Insulin Degludec [Tresiba 35 units SQ BID 03/19/19 11/19/24 Flextouch U-200 Pen] DULoxetine HCL [Cymbalta] 60 mg PO HS 06/16/22 11/19/24 Cholecalciferol (Vitamin D3) 100 mcg PO HS 08/22/23 11/19/24 [Vitamin D3 (50 Mcg = 2000 Iu) Chew Tab] Cinnamon Bark [Cinnamon] 1,500 mg PO HS 08/22/23 11/19/24 Latanoprost Ophth [Xalatan 0.005%] 1 drops BOTH EYES HS 08/22/23 11/19/24 Ascorbic Acid [Vitamin C] 500 mg PO HS 11/19/24 11/19/24 Atorvastatin [Lipitor] 40 mg PO HS 11/19/24 11/19/24 Calcium Carbonate/Vitamin D3 2 tab PO HS 11/19/24 11/19/24 [Calcium 600-Vit D3 10 mcg (400 Iu)] Insulin Aspart [NovoLOG Flexpen] 2 units SQ AC-TID 11/19/24 11/19/24 Insulin Aspart [NovoLOG Flexpen] See Protocol SQ AC-TID 11/19/24 11/19/24 L.acidoph,Paracasei, B.lactis 2 cap PO HS 11/19/24 11/19/24 [Probiotic] Melatonin 10 mg PO HS 11/19/24 11/19/24 lisinopriL [Zestril] 2.5 mg PO HS 11/19/24 11/19/24 Previous Rx's Medication Instructions Recorded Ondansetron Odt [Zofran Odt] 4 mg PO Q8HR PRN #20 tab 11/19/24 Allergies Allergy/AdvReac Type Severity Reaction Status Date / Time amoxicillin Allergy Anaphylaxis Verified 11/19/24 20:46 ciprofloxacin HCl Allergy Itching Verified 11/19/24 20:46 [From Cipro] erythromycin base Allergy Swelling Verified 11/19/24 20:46 naproxen Allergy Anaphylaxis Verified 11/19/24 20:46 Penicillins Allergy CHEST PAIN Verified 11/19/24 20:46 AND RASH codeine AdvReac Nausea & Verified 11/19/24 20:46 Vomiting morphine AdvReac HARD TIME Verified 11/19/24 20:46 WAKING UP AND B/P DROPS VERY LOW sulfamethoxazole AdvReac Nausea & Verified 11/19/24 20:46 [From Bactrim] Vomiting tramadol HCl [From Ultram] AdvReac Nausea & Verified 11/19/24 20:46 Vomiting trimethoprim [From Bactrim] AdvReac Nausea & Verified 11/19/24 20:46 Vomiting Review of Systems ROS Statement: Those systems with pertinent positive or pertinent negative responses have been documented in the HPI. ROS Other: All systems not noted in ROS Statement are negative. 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 History of Any Multi-Drug Resistant Organisms: None Reported Past Surgical History: Bladder Surgery, Breast Surgery, Cholecystectomy, Hysterectomy Additional Past Surgical History / Comment(s): breast reduction, bladder suspension Past Anesthesia/Blood Transfusion Reactions: No Reported Reaction Additional Past Anesthesia/Blood Transfusion Reaction / Comment(s): "takes a little longer to wake up with anesthesia". no hx blood transfusion Past Psychological History: Depression Smoking Status: Never smoker Past Alcohol Use History: None Reported Past Drug Use History: None Reported - Past Family History Mother Family Medical History: Cancer, Coronary Artery Disease (CAD), CVA/TIA, Hypertension Additional Family Medical History / Comment(s): colon CA Father Family Medical History: Cancer, Coronary Artery Disease (CAD), Myocardial Infarction (OR) Additional Family Medical History / Comment(s): polycythemia. from massive heart attack age 66 General Exam - General Exam Comments Initial Comments: Visual Physical Exam Vital signs reviewed General: Well-appearing, nontoxic, no acute distress. Head: Normocephalic, atraumatic Eyes: PERRLA, EOMI ENT: Airway patent Chest: Nonlabored breathing Skin: No visual rash, normal skin tone Neuro: Alert and oriented 3 Musculoskeletal: No gross abnormalities Limitations: no limitations General appearance: alert, other (in pain) Head exam: Present: atraumatic, normocephalic, normal inspection Eye exam: Present: normal appearance, PERRL, EOMI Neck exam: Present: normal inspection. Absent: meningismus Respiratory exam: Present: normal lung sounds bilaterally. Absent: respiratory distress, wheezes, rales, rhonchi, stridor Cardiovascular Exam: Present: regular rate, normal rhythm, normal heart sounds. Absent: systolic murmur, diastolic murmur, rubs, gallop, clicks GI/Abdominal exam: Present: soft, tenderness (diffuse). Absent: distended, guarding, rebound, rigid Neurological exam: Present: alert, oriented X3 Expanded Eye Response: (4) open spontaneously Motor Response: (6) obeys commands Verbal Response: (5) oriented [place] Total: 15 Psychiatric exam: Present: normal affect, normal mood Skin exam: Present: warm, dry, normal color Course Vital Signs 11/19/24 11/19/24 11:53 21:47 Temperature 97.8 F 97.7 F Pulse Rate 116 H 75 Respiratory 18 16 Rate Blood Pressure 110/78 129/79 O2 Sat by Pulse 98 97 Oximetry Chest Pain MDM - MDM I performed the quick note portion of this visit, electronically signed Mervin Cagle PA-C Was pt. sent in by a medical professional or institution ([facility], [employer], urgent care, hospital, or skilled nursing...) When possible be specific @ -No Did you speak to anyone other than the patient for history (EMS, parent, family, police, friend...)? What history was obtained from this source @ -Friend Did you review nursing and triage notes (agree or disagree)? Why? @ -I reviewed and agree with nursing and triage notes Were old charts reviewed (outside hosp., previous admission, EMS record, old EKG, old radiological studies, urgent care reports/EKG's, skilled nursing records)? Report findings @ -No old charts were reviewed Differential Diagnosis (chest pain, altered mental status, abdominal pain women, abdominal pain men, vaginal bleeding, weakness, fever, dyspnea, syncope, headache, dizziness, GI bleed, back pain, seizure, CVA, palpatations, mental health, musculoskeletal)? @ -[facility] Differential Abdominal Pain Women: Appendicitis, Cholecystitis, diverticulosis, ischemic bowel, pancreatitis, hepatitis, UTI, gastroenteritis, AAA, incarcerated hernia, bowel obstruction, constipation, inflammatory bowel, hepatitis, peptic ulcer disease, splenic infarction, perforated viscus, vulvitis, ovarian torsion, PID, kidney stone, placenta abruption... This is not meant to be an all-inclusive list EKG interpreted by me (3pts min.). @ -EKG shows sinus tachycardia ventricular rate 115. GA interval 150. QRS 92. QT 396. QTc 464 X-rays interpreted by me (1pt min.). @ -Chest x-ray shows fullness in the right hilar region suspicious for underlying lymphadenopathy. Additional workup with contrast CT is recommended CT interpreted by me (1pt min.). @ -CT shows no suspicious lung nodules or focal infiltrates. No enlarged mediastinal or hilar adenopathy. Fluid-filled distal small bowel loops and multiple air-fluid levels scattered through the colon. Findings appear suggestive for gastroenteritis. U/S interpreted by me (1pt. min.). @ -Ultrasound shows no acute ultrasound abnormality of the right upper quadrant What testing was considered but not performed or refused? (CT, X-rays, U/S, labs)? Why? @ -None What meds were considered but not given or refused? Why? @ -None Did you discuss the management of the patient with other professionals (professionals i.e. , PA, [employer], lab, RT, psych nurse, drug abuse social worker, solar systems designer, teacher, ordnance corps officer, therapeutic case manager)? Give summary @ -No Was smoking cessation discussed for >3mins.? @ -No Was critical care preformed (if so, how long)? @ -No Were there social determinants of health that impacted care today? How? (Homelessness, low income, unemployed, alcoholism, drug addiction, transportation, low edu. Level, literacy, decrease access to med. care, nursing home, rehab)? @ -No Was there de-escalation of care discussed even if they declined (Discuss DNR or withdrawal of care, Hospice)? DNR status @ -No What co-morbidities impacted this encounter? (DM, HTN, Smoking, COPD, CAD, Cancer, CVA, ARF, Chemo, Hep., AIDS, mental health diagnosis, sleep apnea, morbid obesity)? @ -None Was patient admitted / discharged? Hospital course, mention meds given and route, prescriptions, significant lab abnormalities, going to OR and other pertinent info. @ -54-year-old female presenting with chief complaint of epigastric pain and lower chest pain. Accompanied by nausea vomiting diarrhea and flulike symptoms. Symptoms started today. Workup is initiated by triage. Patient is later placed in a hallway bed and evaluated by myself. She is treated with pain medication, antiemetics, and IV fluids. No leukocytosis or anemia. Negative troponins x 2. Elevated bilirubin, AST, ALT, alkaline phosphatase. Patient does have history of cholecystectomy. She does not drink alcohol. CT is suggestive of gastroenteritis. No acute abnormality seen on ultrasound. Likely secondary to dehydration and persistent vomiting. On reassessment patient is feeling much better. She is educated on today's findings and management plan. She is instructed to follow-up with her PCP and have her labs rechecked to ensure that they are coming back down to normal. Follow-up with PCP. Report back to ER with any new or worsening symptoms. Discussed return parameters and answered all questions. Patient conveyed verbal understanding and agreed to the plan. I discussed this case in detail with my attending Dr. Smyth Undiagnosed new problem with uncertain prognosis? @ -No Drug Therapy requiring intensive monitoring for toxicity (Heparin, Nitro, Insulin, Cardizem)? @ -No Were any procedures done? @ -No Diagnosis/symptom? @ -Gastroenteritis Acute, or Chronic, or Acute on Chronic? @ -Acute Uncomplicated (without systemic symptoms) or Complicated (systemic symptoms)? @ -Complicated Side effects of treatment? @ -No Exacerbation, Progression, or Severe Exacerbation? @ -No Poses a threat to life or bodily function? How? (Chest pain, [place], OR, pneumonia, PE, COPD, DKA, ARF, appy, cholecystitis, CVA, Diverticulitis, Homicidal, S uicidal, threat to staff... and all critical care pts) @ -Low likelihood Disposition Clinical Impression: Gastroenteritis Disposition: HOME SELF-CARE Condition: Good Instructions (If sedation given, give patient instructions): Gastroenteritis (ED) Additional Instructions: Follow-up with your PCP. You will have to have your labs redrawn to ensure that your values have gone back down to normal. Follow-up with gastroenterology. Report back to ER with any new or worsening symptoms. Prescriptions: Ondansetron Odt [Zofran Odt] 4 mg PO Q8HR PRN #20 tab PRN Reason: Nausea Is patient prescribed a controlled substance at d/c from ED?: No Referrals: Klaus Ruth DO [Primary Care Provider] - 1-2 days Naina Spencer MD [STAFF PHYSICIAN] - 1-2 days Time of Disposition: 22:42
[2024-11-19 12:31] LABS: ALT 206 U/L (4-34); AST 433 U/L (14-36); African American GFR (CKD) >90 (>60 ml/min/1.73 sqM); Alkaline Phosphatase 253 U/L (38-126); Anion Gap 16 mmol/L; Blood Urea Nitrogen 14 mg/dL (7-17); Calcium 9.2 mg/dL (8.4-10.2); Carbon Dioxide 13 mmol/L (22-30); Chloride 103 mmol/L (98-107); Glucose 269 mg/dL (74-99); Magnesium 1.7 mg/dL (1.6-2.3); Non-African American GFR(CKD) >90 (>60 ml/min/1.73 sqM); Potassium 3.5 mmol/L (3.5-5.1); Sodium 132 mmol/L (137-145); Total Bilirubin 3.9 mg/dL (0.2-1.3); Total Protein 6.3 g/dL (6.3-8.2)
--- NOTE | 2024-11-19 12:52 | XR ---
EXAMINATION TYPE: XR chest 2V DATE OF EXAM: 11/19/2024 12:33 PM COMPARISON: 11/18/2024 , 01/08/2024 CLINICAL INDICATION: Female, 54 years old with history of Chest Pain, TECHNIQUE: XR chest 2V view(s) obtained. FINDINGS: The heart size is normal. The pulmonary vasculature is normal. The lungs are clear. There is some nodularity at the right hilum suspicious for underlying masses or lymphadenopathy. Additional workup with chest CT is recommended. IMPRESSION: 1. Fullness in the right hilar region suspicious for underlying lymphadenopathy or mass. Additional w orkup with contrast CT is recommended. [facility], , 11/19/2024 12:49 PM
[2024-11-19 15:30] LABS: Glucose,Whole Blood 238 mg/dL (70-110)
[2024-11-19] MEDS: SODIUM CHLORIDE 0.9% 1,000 ML IV ONE (18:39)
[2024-11-19] MEDS: ONDANSETRON 4 MG/2 ML VIAL IVP STA (18:41)
[2024-11-19] MEDS: HYDROmorphone 1 MG/ML 1 ML SYRINGE IVP STA (18:42)
--- NOTE | 2024-11-19 20:13 | CT ---
EXAMINATION TYPE: CT ChestAbdPelvis w con DATE OF EXAM: 11/19/2024 7:34 PM COMPARISON: 04/23/2020 CLINICAL INDICATION: Female, 54 years old with history of pain, chest and abdominal pain, hernia TECHNIQUE: CT ChestAbdPelvis w con , with sagittal coronal reformats. If MIP/3-D images were created, there are created on a separate workstation. Contrast used:100 mL of Isovue 300 with IV Contrast, (none if empty) Oral contrast used: without Oral Contrast (none if empty) CT DLP: 931.5 mGycm, Automated exposure control for dose reduction was used. FINDINGS: CT CHEST: Portion of the thyroid visualized is normal. No suspicious lung nodules or focal infiltrates are present. No enlarged mediastinal or hilar adenopathy is evident. The ascending aorta diameter at the level of the main pulmonary artery is 3.9 cm. The main pulmonary artery diameter at the bifurcation is 2.[address] ABDOMEN: Liver: Normal Spleen: Normal Pancreas: Mild atrophic Adrenal glands: The adrenal glands are normal. Gallbladder: Surgically absent Kidneys: No masses are evident. No hydronephrosis is present. Couple cortical renal cysts are prese nt bilaterally. Delayed images were obtained through the kidneys, which remain unremarkable. Punctat e calcification without obstruction is in the mid posterior left kidney measuring 0.3 cm Aorta: Normal Inferior vena cava: Normal. CT PELVIS: There are multiple air-fluid levels within loops of the colon. Small bowel appears nondilated. Small amount of fluid is within the distal small bowel loops. Correlate for gastroenteritis. Appendix: Normal as visualized Urinary bladder: Decompressed with limited evaluation Genitourinary structures: Uterus and ovaries are not identified Osseous structures: No suspicious lytic or sclerotic lesions. IMPRESSION: 1. Fluid-filled distal small bowel loops and multiple air-fluid levels scattered through the colon. F indings appear suggestive for gastroenteritis. Clinical correlation is recommended. [facility], , 11/19/2024 8:11 PM
--- NOTE | 2024-11-19 21:49 | US ---
EXAMINATION TYPE: US abdomen limited DATE OF EXAM: 11/19/2024 COMPARISON: CT today CLINICAL INDICATION: Female, 54 years old with history of RUQ pain; RUQ pain and nausea since [place]atur[place] TECHNIQUE: Grayscale and color Doppler imaging of the right upper quadrant was performed. FINDINGS: EXAM MEASUREMENTS: Liver Length: 12.6 cm Gallbladder Wall: Surgically absent cm CBD: 0.5 cm Right Kidney: 10.5 x 5.1 x 4.3 cm PACKING ROOM SUPERVISOR NOTES:Slightly limited due to overlying gas Pancreas: visualized portions appear echogenic Liver: wnl Gallbladder: Surgically absent Evidence for sonographic Johnson's sign: no CBD: wnl Right Kidney: wnl IMPRESSION: No acute ultrasound abnormality right upper quadrant. [facility], , 11/19/2024 9:47 PM
[2024-11-19 21:54] VITALS: BP 129/79; PULSE 75; RESP 16; TEMP 97.7
[2024-11-19] MEDS: METOCLOPRAMIDE 5 MG/ML 2 ML VIAL IVP STA (22:01)
[2024-11-19] MEDS: HYDROmorphone 0.5 MG/0.5 ML SYRINGE IVP STA (22:54)
== END 2024-11-19 23:10 | disposition home or self-care (01) ==
LOC: EC 11:35
DX: K52.9 Noninfective gastroenteritis and colitis, unspecified (principal); R17 Unspecified jaundice; R74.01 Elevation of levels of liver transaminase levels; R74.02 Elevation of levels of lactic acid dehydrogenase [LDH]; R00.0 Tachycardia, unspecified; Z86.16 Personal history of COVID-19; Z88.0 Allergy status to penicillin; Z88.1 Allergy status to other antibiotic agents; Z88.6 Allergy status to analgesic agent; Z88.5 Allergy status to narcotic agent; Z88.2 Allergy status to sulfonamides
CPT/HCPCS: 36415; 93005; 80053; 83605; 83735; 84484; 85025; 85610; 85730; 71046; 76705; 71260; 74177; 99285; 96374; 96375 ×2; 96376; 96361; J2765; J2405; J1171 ×2; Q9967

== ENCOUNTER → 2025-02-01 | Outpatient (CLI) | payer OTHER ==
[2025-02-01 15:07] LABS: Basophils # (A) 0.05 X 10*3/uL (0.00-0.10); Basophils % (A) 0.6 %; Eosinophils # (A) 0.33 X 10*3/uL (0.04-0.35); HCT 48.2 % (37.2-46.3); HGB 15.5 g/dL (12.0-15.0); Lymphocytes # (A) 2.04 X 10*3/uL (0.90-5.00); Lymphocytes % (A) 24.5 %; MCH 28.9 pg (27.0-32.0); MCHC 32.2 g/dL (32.0-37.0); MCV 89.8 FL (80.0-97.0); Mean Platelet Volume 10.5 FL (9.5-12.2); Monocytes # (A) 0.45 X 10*3/uL (0.20-1.00); Monocytes % (A) 5.4 %; NRBC Per 100 WBC 0 X 10*3/uL (0.00-0.01); Neutrophils # (A) 5.42 X 10*3/uL (1.80-7.70); Neutrophils % (A) 64.9 %; Platelet Count 271 X 10*3/uL (140-440); RBC 5.37 X 10*6/uL (4.10-5.20); RDW 13.4 % (11.5-14.5); WBC 8.34 X 10*3/uL (4.50-10.00)
[2025-02-01 16:01] LABS: ALT 27 U/L (8-44); AST 18 U/L (13-35); BUN/Creat Ratio 23.88 Ratio (12.00-20.00); Blood Urea Nitrogen 19.1 mg/dL (9.0-27.0); Calcium 10.2 mg/dL (8.7-10.3); Carbon Dioxide 23.1 mmol/L (21.6-31.8); Chloride 106 mmol/L (96-109); Chol/HDL Ratio 3.06 Ratio; Glucose 149 mg/dL (70-110); LDL Cholesterol,Calculated 88.9 mg/dL (0.0-131.0); Potassium 4.6 mmol/L (3.5-5.5); Sodium 142 mmol/L (135-145)
== END | disposition home or self-care (01) ==
LOC: LABWHC1 09:44
PROVIDERS: ATTEND Family Medicine
DX: I10 Essential (primary) hypertension (principal); E11.9 Type 2 diabetes mellitus without complications; E78.5 Hyperlipidemia, unspecified; J02.9 Acute pharyngitis, unspecified; M85.80 Other specified disorders of bone density and structure, unspecified site
CPT/HCPCS: 36415; 80048; 80061; 82306; 83036; 84450; 84460; 85025; 87070

== ENCOUNTER 2025-04-17 10:41 | Emergency (ER) | payer OTHER ==
[2025-04-17 10:47] VITALS: RESP 20
[2025-04-17] MEDS: PROPARACAINE 0.5% OPHTH DROPS 15 ML BTL RIGHT EYE STA (10:59)
[2025-04-17] MEDS: FLUORESCEIN STRIPS 1 MG STRIP RIGHT EYE ONE (10:59)
--- NOTE | 2025-04-17 11:18 | ED ---
Eye Problem HPI - General Chief complaint: Eye Problems Stated complaint: R eye issue Time Seen by Provider: 04/17/25 11:17 Source: patient, RN notes reviewed Mode of arrival: ambulatory Limitations: no limitations - History of Present Illness Initial comments: 54-year-old female presenting for right eye redness x 1 day. States she woke up and noticed the redness on the medial aspect of her eye. Denies direct eye pain or vision changes. Denies fevers or severe headaches. No injury or trauma to the eye. Denies blood thinners. States she has had similar symptoms 3-4 times before. She does have a history of glaucoma and cataracts. - Related Data Home Medications Medication Instructions Recorded Confirmed Propranolol [Inderal] 40 mg PO HS 05/28/15 11/19/24 Insulin Degludec [Tresiba 35 units SQ BID 03/19/19 11/19/24 Flextouch U-200 Pen] DULoxetine HCL [Cymbalta] 60 mg PO HS 06/16/22 11/19/24 Cholecalciferol (Vitamin D3) 100 mcg PO HS 08/22/23 11/19/24 [Vitamin D3 (50 Mcg = 2000 Iu) Chew Tab] Cinnamon Bark [Cinnamon] 1,500 mg PO HS 08/22/23 11/19/24 Latanoprost Ophth [Xalatan 0.005%] 1 drops BOTH EYES HS 08/22/23 11/19/24 Ascorbic Acid [Vitamin C] 500 mg PO HS 11/19/24 11/19/24 Atorvastatin [Lipitor] 40 mg PO HS 11/19/24 11/19/24 Calcium Carbonate/Vitamin D3 2 tab PO HS 11/19/24 11/19/24 [Calcium 600-Vit D3 10 mcg (400 Iu)] Insulin Aspart [NovoLOG Flexpen] 2 units SQ AC-TID 11/19/24 11/19/24 Insulin Aspart [NovoLOG Flexpen] See Protocol SQ AC-TID 11/19/24 11/19/24 L.acidoph,Paracasei, B.lactis 2 cap PO HS 11/19/24 11/19/24 [Probiotic] Melatonin 10 mg PO HS 11/19/24 11/19/24 lisinopriL [Zestril] 2.5 mg PO HS 11/19/24 11/19/24 Previous Rx's Medication Instructions Recorded Ondansetron Odt [Zofran Odt] 4 mg PO Q8HR PRN #20 tab 11/19/24 Allergies Allergy/AdvReac Type Severity Reaction Status Date / Time amoxicillin Allergy Anaphylaxis Verified 04/17/25 10:47 ciprofloxacin HCl Allergy Itching Verified 04/17/25 10:47 [From Cipro] erythromycin base Allergy Swelling Verified 04/17/25 10:47 naproxen Allergy Anaphylaxis Verified 04/17/25 10:47 Penicillins Allergy CHEST PAIN Verified 04/17/25 10:47 AND RASH codeine AdvReac Nausea & Verified 04/17/25 10:47 Vomiting morphine AdvReac HARD TIME Verified 04/17/25 10:47 WAKING UP AND B/P DROPS VERY LOW sulfamethoxazole AdvReac Nausea & Verified 04/17/25 10:47 [From Bactrim] Vomiting tramadol HCl [From Ultram] AdvReac Nausea & Verified 04/17/25 10:47 Vomiting trimethoprim [From Bactrim] AdvReac Nausea & Verified 04/17/25 10:47 Vomiting Review of Systems ROS Statement: Those systems with pertinent positive or pertinent negative responses have been documented in the HPI. ROS Other: All systems not noted in ROS Statement are negative. 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 History of Any Multi-Drug Resistant Organisms: None Reported Past Surgical History: Bladder Surgery, Breast Surgery, Cholecystectomy, Hysterectomy Additional Past Surgical History / Comment(s): breast reduction, bladder suspension Past Anesthesia/Blood Transfusion Reactions: No Reported Reaction Additional Past Anesthesia/Blood Transfusion Reaction / Comment(s): "takes a little longer to wake up with anesthesia". no hx blood transfusion Past Psychological History: Depression Smoking Status: Never smoker Past Alcohol Use History: None Reported Past Drug Use History: None Reported - Past Family History Mother Family Medical History: Cancer, Coronary Artery Disease (CAD), CVA/TIA, Hypertension Additional Family Medical History / Comment(s): colon CA Father Family Medical History: Cancer, Coronary Artery Disease (CAD), Myocardial Infarction ([place]) Additional Family Medical History / Comment(s): polycythemia. from massive heart attack age 66 General Exam Limitations: no limitations General appearance: alert, in no apparent distress Head exam: Present: atraumatic, normocephalic, normal inspection Eye exam: Present: PERRL, EOMI, other (Average intraocular pressure 11 bilaterally. Right-sided fluorescein stain negative for uptake). Absent: normal appearance (Erythema to the medial aspect of the left eye, no hyphema), scleral icterus, conjunctival injection, periorbital swelling Pupils: Present: normal accommodation ENT exam: Present: normal exam, mucous membranes moist Neurological exam: Present: alert, oriented X3 Psychiatric exam: Present: normal affect, normal mood Skin exam: Present: warm, dry, intact, normal color. Absent: rash Course Vital Signs 04/17/25 10:44 Temperature 97.6 F Pulse Rate 74 Respiratory 20 Rate Blood Pressure 134/88 O2 Sat by Pulse 99 Oximetry Medical Decision Making - Medical Decision Making Was pt. sent in by a medical professional or institution (, PA, BLEACH TESTER, urgent care, hospital, or detention...) When possible be specific @ -No Did you speak to anyone other than the patient for history (EMS, parent, family, police, friend...)? What history was obtained from this source @ -No Did you review nursing and triage notes (agree or disagree)? Why? @ -I reviewed and agree with nursing and triage notes Were old charts reviewed (outside hosp., previous admission, EMS record, old EKG, old radiological studies, urgent care reports/EKG's, detention records)? Report findings @ -No old charts were reviewed Differential Diagnosis (chest pain, altered mental status, abdominal pain women, abdominal pain men, vaginal bleeding, weakness, fever, dyspnea, syncope, heada jacqueline, dizziness, GI bleed, back pain, seizure, CVA, palpatations, mental health, musculoskeletal)? @ -Subconjunctival hemorrhage, ocular foreign body, conjunctivitis, corneal abrasion EKG interpreted by me (3pts min.). @ -None X-rays interpreted by me (1pt min.). @ -None done CT interpreted by me (1pt min.). @ -None done U/S interpreted by me (1pt. min.). @ -None done What testing was considered but not performed or refused? (CT, X-rays, U/S, labs)? Why? @ -None What meds were considered but not given or refused? Why? @ -None Did you discuss the management of the patient with other professionals (professionals i.e. Dr., PA, BLEACH TESTER, lab, RT, psych nurse, hospice social worker, etl bi developer, teacher, information management officer, pillowcase cleaner)? Give summary @ -No Was smoking cessation discussed for >3mins.? @ -No Was critical care preformed (if so, how long)? @ -No Were there social determinants of health that impacted care today? How? (Homelessness, low income, unemployed, alcoholism, drug addiction, transportation, low edu. Level, literacy, decrease access to med. care, intermediate, rehab)? @ -No Was there de-escalation of care discussed even if they declined (Discuss DNR or withdrawal of care, Hospice)? DNR status @ -No What co-morbidities impacted this encounter? (DM, HTN, Smoking, COPD, CAD, Cancer, CVA, ARF, Chemo, Hep., AIDS, mental health diagnosis, sleep apnea, morbid obesity)? @ -None Was patient admitted / discharged? Hospital course, mention meds given and route, prescriptions, significant lab abnormalities, going to OR and other pertinent info. @ -Discharge. 54-year-old female presenting for right eye redness x 1 day. Denies blood thinners or trauma/injury. No vision changes. There is erythema on medial aspect of right eye consistent with subconjunctival hemorrhage. Average intraocular pressures 11 bilaterally. Fluorescein stain negative for uptake. Discussed diagnosis of subconjunctival hemorrhage with patient. Patient can be safely discharged home with close outpatient follow-up. Case was discussed with my ED attending Dr. Bell Undiagnosed new problem with uncertain prognosis? @ -No Drug Therapy requiring intensive monitoring for toxicity (Heparin, Nitro, Insulin, Cardizem)? @ -No Were any procedures done? @ -No Diagnosis/symptom? @ -Right subconjunctival hemorrhage Acute, or Chronic, or Acute on Chronic? @ -Acute Uncomplicated (without systemic symptoms) or Complicated (systemic symptoms)? @ -Uncomplicated Side effects of treatment? @ -No Exacerbation, Progression, or Severe Exacerbation? @ -No Poses a threat to life or bodily function? How? (Chest pain, [place], [place], pneumonia, PE, COPD, DKA, ARF, appy, cholecystitis, CVA, Diverticulitis, Homicidal, Suicidal, threat to staff... and all critical care pts) @ -No Disposition Clinical Impression: Subconjunctival hemorrhage Disposition: HOME SELF-CARE Condition: Stable Instructions (If sedation given, give patient instructions): Subconjunctival Hemorrhage (ED) Additional Instructions: Follow-up with your eye doctor as discussed. Please return to the Emergency Department if symptoms worsen or any other concerns. Is patient prescribed a controlled substance at d/c from ED?: No Referrals: Klaus Ruth DO [Primary Care Provider] - 1-2 days Time of Disposition: 11:17
[2025-04-17 11:25] VITALS: BP 132/68; PULSE 72; TEMP 98
== END 2025-04-17 11:25 | disposition home or self-care (01) ==
LOC: EC 10:41
DX: H11.31 Conjunctival hemorrhage, right eye (principal); Z88.0 Allergy status to penicillin; Z88.1 Allergy status to other antibiotic agents; Z88.5 Allergy status to narcotic agent; Z88.2 Allergy status to sulfonamides; Z88.6 Allergy status to analgesic agent
CPT/HCPCS: 99283